=== PATIENT | male | born 1940 | race Caucasian/White ===

== ENCOUNTER 2017-01-08 15:30 | Inpatient (IN) | payer MEDICARE, BC ==
[2017-01-09] MEDS ORDERED: Protamine Sulfate 50 MG/5 ML VIAL ONE (12:14)
[2017-01-09] MEDS ORDERED: Heparin 5,000 UNITS/ML VIAL ONE (12:14)
[2017-01-09] MEDS ORDERED: Fentanyl 100 MCG/2 ML VIAL ONE (12:32)
[2017-01-09] MEDS ORDERED: Glycopyrrolate 0.2 MG/ML 5 ML SYRINGE ONE ×2 (13:04)
[2017-01-09] MEDS ORDERED: Lidocaine 2% PF 10 ML AMP (For Epidural Use) ONE (13:04)
[2017-01-09] MEDS ORDERED: Propofol 200 MG/20 ML VIAL ONE (13:04)
[2017-01-09] MEDS ORDERED: Dexamethasone 20 MG/5 ML VIAL ONE (13:04)
[2017-01-09] MEDS ORDERED: Ondansetron HCl/PF 4 MG/2 ML Vial ONE (13:04)
[2017-01-09] MEDS ORDERED: ePHEDrine/0.9% NaCl/PF SYRINGE 50 mg/10 ml ONE ×2 (13:04→14:39)
[2017-01-09] MEDS ORDERED: PHENYLEPHRINE-NS 100 MCG/ML 10 ML SYRINGE ONE (13:04)
[2017-01-09] MEDS ORDERED: Ondansetron HCl/PF 4 MG/2 ML Vial IVP PRN ×2 (14:54→15:11)
[2017-01-09] MEDS ORDERED: Promethazine HCl 25 MG/ML VIAL SLOW IVP PRN (14:54)
[2017-01-09] MEDS ORDERED: Promethazine HCl 25 MG/ML VIAL IM PRN (14:54)
[2017-01-09] MEDS ORDERED: HYDROcodone/Acetaminophen 5/325 mg Tablet PO PRN ×2 (15:11)
[2017-01-09] MEDS ORDERED: Nitroglycerin 50 MG/250 ML BOT 250 ML IVPB PRN (15:11)
[2017-01-09] MEDS ORDERED: Acetaminophen 325 MG TAB PO PRN (15:11)
[2017-01-09] MEDS ORDERED: Fentanyl 100 MCG/2 ML VIAL SLOW IVP PRN ×2 (15:11)
[2017-01-09] MEDS ORDERED: Dextrose 5% in Water 1,000 ML IV PRN (15:11)
[2017-01-09] MEDS ORDERED: Dextrose 50% Abboject 50 ML SYRINGE SLOW IVP PRN (15:11)
[2017-01-09] MEDS ORDERED: Phenylephrine 10 MG/NS 250 ML 250 ML IVPB PRN (15:11)
[2017-01-09 16:39] VITALS: BMI 26.4
[2017-01-09] MEDS: Sodium Chloride 0.9% 1,000 ML IV SCH (16:49)
[2017-01-09] MEDS: HumaLOG 300 UNITS/3 ML VIAL SC PRN ×2 (17:42→21:41)
--- NOTE | 2017-01-09 20:19 | OP ---
DATE OF PROCEDURE: 01/09/2017 PREOPERATIVE DIAGNOSIS: Asymptomatic left carotid stenosis. POSTOPERATIVE DIAGNOSIS: Asymptomatic left carotid stenosis. PROCEDURE: Left carotid endarterectomy. SURGEON: Gerry Zhang M.D. ANESTHESIA: General endotracheal. ESTIMATED BLOOD LOSS: Less than 100. PROCEDURE IN DETAIL: After consent was obtained, the patient was brought to the operating room and placed in the supine position on the operating room table. Appropriate anesthetic monitor was place d and general endotracheal anesthesia induced. Head was rotated to the right. Left neck was preppe d and draped in usual sterile fashion. Skin incision was made along the anterior border of sternocl eidomastoid. Platysma was incised with electrocautery. Common internal and external carotid arteri es were carefully exposed. Facial vein was divided between clips and ties. The vagus nerve and hyp oglossal nerves were noted and protected throughout the procedure. The patient was given 7500 units of heparin. After 3 minutes, the internal common and external carotid arteries were serially clamp ed. Incision was made on the common carotid artery extended through the bulb distal to the plaque. A 10-Danish [place] shunt was placed and antegrade flow reestablished. There was a cicatrix of athe rosclerotic plaque at the origin of the internal carotid artery. The remainder of the carotid was f ree from any atherosclerotic disease. Endarterectomy was performed with hemostats through med ial layer. Eversion endarterectomy was performed in the external carotid artery. Good tapered dist al endpoint was obtained. Due to the size of the carotid, I elected to primarily close the carotid. This was closed with a running 6-0 Prolene suture. Prior to completion of the suture line, the sh unt was clamped and removed. Arteries were backbled and flushed with heparinized saline. Suture li ne was completed. Three separate stitches were placed for hemostasis. 50 mg of protamine was admin istered. Hemostasis was ensured. Wounds were copiously irrigated, closed in layers and Dermabond a pplied to the skin. The patient was awakened, extubated, and neurologically intact in the operating room, patient was transferred to recovery room in ICU after this, will be sent home tomorrow.
[2017-01-10] MEDS: Sodium Chloride 0.9% 1,000 ML IV SCH (02:12)
[2017-01-10] MEDS: HumaLOG 300 UNITS/3 ML VIAL SC PRN (06:12)
--- NOTE | 2017-01-10 06:27 | DIS ---
DIAGNOSES: Asymptomatic left carotid stenosis. PROCEDURES: Left carotid endarterectomy. DESCRIPTION OF HOSPITAL STAY: Mr. Coronado was admitted for elective carotid endarterectomy. He has done well. He is neurologically intact postoperatively, being discharged to home today in good cond ition. He will follow up with me in 2 weeks.
[2017-01-10 07:34] VITALS: TEMP 97.6
[2017-01-10] MEDS ORDERED: Aspirin 325 mg Enteric Coated Tablet PO SCH (09:00)
--- NOTE | 2017-01-26 22:53 | ADD-OP ---
ADDENDUM: During the initial dissection, a left internal jugular lymph node was taken and sent for routine pat hologic examination.
== END 2017-01-10 09:02 | disposition home or self-care (01) | DRG 39 ==
LOC: SURG A 01-09 08:55 → CCU 01-09 15:23
PROVIDERS: ADMIT Thoracic Surgery (Cardiothoracic Vascular Surgery); ATTEND Thoracic Surgery (Cardiothoracic Vascular Surgery)
PROC: 03CJ0ZZ Extirpation of Matter from Left Common Carotid Artery, Open Approach (ICD-10-PCS; principal; 2017-01-09)
PROC: 07B20ZX Excision of Left Neck Lymphatic, Open Approach, Diagnostic (ICD-10-PCS; 2017-01-09)
DX: I65.22 Occlusion and stenosis of left carotid artery (principal); E11.9 Type 2 diabetes mellitus without complications; I10 Essential (primary) hypertension; Z79.82 Long term (current) use of aspirin; Z95.810 Presence of automatic (implantable) cardiac defibrillator; Z89.422 Acquired absence of other left toe(s); Z87.891 Personal history of nicotine dependence; Z82.49 Family history of ischemic heart disease and other diseases of the circulatory system; Z80.7 Family history of other malignant neoplasms of lymphoid, hematopoietic and related tissues
CPT/HCPCS: 36416; 80048; 85027; 88184; 88305; 88341; 88342; 93005; 93010; 94640; J1100; J1642; J1644; J2001; J2405; J2704; J2720; J3010; J7620

== ENCOUNTER 2017-01-08 16:27 | Outpatient (CLI) | payer MEDICARE, BC ==
[2017-01-08 20:08] LABS: Anion Gap 17 mmol/L (10-20); BUN (Urea Nitrogen) 21 mg/dL (8.4-25.7); Calc. Creatinine Clearance 0 mL/min (70-130); Calcium 9.8 mg/dL (7.8-10.44); Carbon Dioxide 24 mmol/L (23-31); Chloride 105 mmol/L (98-107); Estimated GFR-MDRD 61
[2017-01-08 20:12] LABS: Hematocrit 39.5 % (42.0-52.0); Mean Platelet Volume 6.9 fL (7.4-10.4); Red Blood Cell (RBC) Count 4.26 mill/uL (4.70-6.10); White Blood Cell (WBC) Count 12.2 thou/uL (4.8-10.8)
--- NOTE | 2017-01-09 10:01 | EKG ---
Test Reason : PREOP Blood Pressure : / mmHG Vent. Rate : 059 BPM Atrial Rate : 058 BPM P-R Int : 000 ms QRS Dur : 150 ms QT Int : 428 ms P-R-T Axes : 000 107 -51 degrees QTc Int : 423 ms Demand pacemaker; interpretation is based on intrinsic rhythm Undetermined rhythm Right bundle branch block T wave abnormality, consider inferolateral ischemia Abnormal ECG When compared with ECG of 13-AUG-2015 15:51, Current undetermined rhythm precludes rhythm comparison, needs review Right bundle branch block is now Present Confirmed by NEIL CARL ([id number]) on 01/09/2017 10:01:17 AM Referred By: SAMANTHA Confirmed By:NEIL CARL
== END 2017-01-08 16:28 | disposition home or self-care (01) ==
LOC: LABBT 16:27
PROVIDERS: ATTEND Thoracic Surgery (Cardiothoracic Vascular Surgery)
DX: Z01.818 Encounter for other preprocedural examination (principal)
CPT/HCPCS: 80048; 85027; 93005; 93010

== ENCOUNTER 2017-06-08 13:22 | Inpatient (IN) | payer MEDICARE, BC ==
[2017-06-08] MEDS ORDERED: Clindamycin/D5W 600 mg/50 ml Premix Bag ONE (13:54)
[2017-06-08 14:08] LABS: #Eosinphils 0.2 thou/uL (0.0-0.7); #Monocytes 0.8 thou/uL (0.11-0.59); #Neutrophils 8.3 thou/uL (1.40-6.50); %Basophils 0.3 % (0.0-1.0); %Eosinophils 1.7 % (0.0-10.0); %Lymphocytes 17.9 % (21.0-51.0); %Monocytes 7.2 % (0.0-10.0); %Neutrophils 72.9 % (42.0-75.0); Hemoglobin 13.5 g/dL (14.0-18.0); Mean Corpuscular HGB CONC 32.9 g/dL (32.0-36.0); Mean Corpuscular Hemoglobin 29.5 pg (27.0-31.0); Mean Corpuscular Volume 89.6 fl (80.0-94.0); Mean Platelet Volume 5.9 fL (7.4-10.4); Platelet Count 462 thou/uL (130-400); RBC Distribution Width 12.5 % (11.5-14.5); Red Blood Cell (RBC) Count 4.57 mill/uL (4.70-6.10); White Blood Cell (WBC) Count 11.3 thou/uL (4.8-10.8)
[2017-06-08 14:36] LABS: ALT (SGPT) 17 U/L (8-55); AST (SGOT) 13 U/L (5-34); Albumin 3.3 g/dL (3.4-4.8); Alkaline Phosphatase 131 U/L (40-150); Anion Gap 14 mmol/L (10-20); BUN (Urea Nitrogen) 16 mg/dL (8.4-25.7); Bilirubin, Total 0.5 mg/dL (0.2-1.2); Calc. Creatinine Clearance 0 mL/min (70-130); Calcium 9.7 mg/dL (7.8-10.44); Carbon Dioxide 27 mmol/L (23-31); Chloride 97 mmol/L (98-107); Estimated GFR-MDRD 56; Globulin 4.3 g/dL (2.4-3.5); Potassium 4.6 mmol/L (3.5-5.1); Protein, Total 7.6 g/dL (5.8-8.1); Sodium 133 mmol/L (136-145)
[2017-06-08 14:42] LABS: Glucose 570 mg/dL (83-110)
[2017-06-08] MEDS ORDERED: Insulin Regular 300 UNITS/3 ML VIAL ONE (14:45)
--- NOTE | 2017-06-08 15:17 | ULT ---
BILATERAL TESTICULAR ULTRASOUND WITH DOPPLER: (Krishna scale, color flow, and Spectral Doppler) Date: 06/08/17 HISTORY: Left testicular pain. FINDINGS: The right testis measures 2.4 x 3.2 x 1.9 cm, without focal mass or microlithiasis. A right-sided hyd rocele is present. Flow is demonstrated to the right testis. The right epididymis also has a normal a ppearance with normal flow. The left testis or epididymis are not seen. There is a complex mass in the left scrotal sac measuring 4.5 x 4.3 x 4.3 cm. Peripheral blood flow is seen. IMPRESSION: Complex left-sided scrotal mass, which may either be due to abscess or malignancy. Urologic consultat ion is recommended. POS: NIVIA
[2017-06-08 16:37] LABS: Bilirubin Moderate (Negative); Blood, Urine Negative (Negative); Clarity CLEAR (Clear); Glucose, Urine (Dipstick) >=1000 mg/dL (Negative); Leukocyte Negative (Negative); Nitrite Negative (Negative); Protein, Urine (Dipstick) Negative (Neg-Trace); Specific Gravity, Urine 1.036 (1.002-1.036); Urobilinogen 0.2 mg/dL (0.2-1.0); pH, Urine 6.5 (5.0-9.0)
[2017-06-08] MEDS ORDERED: cefTRIAXone\\ROCEPHIN 2 GM in Sodium Chloride 0.9% 100 ML IVPB SCH (16:45)
[2017-06-08] MEDS ORDERED: Ondansetron HCl/PF 4 MG/2 ML Vial IVP PRN (17:03)
[2017-06-08] MEDS ORDERED: Acetaminophen 325 MG TAB PO PRN (17:03)
[2017-06-08] MEDS ORDERED: Senokot 8.6 MG TAB PO PRN (17:03)
[2017-06-08] MEDS ORDERED: Bisacodyl 5 MG TAB PO PRN (17:03)
[2017-06-08] MEDS ORDERED: HYDROcodone/Acetaminophen 5/325 mg Tablet PO PRN (17:03)
[2017-06-08] MEDS ORDERED: traMADol HCl 50 MG TAB PO PRN (17:09)
[2017-06-08] MEDS ORDERED: HYDROcodone/Acetaminophen 10/325 mg Tablet PO PRN (17:11)
[2017-06-08] MEDS ORDERED: Dextrose 50% Abboject 50 ML SYRINGE SLOW IVP PRN (17:11)
[2017-06-08] MEDS ORDERED: Dextrose 5% in Water 1,000 ML IV PRN (17:11)
[2017-06-08] MEDS ORDERED: VANCOMYCIN IVPB PRN (17:27)
[2017-06-08 17:53] LABS: Lactic Acid 2.5 mmol/L (0.5-2.2)
[2017-06-08 18:10] VITALS: BMI 25.7
[2017-06-08] MEDS: Sodium Chloride 0.9% 1,000 ML IV SCH (18:26)
--- NOTE | 2017-06-08 19:25 | HP ---
CHIEF COMPLAINT: Pain and swelling of the left testicle. HISTORY OF PRESENT ILLNESS: This is a 76-year-old gentleman with a past medical history significant for diabetes as well as hypertension, who presents to the hospital due to swelling and redness of the left testicle that started this morning. The was at bedside was able to give a full history as well as who states that the patient initially had these symptoms approximately about a week ago when he went to the hospital and was given doxycycline as well as pain medications. states that the patient had taken a full complete course of antibiotics, which had helped his symptoms significantly . They states that his symptoms had resolved. The swelling as well as redness that also resolved, b ut over one night, today his symptoms are suddenly became worse when he woke up this morning and noti jed that it was very red, swollen, and tender, so they decided to come to the hospital for further ev aluation and management. The patient denies any dysuria, colors, changes in urine, fevers, chills, o r night sweats. PAST MEDICAL HISTORY: See HPI. PAST SURGICAL HISTORY: Includes skin graft on the right hand. FAMILY HISTORY: Significant for cardiovascular disease as well as lymphoma. HOME MEDICATIONS: Still trying to be retrieved at this time. SOCIAL HISTORY: The patient denies any tobacco or recreational drug use or alcohol use. ALLERGIES: No known drug allergies. PHYSICAL EXAMINATION: VITAL SIGNS: Blood pressure is 156/62, pulse 78, respiratory rate was 18, temperature was 99.0. Pat ient was saturating 99% oxygen on room air. GENERAL: Patient was in no apparent distress, was resting comfortably in the bed, alert, awake, orie nted x3. HEENT: Normocephalic, atraumatic. Eyes: Pupils are round and reactive to light. Extraocular muscl es were intact. Conjunctivae was pink. Sclerae was nonicteric. Mouth: Oral mucosa pink and moist. No icterus was noted. NECK: Soft, supple. No JVD, carotid bruits, or lymphadenopathy. CARDIOVASCULAR: Regular rate and rhythm. S1, S2 sounds are heard. No S3, no S4, or murmurs. RESPIRATORY: Clear to auscultation bilaterally. No added sounds. ABDOMEN: Bowel sounds, soft, nontender, nondistended. EXTREMITIES: Pulses were 2+ both dorsalis and radial pulse. No pitting edema could be appreciated. GENITOURINARY: Patient's testicle was significantly enlarged, reddened, erythema, swollen, tender to touch. Very indurated. Could not appreciate much fluctuance of the left testicle. Right testicle was normal. No drainage or pus could be appreciated from the orifice of the penis. LABORATORY AND DIAGNOSTIC DATA: White blood cell count 11.3, hemoglobin was 13.5, platelet count was 462. Sodium was 133, potassium was 4.6, chloride was 97, bicarbonate was 21, BUN was 16, creatinine was 1.26, glucose 570 before improvement, 294 after insulin was given as well as fluids as well as l actic acid being 3.3. Urinalysis did show significant amount of glucose, otherwise was negative. Te sticular ultrasound showed complex left side has scrotal mass which may represent abscess or malignan cy. ASSESSMENT AND PLAN: 1. Large left testicle, testicular mass, possibly secondary to abscess. Malignancy is unlikely at t his time due to how rapid the swelling had pursued from yesterday to today. 2. Sepsis secondary to testicular cellulitis with probable abscess. 3. Diabetes, uncontrolled, possibly secondary to sepsis, significantly improved after fluids and ins ulin has been given in the ER. 4. Hypertension. PLAN: We will place the patient on IV antibiotics with vancomycin as well as Zosyn. We will get [facility] help to renally dosed his vancomycin. Urology has already been consulted, so we will foll ow up recommendations accordingly. We will draw another lactic acid as patient's initially lactic ac id was 3.3, but I do anticipated some improving with fluid boluses that he has received in the ER neeta may with the maintenance fluids he will be getting. We will resume home medication at the medicine re conciliation. If the patient is on metformin, we will hold off on it for now. Continue to cover him with sliding scale as well as rest of his diabetic medications. We will also resume any other medic ations that he may have after we can reconsolidate his medicine completely. We will place the patien t on ADA diet. Monitor labs in a.m. Pain management control as needed.
[2017-06-08] MEDS ORDERED: Vancomycin HCl 1.25 GM in Sodium Chloride 0.9% 250 ML 250 ML IVPB SCH (20:00)
--- NOTE | 2017-06-08 20:04 | CON ---
DATE OF CONSULTATION: 06/08/2017 HISTORY OF PRESENT ILLNESS: This is a 76-year-old white male who I was asked to see by the emergency room physician and then by the Hospitalist Service after he was admitted. He has a swollen left dain ticle. His and he have given me most of the history. This started a week and a day ago. He duvall d discomfort and swelling otherwise has in both sides of the scrotum and that was red. He went to a small hospital in [place] as they live closer to [place] and he had an ultrasound done there. Beba adam does not know what the ultrasound showed. He had no blood work and no urinalysis done. She s aid that they told them that they were not sure what he had. They could not find anything wrong. Beba childs thought maybe it was an infection and sent him home on doxycycline and some pain medication. He a ctually did improve and he finished the antibiotic yesterday and then today he had a return of pain j ust on the left side and swelling on the left side. examined and found the left testicle is charan y hard and tender and she brought him to [place]. Here at [place], he had a testicular ultraso und done, which I have looked at and the right testicle looks normal. The left testicle is swollen. He cannot really make out the normal architecture of the left testicle. There is no blood in the ce ntral part of what is probably the testicle. There was some blood flow seen in the periphery of it. This was red as either an abscess or malignancy. The does not recall being told anything like this being found on his ultrasound 8 days ago. His white count is slightly elevated at 11.3, his hem oglobin 13.5, his platelet count is normal. His glucose was found to be 570, he is a diabetic, but i t is quite high for him. They were concerned about how high it was, it has not been running this hig h. His liver function tests are normal. Creatinine is 1.27. His urinalysis showed sugar and some b ilirubin, but no red cells or white cells in the urine. His vital signs here, afebrile, vital signs stable, good O2 sat and a normal blood pressure. PAST MEDICAL HISTORY: He has diabetes. He has high blood pressure. MEDICATIONS: He takes metformin and valsartan/hydrochlorothiazide. SOCIAL HISTORY: He drinks socially. He does not smoke. PAST SURGICAL HISTORY: He has had toe amputations done because of peripheral vascular disease. He h as had some orthopedic surgery and some skin grafting. GENITOURINARY HISTORY: He gets up once at night to urinate. No history of infections in the urine, blood in the urine, burning when he urinates. No history of urinary tract stone disease. No history of prostate cancer or prostate surgery. He has some urgency to urinate, occasional urge incontinenc e. PHYSICAL EXAMINATION: PELVIC: He has no flank tenderness. ABDOMEN: Soft, nontender. Bladder is not appeared to be distended. GENITOURINARY: He is uncircumcised and there is phimosis. I cannot retract the skin. I would not r ecommend trying to because this is probably related to his diabetes. The right is in normal position and nontender and soft. There is no significant evidence of scrotal cellulitis. There is some thic kening of the scrotal skin. There is a firm and swollen mass in the left testicle, which I am assumi ng is probably his testicle inside after the tunica vaginalis. It is tender and very indurated. He has no inguinal lymph nodes. IMPRESSION AND PLAN: Abnormal left testicle. I think this probably is at this point a vascular prob philippe possibly related to his diabetes now, but may have started with an infection. He does not have a ny history of trauma to suggest this started from trauma. He seems to be a bit old that this would b e a torsion. We do not have any knowledge of what his ultrasound looked like a week ago. I am going to try to get that information sent from [place]. I will see also if they happened to do any bloo d or urine studies on him there. His says they did, but perhaps they did not, she missed that. He is currently on antibiotics and certainly not septic looking currently. I think he may ultimatel y need to have his testicle removed. We talked but even doing that tomorrow. We will make him n.p.o . after midnight from the outside chance that we do need to do that. I think if possibly he starts t o show some improvement on the antibiotic that he is on, which is piperacillin and tazobactam, then eran martinez we will watch him for another day or so and see if this perhaps does start to respond. I have a sked his nurse to get him to sign a release of records from the [facility] to fax that over a nd hopefully get that information by the morning and make him n.p.o. after midnight. We will hold hi s Lovenox in case he does go to the OR tomorrow.
[2017-06-08] MEDS: Piperacillin/Tazobactam 3.375 GM in Sodium Chloride 0.9% 100 ML IVPB SCH (20:05)
[2017-06-09] MEDS: Piperacillin/Tazobactam 3.375 GM in Sodium Chloride 0.9% 100 ML IVPB SCH ×4 (00:35→17:13)
[2017-06-09] MEDS: Sodium Chloride 0.9% 1,000 ML IV SCH ×3 (05:32→20:30)
[2017-06-09 06:04] LABS: #Eosinphils 0.2 thou/uL (0.0-0.7); #Lymphocytes 2.4 thou/uL (1.20-3.40); #Monocytes 0.9 thou/uL (0.11-0.59); #Neutrophils 8.3 thou/uL (1.40-6.50); %Basophils 0.3 % (0.0-1.0); %Lymphocytes 20.5 % (21.0-51.0); %Monocytes 7.4 % (0.0-10.0); %Neutrophils 69.7 % (42.0-75.0); Hemoglobin 11.9 g/dL (14.0-18.0); Mean Corpuscular HGB CONC 31.4 g/dL (32.0-36.0); Mean Corpuscular Hemoglobin 27.8 pg (27.0-31.0); Mean Corpuscular Volume 88.6 fl (80.0-94.0); Mean Platelet Volume 5.7 fL (7.4-10.4); Platelet Count 440 thou/uL (130-400); RBC Distribution Width 12.4 % (11.5-14.5); Red Blood Cell (RBC) Count 4.27 mill/uL (4.70-6.10); White Blood Cell (WBC) Count 11.8 thou/uL (4.8-10.8)
[2017-06-09 06:14] LABS: Anion Gap 10 mmol/L (10-20); BUN (Urea Nitrogen) 13 mg/dL (8.4-25.7); Calc. Creatinine Clearance 90 mL/min (70-130); Calcium 8.5 mg/dL (7.8-10.44); Carbon Dioxide 26 mmol/L (23-31); Chloride 105 mmol/L (98-107); Estimated GFR-MDRD Greater than 90; Glucose 138 mg/dL (83-110); Potassium 4.2 mmol/L (3.5-5.1); Sodium 137 mmol/L (136-145)
[2017-06-09] MEDS ORDERED: Enoxaparin Sodium 40 MG/0.4 ML SYRINGE SC SCH (09:00)
[2017-06-09] MEDS ORDERED: FLU VACC TS2017-18 (>65YR) 0.5 ML SYRINGE IM ONE (09:00)
[2017-06-09] MEDS ORDERED: Prevnar 13-Val Conj/PF 0.5 ML SYRINGE IM ONE (09:00)
[2017-06-09] MEDS ORDERED: Ondansetron HCl/PF 4 MG/2 ML Vial IVP PRN (10:27)
--- NOTE | 2017-06-09 10:29 | PDOC.PN ---
- Subjective Encounter Start Date: 06/09/17 Encounter Start Time: 09:30 states he is doing well minimal pain of the testicle when lying completely still at bedside - Objective Resuscitation Status: Resuscitation Status FULL:Full Resuscitation Vital Signs & Weight: Vital Signs (12 hours) Temp Pulse Resp BP Pulse Ox 06/09/17 08:00 98.5 F 76 16 96 06/09/17 07:12 98.5 F 76 16 141/63 H 96 06/09/17 04:00 97.7 F 69 20 138/70 97 06/09/17 00:00 97.5 F L 69 18 159/81 H 97 I&O: 06/08/17 06/09/17 06/10/17 06:59 06:59 06:59 Intake Total 1700 Balance 1700 Result Diagrams: 06/09/17 05:20 06/09/17 05:20 Additional Labs: Accuchecks 06/09/17 06/08/17 06/08/17 05:23 20:22 16:34 POC Glucose 201 H 303 H 294 H Phys Exam - Physical Examination Constitutional: NAD HEENT: PERRLA, moist MMs, sclera anicteric Neck: no nodes, no JVD, supple Respiratory: no wheezing, no rales, clear to auscultation bilateral Cardiovascular: RRR, no significant murmur, no rub Gastrointestinal: soft, non-tender, no distention Musculoskeletal: no edema, pulses present Neurological: non-focal, normal sensation Psychiatric: normal affect, A&O x 3 -: right testicle swollen, red and very tender to light touch Dx/Plan (1) Mass of left testicle Code(s): N50.9 - DISORDER OF MALE GENITAL ORGANS, UNSPECIFIED Status: Acute (2) Sepsis affecting skin Code(s): A41.9 - SEPSIS, UNSPECIFIED ORGANISM Status: Acute Comment: due to left testicle (3) DM (diabetes mellitus) type II controlled peripheral vascular disorder Code(s): E11.51 - TYPE 2 DIABETES W DIABETIC PERIPHERAL ANGIOPATH W/O GANGRENE Status: Acute - Plan cont current plan of care, plan discussed w/ family, continue antibiotics * . to undergo orchiectomy today continue IV abx pain mgmt control follow recs from urology post surgery
[2017-06-09] MEDS ORDERED: Fentanyl 100 MCG/2 ML VIAL ONE (10:39)
[2017-06-09] MEDS ORDERED: Bupivacaine 0.5% 10 ML VIAL ONE ×2 (11:04→11:56)
--- NOTE | 2017-06-09 12:19 | OP ---
DATE OF PROCEDURE: 06/09/2017 PREOPERATIVE DIAGNOSIS: Left scrotal mass. POSTOPERATIVE DIAGNOSES: Left scrotal mass plus left testicular epididymal abscess. PROCEDURE PERFORMED: Scrotal exploration, left orchiectomy. SURGEON: Dr. Gerry Kamara. ANESTHESIA: General with local. ESTIMATED BLOOD LOSS: Less than 50 ml. DRAINS PLACED: A 1 inch [place] drain passed into his testicle, epididymis, and cord structures. CULTURES SENT: Pus for aerobic, anaerobic, and Gram stain. OPERATIVE TECHNIQUE: After obtaining written and verbal consent from the patient, he was taken to [facility] operating suite. He was given a general anesthetic, oral obturator intubation. He had PlexiPulses placed on his lower extremities. His scrotum was shaved. He sterilely prepped and draped. An inci tram was made along the median raphe and dependent portion of the scrotum and taken into the left hem iscrotum. There was a lot of edema to the scrotal wall into the testicular tunica. We entered the t unica vaginalis, and under a fair amount of pressure, probably 50-60 mL of pus were released. We cul tured this. We then opened up the incision inside of the tunica vaginalis and testicle and probably the epididymis is what had abscess and then we were able to dissect the cords to get this free up hig h into the scrotum and placed a straight hemostat, divided into 2, and then placed Kellys across it x 2 before removing the specimen and using 0 chromic ties to secure the cord structures x2 on both side s. We then removed the tunica vaginalis, which was adherent to the inside of the testicle. We then irrigated this area out copiously with sterile saline, obtained hemostasis with electrocautery unit, and placed a Jacki drain high up in the inguinal region and brought down through the scrotum exitin g the wound at most inferior aspect. We then closed dartos layer with 3 single 3-0 chromic stitches and the skin with 2 single chromic stitches that was quite loose. We then placed 4 x 4s and web pant ies. The patient was then awakened and extubated and taken by stretcher to the recovery room.
[2017-06-09] MEDS ORDERED: traMADol HCl 50 MG TAB PO PRN (12:31)
[2017-06-09] MEDS ORDERED: PROPOFOL 200 MG/20 ML VIAL ONE (15:45)
[2017-06-09] MEDS ORDERED: Lidocaine 1% PF 5 ML VIAL ONE (15:45)
[2017-06-09] MEDS ORDERED: Ondansetron HCl/PF 4 MG/2 ML Vial ONE (15:45)
[2017-06-09] MEDS ORDERED: Dexamethasone 20 MG/5 ML VIAL ONE (15:45)
[2017-06-09] MEDS: HumaLOG 300 UNITS/3 ML VIAL SC PRN ×2 (17:10→20:43)
[2017-06-09] MEDS ORDERED: Vancomycin HCl 1.25 GM in Sodium Chloride 0.9% 250 ML 250 ML IVPB SCH (18:00)
[2017-06-09] MEDS: Vancomycin HCl 1.25 GM in Sodium Chloride 0.9% 250 ML 250 ML IVPB SCH (18:34)
[2017-06-10] MEDS: Piperacillin/Tazobactam 3.375 GM in Sodium Chloride 0.9% 100 ML IVPB SCH ×4 (00:46→17:22)
[2017-06-10 05:19] LABS: #Lymphocytes 1.4 thou/uL (1.20-3.40); #Monocytes 0.7 thou/uL (0.11-0.59); #Neutrophils 11.7 thou/uL (1.40-6.50); %Basophils 0.1 % (0.0-1.0); %Eosinophils 0.2 % (0.0-10.0); %Lymphocytes 10.4 % (21.0-51.0); %Monocytes 4.9 % (0.0-10.0); %Neutrophils 84.4 % (42.0-75.0); Hemoglobin 11.7 g/dL (14.0-18.0); Mean Corpuscular HGB CONC 32.9 g/dL (32.0-36.0); Mean Corpuscular Hemoglobin 29.3 pg (27.0-31.0); Mean Platelet Volume 5.9 fL (7.4-10.4); Platelet Count 445 thou/uL (130-400); RBC Distribution Width 12.4 % (11.5-14.5); White Blood Cell (WBC) Count 13.9 thou/uL (4.8-10.8)
[2017-06-10 05:29] LABS: Anion Gap 10 mmol/L (10-20); BUN (Urea Nitrogen) 13 mg/dL (8.4-25.7); Calc. Creatinine Clearance 75 mL/min (70-130); Calcium 8.5 mg/dL (7.8-10.44); Carbon Dioxide 26 mmol/L (23-31); Chloride 105 mmol/L (98-107); Estimated GFR-MDRD 77; Glucose 253 mg/dL (83-110); Potassium 4.5 mmol/L (3.5-5.1); Sodium 136 mmol/L (136-145)
[2017-06-10] MEDS: HumaLOG 300 UNITS/3 ML VIAL SC PRN ×4 (06:33→21:11)
[2017-06-10] MEDS: Sodium Chloride 0.9% 1,000 ML IV SCH (07:15)
--- NOTE | 2017-06-10 11:51 | PDOC.PN ---
- Subjective Encounter Start Date: 06/10/17 Encounter Start Time: 09:35 Subjective: pain is better, is amb in room -: eating better - Objective Resuscitation Status: Resuscitation Status FULL:Full Resuscitation MAR Reviewed: Yes Vital Signs & Weight: Vital Signs (12 hours) Temp Pulse Resp BP Pulse Ox 06/10/17 08:00 97.6 F 82 16 98 06/10/17 07:59 97.6 F 82 16 144/81 H 98 06/10/17 04:59 97.4 F L 73 12 116/67 99 06/10/17 00:00 98.2 F 78 12 125/71 98 I&O: 06/09/17 06/10/17 06/11/17 06:59 06:59 06:59 Intake Total 1700 480 Balance 1700 480 Result Diagrams: 06/10/17 04:28 06/10/17 04:28 Additional Labs: Accuchecks 06/10/17 06/09/17 06/09/17 05:52 20:32 16:21 POC Glucose 268 H 412 H 369 H 06/09/17 12:22 POC Glucose 159 H Phys Exam - Physical Examination HEENT: PERRLA, moist MMs Neck: no JVD, supple Respiratory: no wheezing, no rales Cardiovascular: RRR, no significant murmur Gastrointestinal: soft, non-tender, positive bowel sounds Musculoskeletal: no edema, pulses present Neurological: non-focal, moves all 4 limbs Psychiatric: A&O x 3 Dx/Plan (1) Mass of left testicle Code(s): N50.9 - DISORDER OF MALE GENITAL ORGANS, UNSPECIFIED Status: Acute Comment: s/p left orchiectomy for mass, epididymal abscess (2) DM type 2 (diabetes mellitus, type 2) Status: Chronic Qualifiers: Diabetes mellitus complication status: with unspecified complications 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 insulin use: with intermediate use Qualified Code(s) : E11.8 - Type 2 diabetes mellitus with unspecified complications; Z79.4 - exterminator helper (current) use of insulin; Z79.4 - exterminator helper (current) use of insulin; Z79.4 - senior care (current) use of insulin; Z79.4 - exterminator helper (current) use of insulin (3) HTN (hypertension) Code(s): I10 - ESSENTIAL (PRIMARY) HYPERTENSION Status: Chronic Qualifiers: Hypertension type: essential hypertension Qualified Code(s): I10 - Essential (primary) hypertension (4) Dyslipidemia Code(s): E78.5 - HYPERLIPIDEMIA, UNSPECIFIED Status: Chronic - Plan is on vanc and zosyn -: iv hydration per urology advice -: await cultures -: dc plan per urology advice -: add home meds leevemir and metformin for dm * . Review of Systems - Medications/Allergies Allergies/Adverse Reactions: Allergies Allergy/AdvReac Type Severity Reaction Status Date / Time No Known Drug Allergies Allergy Verified 06/08/17 19:00 Medications: Current Medications Acetaminophen (Tylenol) 650 mg PO Q6H PRN PRN Reason: Headache/Fever or Pain Hydrocodone Bitart/Acetaminophen ([place] 5/325) 1 tab PO Q4H PRN PRN Reason: Moderate Pain (4-6) Hydrocodone Bitart/Acetaminophen ([place] 10/325) 1 tab PO Q4H PRN PRN Reason: Severe Pain (7-10) Atorvastatin Calcium (Lipitor) 20 mg PO HS ATUL Bisacodyl (Dulcolax) 10 mg PO DAILYPRN PRN PRN Reason: Constipation Cyanocobalamin (Vitamin B-12) 1,000 mcg PO DAILY [facility] Dextrose/Water (Dextrose 50%) 25 gm SLOW IVP PRN PRN PRN Reason: Hypoglycemia Glucagon (Glucagon) 1 mg IM PRN PRN PRN Reason: Hypoglycemia Sodium Chloride (Normal Saline 0.9%) 1,000 mls @ 100 mls/hr IV .Q10H [facility] Last Admin: 06/10/17 07:15 Dose: Not Given Piperacillin Sod/Tazobactam (Sod 3.375 gm/ Sodium Chloride) 100 mls @ 200 mls/ hr IVPB Q6HR [facility] Last Admin: 06/10/17 05:28 Dose: 100 mls Dextrose/Water (D5w) 1,000 mls @ 0 mls/hr IV .Q0M PRN; As Directed PRN Reason: Hypoglycemia Vancomycin HCl 1.25 gm/ Sodium (Chloride) 250 mls @ 166.667 mls/hr IVPB 1800 [facility] Last Admin: 06/09/17 18:34 Dose: 250 mls Insulin Detemir 35 units/ (Miscellaneous Medication) 0.35 mls @ 0 mls/hr SC QAM [facility] Insulin Human Lispro (Humalog) 0 units SC .MODERATE SLIDING SC PRN PRN Reason: Moderate Correctional Scale Last Admin: 06/10/17 06:33 Dose: 6 unit Memantine (Namenda) 10 mg PO BID [facility] Metformin HCl (Glucophage) 1,000 mg PO BID-[facility] Metoprolol Tartrate (Lopressor) 75 mg PO BID [facility] Miscellaneous Medication (Pharmacy To Dose) 1 each IVPB PRN PRN PRN Reason: Pharmacy to dose Ondansetron HCl (Zofran) 4 mg IVP Q6H PRN PRN Reason: Nausea/Vomiting Senna (Senokot) 2 tab PO HSPRN PRN PRN Reason: Constipation Sodium Chloride (Flush - Normal Saline) 10 ml IVF Q12HR [facility] Last Admin: 06/10/17 07:15 Dose: Not Given Sodium Chloride (Flush - Normal Saline) 10 ml IVF PRN PRN PRN Reason: Saline Flush Spironolactone (Aldactone) 12.5 mg PO QAM-[facility] Tramadol HCl (Ultram) 50 mg PO Q6H PRN PRN Reason: Mild Pain (1-3)
[2017-06-10] MEDS: metFORMIN 500 MG TAB PO SCH (17:22)
[2017-06-10 17:34] LABS: Vancomycin, Trough 6.7 ug/mL
[2017-06-10] MEDS: Vancomycin HCl 1.25 GM in Sodium Chloride 0.9% 250 ML 250 ML IVPB SCH ×2 (18:23→18:24)
[2017-06-10] MEDS ORDERED: Atorvastatin Calcium 20 MG TAB PO SCH (21:00)
[2017-06-10] MEDS: Metoprolol Tartrate 50 MG TAB PO SCH (21:09)
[2017-06-11] MEDS: Piperacillin/Tazobactam 3.375 GM in Sodium Chloride 0.9% 100 ML IVPB SCH ×3 (00:01→13:13)
[2017-06-11] MEDS: Sodium Chloride 0.9% 1,000 ML IV SCH (00:02)
[2017-06-11] MEDS ORDERED: Spironolactone 25 MG TAB PO SCH (08:00)
[2017-06-11] MEDS: Vancomycin HCl 1.25 GM in Sodium Chloride 0.9% 250 ML 250 ML IVPB SCH (08:14)
[2017-06-11] MEDS: metFORMIN 500 MG TAB PO SCH ×2 (08:15→17:28)
[2017-06-11] MEDS: Metoprolol Tartrate 50 MG TAB PO SCH (08:15)
[2017-06-11 08:39] VITALS: TEMP 98
[2017-06-11 08:50] LABS: Anion Gap 10 mmol/L (10-20); BUN (Urea Nitrogen) 13 mg/dL (8.4-25.7); Calc. Creatinine Clearance 79 mL/min (70-130); Calcium 8.1 mg/dL (7.8-10.44); Carbon Dioxide 25 mmol/L (23-31); Chloride 108 mmol/L (98-107); Estimated GFR-MDRD 82; Glucose 134 mg/dL (83-110); Potassium 3.7 mmol/L (3.5-5.1); Sodium 139 mmol/L (136-145)
[2017-06-11 08:55] LABS: #Basophils 0.1 thou/uL (0.0-0.2); #Eosinphils 0.2 thou/uL (0.0-0.7); #Lymphocytes 3.3 thou/uL (1.20-3.40); #Monocytes 0.5 thou/uL (0.11-0.59); #Neutrophils 6.2 thou/uL (1.40-6.50); %Basophils 0.6 % (0.0-1.0); %Eosinophils 2.3 % (0.0-10.0); %Lymphocytes 31.6 % (21.0-51.0); %Monocytes 5.1 % (0.0-10.0); %Neutrophils 60.4 % (42.0-75.0); Hemoglobin 11.2 g/dL (14.0-18.0); Mean Corpuscular HGB CONC 32.1 g/dL (32.0-36.0); Mean Corpuscular Hemoglobin 29.2 pg (27.0-31.0); Mean Corpuscular Volume 90.8 fl (80.0-94.0); Mean Platelet Volume 5.9 fL (7.4-10.4); Platelet Count 423 thou/uL (130-400); RBC Distribution Width 12.5 % (11.5-14.5); Red Blood Cell (RBC) Count 3.83 mill/uL (4.70-6.10); White Blood Cell (WBC) Count 10.3 thou/uL (4.8-10.8)
[2017-06-11] MEDS ORDERED: Cyanocobalamin (Vitamin B-12) 1,000 MCG TAB PO SCH (09:00)
[2017-06-11] MEDS ORDERED: Non-Formulary Item 1 EACH (Levemir Flexpen [Levemir Flexpen] 35 UNITS) SC SCH (09:00)
[2017-06-11] MEDS ORDERED: Insulin Detemir 100 UNITS/ML 35 UNITS in Pre-Filled Syringe 1 EACH SC SCH (09:00)
--- NOTE | 2017-06-11 12:16 | PDOC.PN ---
- Subjective Encounter Start Date: 06/11/17 Encounter Start Time: 08:00 Subjective: awake, responds to verbal questions -: is amb to restroom and back -: pain is better - Objective Resuscitation Status: Resuscitation Status FULL:Full Resuscitation MAR Reviewed: Yes Vital Signs & Weight: Vital Signs (12 hours) Temp Pulse Resp BP Pulse Ox 06/11/17 08:38 98.0 F 71 14 148/70 H 97 06/11/17 08:00 98.0 F 71 14 97 I&O: 06/10/17 06/11/17 06/12/17 06:59 06:59 06:59 Intake Total 480 180 Balance 480 180 Result Diagrams: 06/11/17 08:20 06/11/17 08:20 Additional Labs: Accuchecks 06/11/17 06/11/17 06/10/17 11:23 06:02 19:57 POC Glucose 186 H 156 H 308 H 06/10/17 06/10/17 16:41 11:28 POC Glucose 339 H 246 H Phys Exam - Physical Examination HEENT: PERRLA, moist MMs Neck: no JVD, supple Respiratory: no wheezing, no rales Cardiovascular: RRR, no significant murmur Gastrointestinal: soft, non-tender, positive bowel sounds Musculoskeletal: no edema, pulses present Neurological: non-focal, moves all 4 limbs Psychiatric: A&O x 3 Dx/Plan (1) Mass of left testicle Code(s): N50.9 - DISORDER OF MALE GENITAL ORGANS, UNSPECIFIED Status: Acute Comment: s/p left orchiectomy for mass, epididymal abscess (2) DM type 2 (diabetes mellitus, type 2) Status: Chronic Qualifiers: Diabetes mellitus complication status: with unspecified complications Diabetes mellitus chcf insulin use: with wire inserter use Qualified Code(s) : E11.8 - Type 2 diabetes mellitus with unspecified complications; Z79.4 - long-term (current) use of insulin; Z79.4 - 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 Review of Systems - Medications/Allergies Allergies/Adverse Reactions: Allergies Allergy/AdvReac Type Severity Reaction Status Date / Time No Known Drug Allergies Allergy Verified 06/08/17 19:00 Medications: Current Medications Acetaminophen (Tylenol) 650 mg PO Q6H PRN PRN Reason: Headache/Fever or Pain Hydrocodone Bitart/Acetaminophen (Jordan 5/325) 1 tab PO Q4H PRN PRN Reason: Moderate Pain (4-6) Hydrocodone Bitart/Acetaminophen (Jordan 10/325) 1 tab PO Q4H PRN PRN Reason: Severe Pain (7-10) Atorvastatin Calcium (Lipitor) 20 mg PO HS [facility] Last Admin: 06/10/17 21:09 Dose: 20 mg Bisacodyl (Dulcolax) 10 mg PO DAILYPRN PRN PRN Reason: Constipation Cyanocobalamin (Vitamin B-12) 1,000 mcg PO DAILY [facility] Last Admin: 06/11/17 08:20 Dose: 1,000 mcg Dextrose/Water (Dextrose 50%) 25 gm SLOW IVP PRN PRN PRN Reason: Hypoglycemia Glucagon (Glucagon) 1 mg IM PRN PRN PRN Reason: Hypoglycemia Piperacillin Sod/Tazobactam (Sod 3.375 gm/ Sodium Chloride) 100 mls @ 200 mls/ hr IVPB Q6HR [facility] Last Admin: 06/11/17 06:02 Dose: 100 mls Dextrose/Water (D5w) 1,000 mls @ 0 mls/hr IV .Q0M PRN; As Directed PRN Reason: Hypoglycemia Insulin Detemir 35 units/ (Miscellaneous Medication) 0.35 mls @ 0 mls/hr SC QAM [facility] Last Admin: 06/11/17 09:29 Dose: 0.35 mls Vancomycin HCl 1.25 gm/ Sodium (Chloride) 250 mls @ 166.667 mls/hr IVPB 0600, 1800 [facility] Last Admin: 06/11/17 08:14 Dose: 250 mls Insulin Human Lispro (Humalog) 0 units SC .MODERATE SLIDING SC PRN PRN Reason: Moderate Correctional Scale Last Admin: 06/10/17 21:11 Dose: 8 unit Memantine (Namenda) 10 mg PO BID [facility] Last Admin: 06/11/17 08:20 Dose: 10 mg [facility] Last Admin: 06/11/17 08:15 Dose: 1,000 mg Metoprolol Tartrate (Lopressor) 75 mg PO BID [facility] Last Admin: 06/11/17 08:15 Dose: 75 mg Miscellaneous Medication (Pharmacy To Dose) 1 each IVPB PRN PRN PRN Reason: Pharmacy to dose Ondansetron HCl (Zofran) 4 mg IVP Q6H PRN PRN Reason: Nausea/Vomiting Senna (Senokot) 2 tab PO HSPRN PRN PRN Reason: Constipation Sodium Chloride (Flush - Normal Saline) 10 ml IVF Q12HR [facility] Last Admin: 06/11/17 08:22 Dose: Not Given Sodium Chloride (Flush - Normal Saline) 10 ml IVF PRN PRN PRN Reason: Saline Flush Spironolactone (Aldactone) 12.5 mg PO QAM[facility] Last Admin: 06/11/17 08:19 Dose: 12.5 mg Tramadol HCl (Ultram) 50 mg PO Q6H PRN PRN Reason: Mild Pain (1-3)
[2017-06-11] MEDS: HumaLOG 300 UNITS/3 ML VIAL SC PRN ×2 (13:19→17:30)
--- NOTE | 2017-06-11 15:29 | PQF ---
DATE: 06-11-17 ATTN: DR. MARIOLA MANRIQUEZ Please exercise your independent, professional judgment in responding to the clarification form. Clinical indicators are provided on the bottom of this form for your review Please check appropriate box(s) to clarify if the following diagnosis has been ruled in our ruled out: SEPSIS (CDI/Coding list diagnosis here) [ ] Ruled in diagnosis [ ] Continue to treat [ ] Resolved [ x ] Ruled out diagnosis [ ] Other diagnosis [ ] Unable to determine In addition, please specify: Present on Admission (POA): [ ] Yes [ ] No [ ] Unable to determine For continuity of documentation, please document condition throughout progress notes and discharge summary. Thank You. CLINICAL INDICATORS - SIGNS / SYMPTOMS / LABS H&P: SEPSIS SECONDARY TO TESTICULAR CELLULITIS WITH PROBABLE ABSCESS. PN DR. VERDIN 06-09-17: ACUTE SEPSIS DUE TO L TESTICLE PN DR. MANRIQUEZ 06-11-17: ACUTE MASS OF LEFT TESTICLE WBC: 06-08-17: 11.3 06-09-17: 11.8 06-10-17: 13.9 LACTIC ACID: 06-08-17: 3.3 06-08-17: 2.5 06-08-17: 3.0 RISK FACTORS: H&P: HX OF HTN, DIABETES UNCONTROLLED, HX OF PVD WITH TOE AMPUTATIONS TREATMENTS: (MAR) KEFLEX, VANCOMYCIN, ZOSYN, IVF (This form is maintained as a part of the permanent medical record) 2014 [employer] All Rights Reserved APRIL [email or web address] Office: [phone] [facility]
[2017-06-11] MEDS ORDERED: Cephalexin 250 MG CAP PO SCH (17:00)
[2017-06-11 17:57] VITALS: BP 157/67
--- NOTE | 2017-06-12 01:46 | DIS ---
DATE OF ADMISSION: 06/08/2017 DATE OF DISCHARGE: 06/11/2017 DISCHARGE DISPOSITION: To home. PRIMARY DISCHARGE DIAGNOSES: Status post left orchiectomy for mass/epididymal abscess. SECONDARY DISCHARGE DIAGNOSES: Diabetes mellitus type 2, hypertension, dyslipidemia. PROCEDURES DONE DURING HOSPITALIZATION: The patient has had testicular ultrasound done on the day of admission which showed complex left-sided scrotal mass, which may either be due to abscess or malign maribel. He has had scrotal exploration with left orchiectomy done by Dr. Kamara on 06/09/2017. Discha rge H and H 11 and 34, platelet count 423. Discharge BUN and creatinine is 13 and 0.9. Blood cultur es x2, no growth. Scrotal abscess culture grew Strep agalactiae group B. INPATIENT CONSULTS: Dr. Kamara for Urology. DISCHARGE PLAN: Patient to follow up with Dr. Kamara as advised and primary care physician in 1 week . BRIEF COURSE DURING HOSPITALIZATION: Patient initially came to ER with complaints of pain and swelli ng in his left scrotal area. He had ultrasound done, which was suspicious for a mass versus abscess in the scrotum on the left side. He has had consultation with Dr. Kamara for Urology. He has subseq uently had left orchiectomy with scrotal exploration done. He has had a left epididymal abscess, whi ch was drained as well. Histopathology is pending at present. His cultures grew Strep agalactiae fr om the scrotum. He has been placed on Keflex for another 5 days per urology advice. He needs to fol low up with Dr. Kamara as advised. Patient has indwelling drain in the scrotal area, which will be p ulled out in the followup appointment in the next [address] Kamara's office. He needs to follow up with his primary care physician in 1 week. Please see a [id number] documentation on [employer] fo r the day of discharge.
[2017-06-12] MEDS ORDERED: Saccharomyces boulardii 250 MG CAP PO SCH (09:00)
== END 2017-06-11 19:11 | disposition home or self-care (01) | DRG 712 ==
LOC: ERS 13:22 → T4-A 16:20
PROVIDERS: ADMIT Internal Medicine; ATTEND Internal Medicine
PROC: 0VTB0ZZ Resection of Left Testis, Open Approach (ICD-10-PCS; principal; 2017-06-09)
PROC: 0V9 Male Reproductive System, Drainage (ICD-10-PCS; 2017-06-09)
DX: N45.4 Abscess of epididymis or testis (principal); E11.51 Type 2 diabetes mellitus with diabetic peripheral angiopathy without gangrene; E11.65 Type 2 diabetes mellitus with hyperglycemia; N50.9 Disorder of male genital organs, unspecified; Z79.4 Long term (current) use of insulin; I10 Essential (primary) hypertension; E78.5 Hyperlipidemia, unspecified; Z89.422 Acquired absence of other left toe(s); Z95.810 Presence of automatic (implantable) cardiac defibrillator
CPT/HCPCS: 36415; 36416; 76870; 80048; 80053; 80202; 81003; 83605; 85025; 87040; 87070; 87077; 87205; 88305; 90471; 90682; 93976; 96361; 96365; 96375; A4216; G0008; J0696; J1100; J1815; J2001; J2405; J2543; J2704; J3010; J3370; J3490; J7050; Q2036

== ENCOUNTER 2017-10-27 17:31 | Inpatient (IN) | payer MEDICARE, BC ==
[~2017-10-27 17:31] MED LIST: Dexamethasone 20 MG/5 ML VIAL ONE; Lidocaine 1% PF 5 ML VIAL ONE; Ondansetron HCl/PF 4 MG/2 ML Vial ONE; PHENYLEPHRINE-NS 100 MCG/ML 10 ML SYRINGE ONE; PROPOFOL 200 MG/20 ML VIAL ONE
[2017-10-27] MEDS ORDERED: Fentanyl 100 MCG/2 ML VIAL ONE (20:20)
[2017-10-27] MEDS ORDERED: HYDROmorphone 0.5 MG/0.5 ML SYRINGE ONE (20:20)
[2017-10-27] MEDS ORDERED: Bupivacaine HCl 0.25%/Epi 0.0005/PF 10 ML VIAL FS ONE (20:30)
[2017-10-27] MEDS ORDERED: Piperacillin/Tazobactam 3.375 GM VIAL ONE (21:10)
[2017-10-27] MEDS ORDERED: Ondansetron HCl/PF 4 MG/2 ML Vial IVP PRN ×2 (21:23→21:28)
[2017-10-27] MEDS ORDERED: HYDROmorphone 2 MG/ML VIAL SLOW IVP PRN (21:23)
[2017-10-27] MEDS ORDERED: Promethazine HCl 25 MG/ML VIAL IM PRN ×2 (21:23→21:28)
[2017-10-27] MEDS ORDERED: Promethazine HCl 25 MG/ML VIAL SLOW IVP PRN (21:23)
[2017-10-27] MEDS ORDERED: Morphine Sulfate 2 MG/ML SYRINGE SLOW IVP PRN (21:23)
[2017-10-27] MEDS ORDERED: Dextrose 5% in Water 1,000 ML IV PRN (21:28)
[2017-10-27] MEDS ORDERED: hydrALAZINE 20 MG/ML VIAL SLOW IVP PRN (21:28)
[2017-10-27] MEDS ORDERED: Dextrose 50% Abboject 50 ML SYRINGE SLOW IVP PRN (21:28)
[2017-10-27] MEDS ORDERED: Insulin Regular 300 UNITS/3 ML VIAL SC PRN (21:28)
[2017-10-27] MEDS ORDERED: HYDROcodone/Acetaminophen 10/325 mg Tablet PO PRN ×2 (21:28)
[2017-10-27] MEDS ORDERED: SUGAMMADEX SODIUM 500 MG/5 ML VIAL ONE (21:28)
[2017-10-27] MEDS: Sodium Chloride 0.9% 1,000 ML IV SCH (23:33)
[2017-10-27 23:53] VITALS: BMI 26.6
[2017-10-28] MEDS: Piperacillin/Tazobactam 3.375 GM in Sodium Chloride 0.9% 100 ML IVPB SCH ×2 (02:51→09:14)
[2017-10-28 05:22] LABS: #Lymphocytes 0.6 thou/uL (1.20-3.40); #Monocytes 0.7 thou/uL (0.11-0.59); %Eosinophils 0.3 % (0.0-10.0); %Lymphocytes 4.1 % (21.0-51.0); %Neutrophils 90.6 % (42.0-75.0); Hemoglobin 12.2 g/dL (14.0-18.0); Mean Corpuscular HGB CONC 33.2 g/dL (32.0-36.0); Mean Corpuscular Hemoglobin 29.1 pg (27.0-31.0); Mean Corpuscular Volume 87.7 fL (78.0-98.0); Mean Platelet Volume 6.4 fL (7.4-10.4); Platelet Count 295 thou/uL (130-400); RBC Distribution Width 12.7 % (11.5-14.5); Red Blood Cell (RBC) Count 4.19 mill/uL (4.70-6.10); White Blood Cell (WBC) Count 14.3 thou/uL (4.8-10.8)
[2017-10-28 05:32] LABS: Anion Gap 14 mmol/L (10-20); BUN (Urea Nitrogen) 21 mg/dL (8.4-25.7); Calc. Creatinine Clearance 83 mL/min (70-130); Calcium 8.9 mg/dL (7.8-10.44); Carbon Dioxide 22 mmol/L (23-31); Chloride 103 mmol/L (98-107); Estimated GFR-MDRD 85; Glucose 201 mg/dL (83-110); Potassium 4.5 mmol/L (3.5-5.1); Sodium 134 mmol/L (136-145)
[2017-10-28] MEDS ORDERED: Sacubitril 24.5 MG/Valsartan 25.5 MG TABLET PO SCH (09:00)
[2017-10-28] MEDS ORDERED: Prevnar 13-Val Conj/PF 0.5 ML SYRINGE IM ONE (09:00)
[2017-10-28] MEDS ORDERED: Finasteride 5 MG TAB PO SCH (09:00)
[2017-10-28] MEDS ORDERED: Tamsulosin HCl 0.4 MG CAP PO SCH (09:00)
[2017-10-28] MEDS ORDERED: Famotidine 20 MG TAB PO SCH (09:00)
[2017-10-28] MEDS ORDERED: Enoxaparin Sodium 40 MG/0.4 ML SYRINGE SC SCH (09:00)
[2017-10-28] MEDS ORDERED: Famotidine/PF 20 mg/2ml Vial SLOW IVP SCH (09:00)
--- NOTE | 2017-10-28 09:02 | OP ---
PREOPERATIVE DIAGNOSIS: Left inguinal abscess. SURGEON: Zhen Reyes MD PROCEDURE PERFORMED: Incision and drainage of abscess. INDICATIONS: A 77-year-old male who had a recent orchiectomy a few months ago on the left side for n ecrosis, developed painful swelling in the left groin, had a CT scan suggestive of an inflammatory ma ss with fluid. Ultrasound confirmed about a 3.5-cm abscess in the inguinal canal. FINDINGS: A 4-cm abscess containing creamy white pus in the inguinal canal. PROCEDURE IN DETAIL: After informed consent was obtained, the patient was taken to the operating gracie m and given general endotracheal anesthesia, placed in supine position. His left groin was prepped a nd draped in usual fashion. Local anesthesia infiltrated subcutaneously and deep. An elliptical inc ision was performed. Subcu divided sharply. The abscess with subfascial in the inguinal canal. It was opened up, it is containing creamy white purulent fluid, it was cultured x2. This purulent fluid was removed. The wound was thoroughly irrigated with saline, packed open with Betadine gauze. Ster ile bandage applied. The patient tolerated the procedure well and was transferred to recovery in goo d condition. Sponge and needle count verified correct x2.
--- NOTE | 2017-10-28 09:02 | HP ---
CHIEF COMPLAINT: Painful left groin mass. HISTORY OF PRESENT ILLNESS: The patient is a 77-year-old male with a 3-day history of left groin bereket n became much worse yesterday went to the hospital at [facility], where he was admitted . First of all, a CT scan was performed that showed an inflammatory mass in his left groin. There w as not a hernia there. They did an ultrasound confirmed, it was a 3.5 cm abscess. He was having fev ers of 101.5. No drainage just pain and erythema and swelling. He is a diabetic on insulin. He say s no change in his bowel habits. He recently had a left orchiectomy in May for necrosis. PAST MEDICAL HISTORY: Significant for diabetes mellitus. He has a prostate. He has benign prostati c hypertrophy. He has pacemaker defibrillator. He has peripheral vascular disease as well as caroti d artery disease. PAST SURGICAL HISTORY: He has had 2 toes amputated on the left. He has had his left testicle amputa shaye. He has had a left carotid endarterectomy as well as the pacemaker defibrillator. MEDICATIONS: Include metformin, aspirin, Aldactone, metoprolol, , memantine, tamsulosin, finast eride, Levemir. ALLERGIES: No known drug allergies. SOCIAL HISTORY: He is , retired. No tobacco or alcohol. He has no known drug allergies. FAMILY HISTORY: Noncontributory. PHYSICAL EXAMINATION: VITAL SIGNS: Temperature is 99, pulse 84, blood pressure 134/90. GENERAL: He is a well-developed, well-nourished male in no apparent distress. HEENT: Unremarkable. LUNGS: Clear. HEART: Regular rate and rhythm. ABDOMEN: Soft. He has a tender red bulge in the left groin that would normally feel like an inguina l hernia that is incarcerated. He has had toe amputations. He had ultrasounds showing 3.3 cm absces s as well as CT scan. LABORATORY AND X-RAY FINDINGS: His white count 14.8, H&H 12 and 37, platelet count 292. Electrolyte s show an elevated glucose of 191. His creatinine is 0.9. ASSESSMENT: Left inguinal abscess. PLAN: Incision and drainage in the OR. CONSENT: I have discussed the planned procedure as well as risk of bleeding, infection. He and understand, given informed consent.
[2017-10-28] MEDS: Sodium Chloride 0.9% 1,000 ML IV SCH (09:12)
[2017-10-28 12:05] VITALS: BP 133/68; TEMP 97.8
--- NOTE | 2017-10-28 15:48 | DIS ---
DISCHARGE DIAGNOSIS: Left inguinal abscess. PROCEDURES DURING ADMISSION: Incision and drainage. HOSPITAL COURSE: The patient was admitted, taken to the operating room where he underwent incision a nd drainage and debridement of this abscess. It was a creamy purulence consistent with Staph aureus. He feels great now. Pain is minimal. He is afebrile. Vital signs are fine. 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 So, the plan is to teach her dressing, wound care, at least daily damp to dry. Follow up with me in 1-2 weeks. He will be discharged on hydroco done and doxycycline.
[2017-10-28] MEDS ORDERED: Atorvastatin Calcium 10 MG TAB PO SCH (21:00)
== END 2017-10-28 12:15 | disposition home or self-care (01) | DRG 581 ==
LOC: ERHOLD 17:31 → SURG A 19:44
PROVIDERS: ADMIT Surgery; ATTEND Surgery
PROC: 0J9C0ZZ Drainage of Pelvic Region Subcutaneous Tissue and Fascia, Open Approach (ICD-10-PCS; principal; 2017-10-27)
DX: L02.214 Cutaneous abscess of groin (principal); Z79.4 Long term (current) use of insulin; N40.0 Benign prostatic hyperplasia without lower urinary tract symptoms; Z95.810 Presence of automatic (implantable) cardiac defibrillator; E11.51 Type 2 diabetes mellitus with diabetic peripheral angiopathy without gangrene; Z89.422 Acquired absence of other left toe(s); Z90.79 Acquired absence of other genital organ(s)
CPT/HCPCS: 36415; 80048; 85025; 87070; 87076; 87077; 87205; J1100; J1170; J1650; J2001; J2405; J2543; J2704; J3010; J7050

== ENCOUNTER 2018-01-04 20:41 | Inpatient (IN) | payer MEDICARE, BC ==
[2018-01-04 21:15] LABS: #Lymphocytes 0.6 thou/uL (1.20-3.40); #Monocytes 0.8 thou/uL (0.11-0.59); #Neutrophils 7.2 thou/uL (1.40-6.50); %Basophils 0.2 % (0.0-1.0); %Eosinophils 0.1 % (0.0-10.0); %Lymphocytes 7.1 % (21.0-51.0); %Monocytes 9.4 % (0.0-10.0); %Neutrophils 83.3 % (42.0-75.0); Hemoglobin 12.8 g/dL (14.0-18.0); Mean Corpuscular HGB CONC 32.4 g/dL (32.0-36.0); Mean Corpuscular Hemoglobin 28.4 pg (27.0-31.0); Mean Corpuscular Volume 87.8 fL (78.0-98.0); Mean Platelet Volume 6.8 fL (7.4-10.4); Platelet Count 374 thou/uL (130-400); RBC Distribution Width 13.8 % (11.5-14.5); White Blood Cell (WBC) Count 8.7 thou/uL (4.8-10.8)
--- NOTE | 2018-01-04 21:41 | RAD ---
CHEST ONE VIEW: 01/04/18 HISTORY: Fever. Groin abscess. Vomiting. Worsening infection. COMPARISON: 04/20/15 FINDINGS: Portable upright chest demonstrates a single lead left sided defibrillator with lead position over th e right ventricle. Normal cardiac silhouette. The lungs and pleural spaces are clear. No pneumothorax or osseous abnormalities. IMPRESSION: No acute cardiopulmonary process. POS: PPP
[2018-01-04 21:51] LABS: Albumin 3.5 g/dL (3.4-4.8)
[2018-01-04 21:52] LABS: Chloride 106 mmol/L (98-107); Sodium 136 mmol/L (136-145)
[2018-01-04 21:53] LABS: Globulin 4.2 g/dL (2.4-3.5); Glucose 133 mg/dL (83-110); Protein, Total 7.7 g/dL (5.8-8.1)
[2018-01-04 21:54] LABS: Anion Gap 18 mmol/L (10-20); Carbon Dioxide 18 mmol/L (23-31)
[2018-01-04 21:55] LABS: Bilirubin, Total 0.9 mg/dL (0.2-1.2)
[2018-01-04 21:56] LABS: Alkaline Phosphatase 83 U/L (40-150)
[2018-01-04 21:57] LABS: BUN (Urea Nitrogen) 30 mg/dL (8.4-25.7); Calc. Creatinine Clearance 0 mL/min (70-130); Estimated GFR-MDRD 50
[2018-01-04 21:58] LABS: AST (SGOT) 29 U/L (5-34)
[2018-01-04 21:59] LABS: ALT (SGPT) 11 U/L (8-55); Lipase 36 U/L (8-78)
[2018-01-04 22:30] LABS: Bilirubin Negative (Negative); Blood, Urine Small (Negative); Clarity CLOUDY (Clear); Glucose, Urine (Dipstick) 250 mg/dL (Negative); Leukocyte Large (Negative); Nitrite Negative (Negative); Protein, Urine (Dipstick) 30 mg/dL (Neg-Trace); Specific Gravity, Urine 1.018 (1.002-1.036); Urobilinogen 0.2 mg/dL (0.2-1.0)
[2018-01-04 22:31] LABS: Bacteria/HPF None Seen HPF (None Seen); Hyaline Casts/LPF 0-3 HYALINE CAST LPF (0-3 Hyaline); Squamous Epithelial None Seen HPF (0-3)
[2018-01-04 22:32] LABS: Yeast-AUWi Flag 174.7 (0-25.0)
[2018-01-04 22:40] LABS: Yeast-All Forms 2+ HPF (None Seen)
[2018-01-04] MEDS ORDERED: Sodium Chloride 0.9% 100 ML ONE (23:14)
[2018-01-04] MEDS ORDERED: cefTRIAXone\\ROCEPHIN 2 GM VIAL ONE (23:14)
[2018-01-04 23:38] LABS: Anion Gap 16 mmol/L (10-20); BUN (Urea Nitrogen) 27 mg/dL (8.4-25.7); Calc. Creatinine Clearance 0 mL/min (70-130); Calcium 8.8 mg/dL (7.8-10.44); Carbon Dioxide 18 mmol/L (23-31); Chloride 109 mmol/L (98-107); Estimated GFR-MDRD 62; Glucose 112 mg/dL (83-110); Potassium 4.5 mmol/L (3.5-5.1); Sodium 138 mmol/L (136-145)
[2018-01-05 00:53] VITALS: BMI 25.7
[2018-01-05 01:13] LABS: Lactic Acid 1.2 mmol/L (0.5-2.2)
[2018-01-05] MEDS ORDERED: Sodium Chloride 0.9% 1,000 ML IV SCH (03:30)
[2018-01-05] MEDS ORDERED: Acetaminophen 325 MG TAB PO PRN (04:38)
[2018-01-05] MEDS ORDERED: Ondansetron HCl/PF 4 MG/2 ML Vial IVP PRN (04:38)
[2018-01-05] MEDS ORDERED: Dextrose 5% in Water 1,000 ML IV PRN (04:40)
[2018-01-05] MEDS ORDERED: Dextrose 50% Abboject 50 ML SYRINGE SLOW IVP PRN (04:40)
[2018-01-05] MEDS ORDERED: HumaLOG 300 UNITS/3 ML VIAL SC PRN ×3 (04:40→08:53)
[2018-01-05] MEDS ORDERED: Spironolactone 25 MG TAB PO SCH (08:00)
[2018-01-05] MEDS: Metoprolol Tartrate 50 MG TAB PO SCH ×2 (08:35→20:28)
[2018-01-05] MEDS: Sacubitril 24.5 MG/Valsartan 25.5 MG TABLET PO SCH ×2 (08:35→20:28)
[2018-01-05] MEDS: Finasteride 5 MG TAB PO SCH (08:36)
[2018-01-05] MEDS: Aspirin 325 MG TAB PO SCH (08:36)
[2018-01-05] MEDS: Tamsulosin HCl 0.4 MG CAP PO SCH (08:36)
[2018-01-05] MEDS: Atorvastatin Calcium 20 MG TAB PO SCH (08:36)
[2018-01-05] MEDS ORDERED: Chloraseptic Spray 180 ml Bottle PO PRN (08:53)
[2018-01-05] MEDS ORDERED: Diabetic Tussin 200 MG/10 ML UDCUP PO PRN (08:53)
[2018-01-05] MEDS ORDERED: Milk Of Magnesia 30 ML UDCUP PO PRN (08:53)
[2018-01-05] MEDS ORDERED: Loratadine 10 MG TAB PO PRN (08:53)
[2018-01-05] MEDS ORDERED: HYDROcodone/Acetaminophen 5/325 mg Tablet PO PRN (08:53)
[2018-01-05] MEDS ORDERED: Sodium Chloride 0.65% Nasal 44 ML BOT EA NARE PRN (08:53)
[2018-01-05] MEDS ORDERED: Senokot 8.6 MG TAB PO PRN (08:53)
[2018-01-05] MEDS ORDERED: Mag-Al 1200 mg/1200 mg/30 ML UDCUP PO PRN (08:53)
[2018-01-05] MEDS ORDERED: Loperamide HCl 2 MG CAP PO PRN (08:53)
[2018-01-05] MEDS ORDERED: hydrALAZINE 20 MG/ML VIAL SLOW IVP PRN (08:53)
[2018-01-05] MEDS ORDERED: Artificial Tears 18 DROP/0.9 ML EA EYE PRN (08:53)
[2018-01-05] MEDS ORDERED: Ondansetron ODT 4 MG TAB PO PRN (08:53)
[2018-01-05] MEDS ORDERED: Eucerin (Mineral Oil/Petrolatum,White) 30 gm Jar TOP PRN (08:53)
[2018-01-05] MEDS ORDERED: Temazepam 15 MG CAP PO PRN (08:53)
[2018-01-05] MEDS ORDERED: Insulin Glargine 45 UNITS in Pre-Filled Syringe 1 EACH SC SCH (09:00)
[2018-01-05] MEDS ORDERED: LEVEMIR SC SCH (09:00)
[2018-01-05] MEDS ORDERED: VANCOMYCIN IVPB PRN (09:41)
--- NOTE | 2018-01-05 10:08 | HP ---
PRIMARY CARE PHYSICIAN: Unknown. REASON FOR ADMISSION: Acute kidney failure, hyperkalemia, sepsis, urinary tract infection. HISTORY OF PRESENT ILLNESS: A 77-year-old male who has underlying history of coronary artery disease , chronic systolic and diastolic heart failure as well as history of hypertension and diabetes, who w as brought to emergency room last night with a complaint of generalized weakness. He was having feve r and chills. He was having difficulty controlling urination. He was having increased frequency of urination. He was feeling weak and wobbly and that is why he was brought to the emergency room for e valuation. The patient is not able to provide more history, because of his underlying dementia. In the emergency room, this patient was found with urinary tract infection. His routine blood test a lso showed hyperkalemia, acute kidney failure, and lactic acidosis. He was admitted to telemetry reba or. In the emergency room, the patient was given vancomycin and Rocephin as well as IV fluid. REVIEW OF SYSTEMS: The following complete review of systems was negative, unless otherwise mentioned in the HPI or below: Constitutional: Weight loss or gain, ability to conduct usual activities. Skin: Rash, itching. Eyes: Double vision, pain. ENT/Mouth: Nose bleeding, neck stiffness, pain, tenderness. Cardiovascular: Palpitations, dyspnea on exertion, orthopnea. Respiratory: Shortness of breath, wheezing, cough, hemoptysis, fever or night sweats. Gastrointestinal: Poor appetite, abdominal pain, heartburn, nausea, vomiting, constipation, or diarr hea. Genitourinary: Urgency, frequency, dysuria, nocturia. Musculoskeletal: Pain, swelling. Neurologic/Psychiatric: Anxiety, depression. Allergy/Immunologic: Skin rash, bleeding tendency. All other review of system reviewed and negative except as mentioned in the HPI. Above-mentioned review of systems is also not reliable, because of patient's cognitive status. PAST MEDICAL HISTORY: Severe 2-vessel coronary artery disease, history of chronic systolic and diast olic heart failure with AICD/pacemaker, history of NH, benign enlargement of prostate, hypertension, dyslipidemia, senile/Alzheimer's dementia, diabetes type 2, peripheral vascular disease. PAST SURGICAL HISTORY: Left orchiectomy and scrotal exploration by Dr. Kamara, amputation of left fi rst and second toe of the foot, left carotid endarterectomy by Dr. Gerry Zhang, incision and draina ge for left inguinal abscess, skin grafting in the right hand. PAST PSYCHIATRIC HISTORY: Reviewed and negative. SOCIAL HISTORY: Patient is , lives with his . No history of tobacco, alcohol or illicit drug abuse. FAMILY HISTORY: Father had heart attack and lymphoma to his mother. ALLERGIES: No known drug allergy. CURRENT HOME MEDICATIONS: Aspirin 325 mg p.o. daily, Lipitor 20 mg p.o. daily, finasteride 5 mg p.o. daily, Levemir 45 units subcu in the morning, Namenda 10 mg p.o. b.i.d., metformin 1000 mg p.o. b.i. d., metoprolol 75 mg p.o. b.i.d., mirabegron 25 mg p.o. daily, Entresto one tablet p.o. b.i.d., Aldac tone 12.5 mg daily, Flomax 0.4 mg p.o. daily. EMERGENCY ROOM COURSE: Patient is given Rocephin and IV fluid. PHYSICAL EXAMINATION: VITAL SIGNS: On arrival to the emergency room, temperature 98.8, pulse 178, respiratory rate 22, sat uration 99% on room air, blood pressure 150/60. Weight 79.8 kilograms. GENERAL: The patient is currently confused, awake, arousable, follows simple command, mildly disorie nted. HEENT: Head: Normocephalic, atraumatic. Eyes: Pupils round, reactive to light. Extraocular muscl e intact. ENT: Oropharynx within normal limits. Dry mucous membrane, no oral lesion, no pharyngeal erythema, no exudate. NECK: Supple, no JVD, no thyromegaly, no carotid bruit. LUNGS: Clear to auscultation without any rhonchi or rales. CARDIAC: S1, S2 appears regular. Systolic murmur noted at left parasternal, as well as aortic area. No gallop, no rub. ABDOMEN: Soft, bowel sounds present, nontender, nondistended. No organomegaly, no mass. GENITOURINARY: Left testicle is removed. Left groin has a 2 mm wound. BACK: Unremarkable, no CVA tenderness. EXTREMITIES: Upper extremity, passive movement of all joints are normal. Lower extremity, no edema. Good distal pulsation. SKIN: No skin rash. HEMATOLOGICAL: No lymphadenopathy. PSYCHIATRIC: Normal affect. IMAGING: EKG showing fusion complex, normal sinus rhythm. Chest x-ray based on my review, no acute cardiopulmonary process. SIGNIFICANT LABORATORY DATA: WBC 8.7, hemoglobin 12.8, platelets 374. BMP: Sodium 136, potassium 6 .0, chloride 106, carbon dioxide 18, BUN 30, creatinine 1.38, glucose 133, calcium 9.0. LFT: AST 29 , ALT 11, alkaline phosphatase 83, albumin 3.5, lipase 36. Lactic acid 2.5. Urinalysis suggestive o f UTI. Influenza screen negative. Blood culture is negative so far. ASSESSMENT AND PLAN: 1. Acute on chronic encephalopathy. The patient is more altered from his baseline status without an y neurological deficit, most likely related with underlying urinary tract infection and sepsis. 2. Sepsis with acute organ dysfunction with patient has acute kidney failure, encephalopathy with th e source of urinary tract infection and possibility of soft tissue infection in the groin. 3. Acute kidney failure. Patient's renal function improved with IV fluid. Given patient has cardio myopathy, we will stop IV fluid today. 4. Lactic acidosis, likely due to sepsis. Repeat lactic acid level is normal after IV fluid. 5. Hyperkalemia, likely related with renal failure, metabolic acidosis as well as Aldactone therapy. Aldactone therapy is holded at this point and potassium is already improved. 6. Urinary tract infection. The patient was given Rocephin, vancomycin in the emergency room. We w ill continue with Rocephin 1 gram q.24 hours. 7. Groin abscess. Patient recently required drainage, but at this point, Wound care team will be co nsulted and we will continue with vancomycin for Staph coverage. 8. Alzheimer/senile dementia. We will continue Namenda 10 mg twice daily. 9. Dyslipidemia. Continue Lipitor 20 mg p.o. daily. 10. Benign enlargement of prostate. Continue Proscar 5 mg p.o. daily and Flomax 0.4 mg p.o. daily. 11. Chronic systolic and diastolic heart failure, currently euvolemic. Continue Entresto 1 tablet p .o. b.i.d. We are holding Aldactone, because of hyperkalemia. 12. Diabetes type 2. We will continue insulin as per sliding scale protocol and depending upon bloo d sugar, we will restart Levemir insulin. 13. Deep venous thrombosis prophylaxis. Lovenox 40 mg subcu daily. 14. Gastrointestinal prophylaxis. Pepcid 20 mg p.o. daily. CODE STATUS: The patient is FULL CODE. The patient's is surrogate decision maker. Disposition plan based on clinical course. We are expecting patient's stay in hospital more than 2 m idnights. Plan of care discussed with the patient in detail.
[2018-01-05] MEDS ORDERED: Vancomycin HCl 1 GM in Premix Bag 1 BAG IVPB SCH (11:00)
[2018-01-05] MEDS: Vancomycin HCl 1 GM in Premix Bag 1 BAG IVPB SCH ×2 (11:28→23:38)
[2018-01-05] MEDS: Famotidine 20 MG TAB PO SCH (11:28)
[2018-01-05] MEDS: Sodium Chloride 0.9% 1,000 ML IV SCH (15:34)
[2018-01-05] MEDS: cefTRIAXone\\ROCEPHIN 1 GM in Sodium Chloride 0.9% 100 ML IVPB SCH (22:02)
[2018-01-06] MEDS: Sodium Chloride 0.9% 1,000 ML IV SCH (03:36)
[2018-01-06 06:04] LABS: Anion Gap 12 mmol/L (10-20); BUN (Urea Nitrogen) 21 mg/dL (8.4-25.7); Calc. Creatinine Clearance 62 mL/min (70-130); Calcium 8.3 mg/dL (7.8-10.44); Carbon Dioxide 19 mmol/L (23-31); Chloride 107 mmol/L (98-107); Estimated GFR-MDRD 63; Glucose 232 mg/dL (83-110); Potassium 3.7 mmol/L (3.5-5.1); Sodium 134 mmol/L (136-145)
[2018-01-06 06:10] LABS: #Eosinphils 0.1 thou/uL (0.0-0.7); #Lymphocytes 1.3 thou/uL (1.20-3.40); #Monocytes 1.2 thou/uL (0.11-0.59); %Basophils 0.4 % (0.0-1.0); %Eosinophils 1.1 % (0.0-10.0); %Lymphocytes 13.4 % (21.0-51.0); %Monocytes 12.2 % (0.0-10.0); %Neutrophils 72.9 % (42.0-75.0); Hemoglobin 11.3 g/dL (14.0-18.0); Mean Corpuscular HGB CONC 32.2 g/dL (32.0-36.0); Mean Corpuscular Hemoglobin 28.3 pg (27.0-31.0); Mean Corpuscular Volume 87.8 fL (78.0-98.0); Mean Platelet Volume 6.9 fL (7.4-10.4); Platelet Count 279 thou/uL (130-400); RBC Distribution Width 13.5 % (11.5-14.5); Red Blood Cell (RBC) Count 3.99 mill/uL (4.70-6.10); White Blood Cell (WBC) Count 9.6 thou/uL (4.8-10.8)
[2018-01-06] MEDS ORDERED: Prevnar 13-Val Conj/PF 0.5 ML SYRINGE IM ONE (09:00)
[2018-01-06] MEDS: Famotidine 20 MG TAB PO SCH (09:05)
[2018-01-06] MEDS: Sacubitril 24.5 MG/Valsartan 25.5 MG TABLET PO SCH ×2 (09:06→21:29)
[2018-01-06] MEDS: Aspirin 325 MG TAB PO SCH (09:08)
[2018-01-06] MEDS: Tamsulosin HCl 0.4 MG CAP PO SCH (09:09)
[2018-01-06] MEDS: Metoprolol Tartrate 50 MG TAB PO SCH ×2 (09:09→21:29)
[2018-01-06] MEDS: Atorvastatin Calcium 20 MG TAB PO SCH (09:14)
[2018-01-06] MEDS: Finasteride 5 MG TAB PO SCH (09:14)
[2018-01-06] MEDS: Enoxaparin Sodium 40 MG/0.4 ML SYRINGE SC SCH (09:15)
[2018-01-06] MEDS ORDERED: metFORMIN 500 MG TAB PO SCH (10:45)
--- NOTE | 2018-01-06 11:02 | PDOC.PN ---
- Subjective Encounter Start Date: 01/06/18 Encounter Start Time: 08:00 Patient seen and examined. No new complaints. No overnight events - Objective Resuscitation Status: Resuscitation Status FULL:Full Resuscitation MAR Reviewed: Yes Vital Signs & Weight: Vital Signs (12 hours) Temp Pulse Resp BP Pulse Ox 01/06/18 07:54 98.5 F 80 17 112/61 96 01/06/18 03:41 99.2 F 80 17 109/58 L 98 01/05/18 23:57 99.4 F 78 16 123/57 L 99 Weight Admit Weight 174 lb 4.8 oz Weight 174 lb I&O: 01/05/18 01/06/18 01/07/18 06:59 06:59 06:59 Intake Total 210 3574 Output Total 400 1122 Balance -190 2452 Result Diagrams: 01/06/18 05:01 01/06/18 05:01 Additional Labs: Accuchecks 01/06/18 01/05/18 01/05/18 05:37 20:41 17:13 POC Glucose 225 H 214 H 237 H 01/05/18 10:59 POC Glucose 104 EKG Reviewed by me: Yes (nsr) Phys Exam - Physical Examination Constitutional: NAD HEENT: PERRLA, moist MMs, sclera anicteric, TM's clear Neck: no JVD, supple Respiratory: no wheezing, no rales, no rhonchi Cardiovascular: RRR, no significant murmur, no rub Gastrointestinal: soft, non-tender, no distention, positive bowel sounds Musculoskeletal: no edema, pulses present Neurological: non-focal, normal sensation, moves all 4 limbs Lymphatic: no nodes Psychiatric: normal affect, A&O x 3 Skin: no rash, normal turgor Dx/Plan (1) UTI (urinary tract infection) Status: Acute (2) Acute kidney failure Status: Resolved (3) Encephalopathy acute Code(s): G93.40 - ENCEPHALOPATHY, UNSPECIFIED Status: Resolved (4) Hyperkalemia Code(s): E87.5 - HYPERKALEMIA Status: Resolved (5) Lactic acidosis Code(s): E87.2 - ACIDOSIS Status: Resolved (6) Sepsis with acute organ dysfunction Code(s): A41.9 - SEPSIS, UNSPECIFIED ORGANISM; R65.20 - SEVERE SEPSIS WITHOUT SEPTIC SHOCK Status: Acute (7) Chronic combined systolic and diastolic congestive heart failure Code(s): I50.42 - CHRONIC COMBINED SYSTOLIC AND DIASTOLIC HRT FAIL Status: Chronic (8) DM type 2 (diabetes mellitus, type 2) Status: Chronic Qualifiers: (9) Dementia Code(s): F03.90 - UNSPECIFIED DEMENTIA WITHOUT BEHAVIORAL DISTURBANCE Status: Chronic (10) Dyslipidemia Code(s): E78.5 - HYPERLIPIDEMIA, UNSPECIFIED Status: Chronic (11) HTN (hypertension) Code(s): I10 - ESSENTIAL (PRIMARY) HYPERTENSION Status: Chronic Qualifiers: - Plan cont current plan of care, continue antibiotics, PT/OT * will get echo * continue PT * continue rocephin * DC IVF * repeat labs tomorrow * follow culture * medication reviewed as below * symptomatic treatment. * dc vancomycin * add diflucan for yeast in urine Review of Systems - Review of Systems ENT: negative: Ear Pain, Ear Discharge, Nose Pain, Nose Discharge, Nose Congestion, Mouth Pain, Mouth Swelling, Throat Pain, Throat Swelling, Other Respiratory: negative: Cough, Dry, Shortness of Breath, Hemoptysis, SOB with Excertion, Pleuritic Pain, Sputum, Wheezing Cardiovascular: negative: chest pain, palpitations, orthopnea, paroxysmal nocturnal dyspnea, edema, light headedness, other Gastrointestinal: negative: Nausea, Vomiting, Abdominal Pain, Diarrhea, Constipation, Melena, Hematochezia, Other Genitourinary: negative: Dysuria, Frequency, Incontinence, Hematuria, Retention , Other Musculoskeletal: negative: Neck Pain, Shoulder Pain, Arm Pain, Back Pain, Hand Pain, Leg Pain, Foot Pain, Other Skin: negative: Rash, Lesions, Chad, Bruising, Other - Medications/Allergies Allergies/Adverse Reactions: Allergies Allergy/AdvReac Type Severity Reaction Status Date / Time No Known Drug Allergies Allergy Verified 06/08/17 19:00 Medications: Current Medications Acetaminophen (Tylenol) 650 mg PO Q4H PRN PRN Reason: Headache/Fever or Pain Hydrocodone Bitart/Acetaminophen ([place] 5/325) 1 tab PO Q4H PRN PRN Reason: Moderate Pain (4-6) Al Hydroxide/Mg Hydroxide (Maalox) 15 ml PO Q4H PRN PRN Reason: Heartburn or Indigestion Artificial Tears (Tears Naturale) 0 drop EA EYE PRN PRN PRN Reason: Dry Eyes Aspirin (Aspirin) 325 mg PO DAILY [facility] Last Admin: 01/06/18 09:08 Dose: 325 mg Atorvastatin Calcium (Lipitor) 20 mg PO DAILY [facility] Last Admin: 01/06/18 09:14 Dose: 20 mg Dextrose/Water (Dextrose 50%) 25 gm SLOW IVP PRN PRN PRN Reason: Hypoglycemia Enoxaparin Sodium (Lovenox) 40 mg SC 0900 [facility] Last Admin: 01/06/18 09:15 Dose: 40 mg Famotidine (Pepcid) 20 mg PO DAILY [facility] Last Admin: 01/06/18 09:05 Dose: 20 mg Finasteride (Proscar) 5 mg PO DAILY [facility] Last Admin: 01/06/18 09:14 Dose: 5 mg Glucagon (Glucagon) 1 mg IM PRN PRN PRN Reason: Hypoglycemia Guaifenesin (Robitussin Sf) 200 mg PO Q4H PRN PRN Reason: Cough Hydralazine HCl (Apresoline) 10 mg SLOW IVP Q4H PRN PRN Reason: Systolic BP > 180 Dextrose/Water (D5w) 1,000 mls @ 0 mls/hr IV .Q0M PRN PRN Reason: Hypoglycemia Ceftriaxone Sodium 1 gm/ (Sodium Chloride) 100 mls @ 200 mls/hr IVPB 2300 [facility] Last Admin: 01/05/18 22:02 Dose: 100 mls Vancomycin HCl 1 gm/ Device 200 mls @ 200 mls/hr IVPB 1100,2300 [facility] Last Admin: 01/05/18 23:38 Dose: 200 mls Sodium Chloride (Normal Saline 0.9%) 1,000 mls @ 100 mls/hr IV .Q10H [facility] Last Admin: 01/06/18 03:36 Dose: 1,000 mls Insulin Human Lispro (Humalog) 0 units SC .MODERATE SLIDING SC PRN PRN Reason: Moderate Correctional Scale Insulin Human Lispro (Humalog) 0 units SC .BEDTIME SLIDING SC PRN PRN Reason: Bedtime Correctional Scale Loperamide HCl (Imodium) 2 mg PO PRN PRN PRN Reason: Diarrhea/Loose Stools Loratadine (Claritin) 10 mg PO DAILYPRN PRN PRN Reason: Sinus Symptoms Magnesium Hydroxide (Milk Of Magnesium) 30 ml PO DAILYPRN PRN PRN Reason: Constipation Memantine (Namenda) 10 mg PO BID [facility] Last Admin: 01/06/18 09:08 Dose: 10 mg Metformin HCl (Glucophage) 1,000 mg PO BID-[facility] Metformin HCl (Glucophage) 1,000 mg PO 1045 [facility] Stop: 01/06/18 12:45 Metoprolol Tartrate (Lopressor) 75 mg PO BID [facility] Last Admin: 01/06/18 09:09 Dose: 75 mg Mineral Oil/White Petrolatum (Eucerin Cream) 0 gm TOP BIDPRN PRN PRN Reason: Dry Skin Mirabegron (Myrbetriq Er) 25 mg PO DAILY [facility] Last Admin: 01/06/18 09:07 Dose: 25 mg Miscellaneous Medication (Pharmacy To Dose) 1 each IVPB PRN PRN PRN Reason: Pharmacy to dose Ondansetron HCl (Zofran) 4 mg IVP Q6H PRN PRN Reason: Nausea/Vomiting Ondansetron HCl (Zofran Odt) 4 mg PO Q6H PRN PRN Reason: Nausea/Vomiting Last Admin: 01/05/18 11:28 Dose: 4 mg Phenol (Chloraseptic [place] 180 Ml Bot) 0 ml PO PRN PRN PRN Reason: Sore Throat Sacubitril/Valsartan (Entresto 24.5 Mg-25.5 Mg Tablet) 1 tab PO BID [facility] Last Admin: 01/06/18 09:06 Dose: 1 tab Senna (Senokot) 2 tab PO HSPRN PRN PRN Reason: Constipation Sodium Chloride (Flush - Normal Saline) 10 ml IVF Q12HR [facility] Last Admin: 01/06/18 09:17 Dose: Not Given Sodium Chloride (Flush - Normal Saline) 10 ml IVF PRN PRN PRN Reason: Saline Flush Sodium Chloride ([place] Nasal [place] 0.65%) 0 ml EA NARE QIDPRN PRN PRN Reason: Nasal Congestion Tamsulosin HCl (Flomax) 0.4 mg PO DAILY [facility] Last Admin: 01/06/18 09:09 Dose: 0.4 mg Temazepam (Restoril) 15 mg PO HSPRN PRN PRN Reason: Insomnia
[2018-01-06] MEDS ORDERED: Fluconazole 100 MG TAB PO SCH (11:15)
[2018-01-06] MEDS: Vancomycin HCl 1 GM in Premix Bag 1 BAG IVPB SCH (12:45)
[2018-01-06] MEDS: metFORMIN 500 MG TAB PO SCH (17:33)
[2018-01-06] MEDS: cefTRIAXone\\ROCEPHIN 1 GM in Sodium Chloride 0.9% 100 ML IVPB SCH (22:22)
[2018-01-07 05:13] LABS: #Basophils 0.1 thou/uL (0.0-0.2); #Eosinphils 0.4 thou/uL (0.0-0.7); #Lymphocytes 1.8 thou/uL (1.20-3.40); #Monocytes 1.2 thou/uL (0.11-0.59); #Neutrophils 6.2 thou/uL (1.40-6.50); %Basophils 0.7 % (0.0-1.0); %Eosinophils 3.9 % (0.0-10.0); %Lymphocytes 18.4 % (21.0-51.0); %Monocytes 12.8 % (0.0-10.0); %Neutrophils 64.1 % (42.0-75.0); Hemoglobin 10.9 g/dL (14.0-18.0); Mean Corpuscular HGB CONC 32.4 g/dL (32.0-36.0); Mean Corpuscular Hemoglobin 29.2 pg (27.0-31.0); Mean Platelet Volume 6.7 fL (7.4-10.4); Platelet Count 279 thou/uL (130-400); RBC Distribution Width 13.4 % (11.5-14.5); Red Blood Cell (RBC) Count 3.73 mill/uL (4.70-6.10); White Blood Cell (WBC) Count 9.6 thou/uL (4.8-10.8)
[2018-01-07 05:31] LABS: Anion Gap 12 mmol/L (10-20); BUN (Urea Nitrogen) 22 mg/dL (8.4-25.7); Calc. Creatinine Clearance 63 mL/min (70-130); Calcium 8.1 mg/dL (7.8-10.44); Carbon Dioxide 18 mmol/L (23-31); Chloride 109 mmol/L (98-107); Estimated GFR-MDRD 64; Glucose 154 mg/dL (83-110); Potassium 3.7 mmol/L (3.5-5.1); Sodium 135 mmol/L (136-145)
[2018-01-07] MEDS: Finasteride 5 MG TAB PO SCH (08:35)
[2018-01-07] MEDS: Fluconazole 100 MG TAB PO SCH (08:35)
[2018-01-07] MEDS: Enoxaparin Sodium 40 MG/0.4 ML SYRINGE SC SCH (08:35)
[2018-01-07] MEDS: Aspirin 325 MG TAB PO SCH (08:35)
[2018-01-07] MEDS: Metoprolol Tartrate 50 MG TAB PO SCH ×2 (08:35→20:32)
[2018-01-07] MEDS: Atorvastatin Calcium 20 MG TAB PO SCH (08:35)
[2018-01-07] MEDS: Tamsulosin HCl 0.4 MG CAP PO SCH (08:35)
[2018-01-07] MEDS: Famotidine 20 MG TAB PO SCH (08:36)
[2018-01-07] MEDS: metFORMIN 500 MG TAB PO SCH ×2 (08:36→16:12)
[2018-01-07] MEDS: Sacubitril 24.5 MG/Valsartan 25.5 MG TABLET PO SCH ×2 (09:11→21:13)
--- NOTE | 2018-01-07 10:49 | PDOC.PN ---
- Subjective Encounter Start Date: 01/07/18 Encounter Start Time: 09:00 Patient seen and examined. No new complaints. No overnight events - Objective Resuscitation Status: Resuscitation Status FULL:Full Resuscitation MAR Reviewed: Yes Vital Signs & Weight: Vital Signs (12 hours) Temp Pulse Resp BP BP Pulse Ox 01/07/18 07:41 98.2 F 92 18 113/57 L 97 01/07/18 03:51 98.9 F 71 16 113/56 L 98 01/06/18 23:56 98.5 F 86 15 97/56 L 97 Weight Admit Weight 174 lb 4.8 oz Weight 174 lb I&O: 01/06/18 01/07/18 01/08/18 06:59 06:59 06:59 Intake Total 3574 Output Total 1122 Balance 2452 Result Diagrams: 01/07/18 04:58 01/07/18 04:58 Additional Labs: Accuchecks 01/07/18 01/06/18 01/06/18 05:48 20:38 16:52 POC Glucose 140 H 182 H 181 H 01/06/18 11:00 POC Glucose 213 H EKG Reviewed by me: Yes (nsr) Phys Exam - Physical Examination Constitutional: NAD HEENT: PERRLA, moist MMs, sclera anicteric Neck: no JVD, supple Respiratory: no wheezing, no rales, no rhonchi Cardiovascular: RRR, no significant murmur, no rub Gastrointestinal: soft, non-tender, no distention, positive bowel sounds Musculoskeletal: no edema, pulses present groin wound is looked today Neurological: non-focal, normal sensation Psychiatric: normal affect, A&O x 3 Skin: no rash, normal turgor Dx/Plan (1) UTI (urinary tract infection) Status: Acute (2) Acute kidney failure Status: Resolved (3) Encephalopathy acute Code(s): G93.40 - ENCEPHALOPATHY, UNSPECIFIED Status: Resolved (4) Hyperkalemia Code(s): E87.5 - HYPERKALEMIA Status: Resolved (5) Lactic acidosis Code(s): E87.2 - ACIDOSIS Status: Resolved (6) Sepsis with acute organ dysfunction Code(s): A41.9 - SEPSIS, UNSPECIFIED ORGANISM; R65.20 - SEVERE SEPSIS WITHOUT SEPTIC SHOCK Status: Acute (7) Chronic combined systolic and diastolic congestive heart failure Code(s): I50.42 - CHRONIC COMBINED SYSTOLIC AND DIASTOLIC HRT FAIL Status: Chronic (8) DM type 2 (diabetes mellitus, type 2) Status: Chronic Qualifiers: (9) Dementia Code(s): F03.90 - UNSPECIFIED DEMENTIA WITHOUT BEHAVIORAL DISTURBANCE Status: Chronic (10) Dyslipidemia Code(s): E78.5 - HYPERLIPIDEMIA, UNSPECIFIED Status: Chronic (11) HTN (hypertension) Code(s): I10 - ESSENTIAL (PRIMARY) HYPERTENSION Status: Chronic Qualifiers: - Plan cont current plan of care, plan discussed w/ family, continue antibiotics * medication reviewed as below * symptomatic treatment * will need placement * continue current iv antibiotics for UTI, will add diflucan. Review of Systems - Review of Systems Constitutional: weakness. negative: fever, chills, sweats, malaise, other ENT: negative: Ear Pain, Ear Discharge, Nose Pain, Nose Discharge, Nose Congestion, Mouth Pain, Mouth Swelling, Throat Pain, Throat Swelling, Other Respiratory: negative: Cough, Dry, Shortness of Breath, Hemoptysis, SOB with Excertion, Pleuritic Pain, Sputum, Wheezing Cardiovascular: negative: chest pain, palpitations, orthopnea, paroxysmal nocturnal dyspnea, edema, light headedness, other Gastrointestinal: negative: Nausea, Vomiting, Abdominal Pain, Diarrhea, Constipation, Melena, Hematochezia, Other Genitourinary: negative: Dysuria, Frequency, Incontinence, Hematuria, Retention , Other Musculoskeletal: negative: Neck Pain, Shoulder Pain, Arm Pain, Back Pain, Hand Pain, Leg Pain, Foot Pain, Other Skin: negative: Rash, Lesions, Chad, Bruising, Other - Medications/Allergies Allergies/Adverse Reactions: Allergies Allergy/AdvReac Type Severity Reaction Status Date / Time No Known Drug Allergies Allergy Verified 06/08/17 19:00 Medications: Current Medications Acetaminophen (Tylenol) 650 mg PO Q4H PRN PRN Reason: Headache/Fever or Pain Hydrocodone Bitart/Acetaminophen ([place] 5/325) 1 tab PO Q4H PRN PRN Reason: Moderate Pain (4-6) Al Hydroxide/Mg Hydroxide (Maalox) 15 ml PO Q4H PRN PRN Reason: Heartburn or Indigestion Artificial Tears (Tears Naturale) 0 drop EA EYE PRN PRN PRN Reason: Dry Eyes Aspirin (Aspirin) 325 mg PO DAILY [facility] Last Admin: 01/07/18 08:35 Dose: 325 mg Atorvastatin Calcium (Lipitor) 20 mg PO DAILY [facility]S [facility] Last Admin: 01/07/18 08:35 Dose: 20 mg Dextrose/Water (Dextrose 50%) 25 gm SLOW IVP PRN PRN PRN Reason: Hypoglycemia Enoxaparin Sodium (Lovenox) 40 mg SC 0900 [facility] 234 [facility]S [facility] Last Admin: 01/07/18 08:35 Dose: 40 mg Famotidine (Pepcid) 20 mg PO DAILY [facility] 234 B[facility]S [facility] Last Admin: 01/07/18 08:36 Dose: 20 mg Finasteride (Proscar) 5 mg PO DAILY [facility] 234 B[facility]S [facility] Last Admin: 01/07/18 08:35 Dose: 5 mg Fluconazole (Diflucan) 100 mg PO DAILY [facility] 234 B[facility]S [facility] Last Admin: 01/07/18 08:35 Dose: 100 mg Glucagon (Glucagon) 1 mg IM PRN PRN PRN Reason: Hypoglycemia Guaifenesin (Robitussin Sf) 200 mg PO Q4H PRN PRN Reason: Cough Hydralazine HCl (Apresoline) 10 mg SLOW IVP Q4H PRN PRN Reason: Systolic BP > 180 Dextrose/Water (D5w) 1,000 mls @ 0 mls/hr IV .Q0M PRN PRN Reason: Hypoglycemia Ceftriaxone Sodium 1 gm/ (Sodium Chloride) 100 mls @ 200 mls/hr IVPB 2300 [facility] 234 B[facility]S [facility] Last Admin: 01/06/18 22:22 Dose: 100 mls Insulin Human Lispro (Humalog) 0 units SC .MODERATE SLIDING SC PRN PRN Reason: Moderate Correctional Scale Insulin Human Lispro (Humalog) 0 units SC .BEDTIME SLIDING SC PRN PRN Reason: Bedtime Correctional Scale Loperamide HCl (Imodium) 2 mg PO PRN PRN PRN Reason: Diarrhea/Loose Stools Loratadine (Claritin) 10 mg PO DAILYPRN PRN PRN Reason: Sinus Symptoms Magnesium Hydroxide (Milk Of Magnesium) 30 ml PO DAILYPRN PRN PRN Reason: Constipation Memantine (Namenda) 10 mg PO BID [facility] 234 B[facility]S [facility] Last Admin: 01/07/18 08:36 Dose: 10 mg Metformin HCl (Glucophage) 1,000 mg PO BID-[facility] Last Admin: 01/07/18 08:36 Dose: 1,000 mg Metoprolol Tartrate (Lopressor) 75 mg PO BID [facility] 234 B[facility]S [facility] Last Admin: 01/07/18 08:35 Dose: 75 mg Mineral Oil/White Petrolatum (Eucerin Cream) 0 gm TOP BIDPRN PRN PRN Reason: Dry Skin Mirabegron (Myrbetriq Er) 25 mg PO DAILY [facility] 234 [facility]S [facility] Last Admin: 01/07/18 08:35 Dose: 25 mg Ondansetron HCl (Zofran) 4 mg IVP Q6H PRN PRN Reason: Nausea/Vomiting Ondansetron HCl (Zofran Odt) 4 mg PO Q6H PRN PRN Reason: Nausea/Vomiting Last Admin: 01/05/18 11:28 Dose: 4 mg Phenol (Chloraseptic [place] 180 Ml Bot) 0 ml PO PRN PRN PRN Reason: Sore Throat Sacubitril/Valsartan (Entresto 24.5 Mg-25.5 Mg Tablet) 1 tab PO BID [facility] 234 B[facility]S [facility] Last Admin: 01/07/18 09:11 Dose: 1 tab Senna (Senokot) 2 tab PO HSPRN PRN PRN Reason: Constipation Sodium Chloride (Flush - Normal Saline) 10 ml IVF Q12HR [facility] 234 BEDS [facility] Last Admin: 01/07/18 08:37 Dose: 10 ml Sodium Chloride (Flush - Normal Saline) 10 ml IVF PRN PRN PRN Reason: Saline Flush Sodium Chloride ([place] Nasal [place] 0.65%) 0 ml EA NARE QIDPRN PRN PRN Reason: Nasal Congestion Tamsulosin HCl (Flomax) 0.4 mg PO DAILY [facility] 234 [facility]S [facility] Last Admin: 01/07/18 08:35 Dose: 0.4 mg Temazepam (Restoril) 15 mg PO HSPRN PRN PRN Reason: Insomnia
[2018-01-07] MEDS: cefTRIAXone\\ROCEPHIN 1 GM in Sodium Chloride 0.9% 100 ML IVPB SCH (23:22)
[2018-01-08] MEDS: Enoxaparin Sodium 40 MG/0.4 ML SYRINGE SC SCH (09:31)
[2018-01-08] MEDS: Finasteride 5 MG TAB PO SCH (09:31)
[2018-01-08] MEDS: Aspirin 325 MG TAB PO SCH (09:31)
[2018-01-08] MEDS: Fluconazole 100 MG TAB PO SCH (09:31)
--- NOTE | 2018-01-08 09:31 | PDOC.PN ---
- Subjective Encounter Start Date: 01/08/18 Encounter Start Time: 08:20 Patient seen and examined. No new complaints. No overnight events - Objective Resuscitation Status: Resuscitation Status FULL:Full Resuscitation MAR Reviewed: Yes Vital Signs & Weight: Vital Signs (12 hours) Temp Pulse Resp BP Pulse Ox 01/08/18 08:00 97 01/08/18 07:58 97.3 F L 80 16 109/59 L 97 01/08/18 04:00 97.7 F 74 14 119/57 L 99 Weight Admit Weight 174 lb 4.8 oz Weight 175 lb 8 oz I&O: 01/07/18 01/08/18 01/09/18 06:59 06:59 06:59 Intake Total 1420 Output Total 700 Balance 720 Result Diagrams: 01/07/18 04:58 01/07/18 04:58 Additional Labs: Accuchecks 01/08/18 01/07/18 01/07/18 05:31 21:04 16:47 POC Glucose 222 H 238 H 174 H 01/07/18 11:10 POC Glucose 137 H EKG Reviewed by me: Yes (nsr) Phys Exam - Physical Examination Constitutional: NAD HEENT: PERRLA, moist MMs, sclera anicteric Neck: no JVD, supple Respiratory: no wheezing, no rales, no rhonchi Cardiovascular: RRR, no significant murmur, no rub Gastrointestinal: soft, non-tender, no distention, positive bowel sounds Musculoskeletal: no edema, pulses present Neurological: non-focal, normal sensation, moves all 4 limbs Psychiatric: normal affect, A&O x 3 Skin: no rash, normal turgor Dx/Plan (1) UTI (urinary tract infection) Status: Acute (2) Acute kidney failure Status: Resolved (3) Encephalopathy acute Code(s): G93.40 - ENCEPHALOPATHY, UNSPECIFIED Status: Resolved (4) Hyperkalemia Code(s): E87.5 - HYPERKALEMIA Status: Resolved (5) Lactic acidosis Code(s): E87.2 - ACIDOSIS Status: Resolved (6) Sepsis with acute organ dysfunction Code(s): A41.9 - SEPSIS, UNSPECIFIED ORGANISM; R65.20 - SEVERE SEPSIS WITHOUT SEPTIC SHOCK Status: Acute (7) Chronic combined systolic and diastolic congestive heart failure Code(s): I50.42 - CHRONIC COMBINED SYSTOLIC AND DIASTOLIC HRT FAIL Status: Chronic (8) DM type 2 (diabetes mellitus, type 2) Status: Chronic Qualifiers: (9) Dementia Code(s): F03.90 - UNSPECIFIED DEMENTIA WITHOUT BEHAVIORAL DISTURBANCE Status: Chronic (10) Dyslipidemia Code(s): E78.5 - HYPERLIPIDEMIA, UNSPECIFIED Status: Chronic (11) HTN (hypertension) Code(s): I10 - ESSENTIAL (PRIMARY) HYPERTENSION Status: Chronic Qualifiers: - Plan cont current plan of care, continue antibiotics, PT/OT, aids social worker * medication reviewed as below * symptomatic treatment * await snu placement * stable otherwise. Review of Systems - Review of Systems ENT: negative: Ear Pain, Ear Discharge, Nose Pain, Nose Discharge, Nose Congestion, Mouth Pain, Mouth Swelling, Throat Pain, Throat Swelling, Other Respiratory: negative: Cough, Dry, Shortness of Breath, Hemoptysis, SOB with Excertion, Pleuritic Pain, Sputum, Wheezing Cardiovascular: negative: chest pain, palpitations, orthopnea, paroxysmal nocturnal dyspnea, edema, light headedness, other Gastrointestinal: negative: Nausea, Vomiting, Abdominal Pain, Diarrhea, Constipation, Melena, Hematochezia, Other Genitourinary: negative: Dysuria, Frequency, Incontinence, Hematuria, Retention , Other Musculoskeletal: negative: Neck Pain, Shoulder Pain, Arm Pain, Back Pain, Hand Pain, Leg Pain, Foot Pain, Other Skin: negative: Rash, Lesions, Chad, Bruising, Other - Medications/Allergies Allergies/Adverse Reactions: Allergies Allergy/AdvReac Type Severity Reaction Status Date / Time No Known Drug Allergies Allergy Verified 06/08/17 19:00 Medications: Current Medications Acetaminophen (Tylenol) 650 mg PO Q4H PRN PRN Reason: Headache/Fever or Pain Hydrocodone Bitart/Acetaminophen ([place] 5/325) 1 tab PO Q4H PRN PRN Reason: Moderate Pain (4-6) Al Hydroxide/Mg Hydroxide (Maalox) 15 ml PO Q4H PRN PRN Reason: Heartburn or Indigestion Artificial Tears (Tears Naturale) 0 drop EA EYE PRN PRN PRN Reason: Dry Eyes Aspirin (Aspirin) 325 mg PO DAILY [facility] Last Admin: 01/07/18 08:35 Dose: 325 mg Atorvastatin Calcium (Lipitor) 20 mg PO DAILY [facility] Last Admin: 09/24/18 08:35 Dose: 20 mg Dextrose/Water (Dextrose 50%) 25 gm SLOW IVP PRN PRN PRN Reason: Hypoglycemia Enoxaparin Sodium (Lovenox) 40 mg SC 0900 [facility] Last Admin: 01/07/18 08:35 Dose: 40 mg Famotidine (Pepcid) 20 mg PO DAILY [facility] Last Admin: 01/07/18 08:36 Dose: 20 mg Finasteride (Proscar) 5 mg PO DAILY [facility] Last Admin: 01/07/18 08:35 Dose: 5 mg Fluconazole (Diflucan) 100 mg PO DAILY [facility] Last Admin: 01/07/18 08:35 Dose: 100 mg Glucagon (Glucagon) 1 mg IM PRN PRN PRN Reason: Hypoglycemia Guaifenesin (Robitussin Sf) 200 mg PO Q4H PRN PRN Reason: Cough Hydralazine HCl (Apresoline) 10 mg SLOW IVP Q4H PRN PRN Reason: Systolic BP > 180 Dextrose/Water (D5w) 1,000 mls @ 0 mls/hr IV .Q0M PRN PRN Reason: Hypoglycemia Ceftriaxone Sodium 1 gm/ (Sodium Chloride) 100 mls @ 200 mls/hr IVPB 2300 [facility] Last Admin: 01/07/18 23:22 Dose: 100 mls Insulin Human Lispro (Humalog) 0 units SC .MODERATE SLIDING SC PRN PRN Reason: Moderate Correctional Scale Insulin Human Lispro (Humalog) 0 units SC .BEDTIME SLIDING SC PRN PRN Reason: Bedtime Correctional Scale Loperamide HCl (Imodium) 2 mg PO PRN PRN PRN Reason: Diarrhea/Loose Stools Loratadine (Claritin) 10 mg PO DAILYPRN PRN PRN Reason: Sinus Symptoms Magnesium Hydroxide (Milk Of Magnesium) 30 ml PO DAILYPRN PRN PRN Reason: Constipation Memantine (Namenda) 10 mg PO BID [facility] Last Admin: 01/07/18 20:33 Dose: 10 mg Metformin HCl (Glucophage) 1,000 mg PO BID[facility] Last Admin: 01/07/18 16:12 Dose: 1,000 mg Metoprolol Tartrate (Lopressor) 75 mg PO BID [facility] Last Admin: 01/07/18 20:32 Dose: 75 mg Mineral Oil/White Petrolatum (Eucerin Cream) 0 gm TOP BIDPRN PRN PRN Reason: Dry Skin Mirabegron (Myrbetriq Er) 25 mg PO DAILY [facility] Last Admin: 01/07/18 08:35 Dose: 25 mg Ondansetron HCl (Zofran) 4 mg IVP Q6H PRN PRN Reason: Nausea/Vomiting Ondansetron HCl (Zofran Odt) 4 mg PO Q6H PRN PRN Reason: Nausea/Vomiting Last Admin: 01/05/18 11:28 Dose: 4 mg Phenol (Chloraseptic [place] 180 Ml Bot) 0 ml PO PRN PRN PRN Reason: Sore Throat Sacubitril/Valsartan (Entresto 24.5 Mg-25.5 Mg Tablet) 1 tab PO BID [facility] Last Admin: 01/07/18 21:13 Dose: 1 tab Senna (Senokot) 2 tab PO HSPRN PRN PRN Reason: Constipation Sodium Chloride (Flush - Normal Saline) 10 ml IVF Q12HR [facility] Last Admin: 01/07/18 20:34 Dose: 10 ml Sodium Chloride (Flush - Normal Saline) 10 ml IVF PRN PRN PRN Reason: Saline Flush Sodium Chloride ([place] Nasal [place] 0.65%) 0 ml EA NARE QIDPRN PRN PRN Reason: Nasal Congestion Tamsulosin HCl (Flomax) 0.4 mg PO DAILY [facility] Last Admin: 01/07/18 08:35 Dose: 0.4 mg Temazepam (Restoril) 15 mg PO HSPRN PRN PRN Reason: Insomnia
[2018-01-08] MEDS: Metoprolol Tartrate 50 MG TAB PO SCH (09:32)
[2018-01-08] MEDS: Famotidine 20 MG TAB PO SCH (09:32)
[2018-01-08] MEDS: Atorvastatin Calcium 20 MG TAB PO SCH (09:32)
[2018-01-08] MEDS: metFORMIN 500 MG TAB PO SCH (09:33)
[2018-01-08] MEDS: Tamsulosin HCl 0.4 MG CAP PO SCH (09:33)
[2018-01-08] MEDS: Sacubitril 24.5 MG/Valsartan 25.5 MG TABLET PO SCH (11:08)
[2018-01-08] MEDS ORDERED: Insulin Glargine 45 UNITS in Pre-Filled Syringe 1 EACH SC SCH (13:00)
--- NOTE | 2018-01-08 15:36 | DIS ---
PRIMARY CARE PHYSICIAN: [facility] [place] call admission. DATE OF ADMISSION: 01/04/2018 DATE OF DISCHARGE: 01/08/2018 DISCHARGE DISPOSITION: Swing bed. PRIMARY DISCHARGE DIAGNOSES: Urinary tract infection, sepsis with acute organ dysfunction, lactic ac idosis, acute kidney failure, acute encephalopathy, and hyperkalemia. SECONDARY DISCHARGE DIAGNOSES: Combined systolic and diastolic heart failure, dementia, diabetes typ e 2, dyslipidemia, hypertension, benign enlargement of prostate, chronic atrial flutter with a contro lled rate. PRIMARY PROCEDURE/OPERATION: None. RADIOLOGICAL INVESTIGATION: Chest x-ray showed no acute cardiopulmonary process. Echocardiography s howed EF 50% to 55%, moderate mitral regurgitation, moderate tricuspid regurgitation. SIGNIFICANT LABORATORY DATA: WBC 9.6, hemoglobin 10.9, platelet 279. Sodium 135, potassium 3.7, BUN 22, creatinine 1.11, calcium 8.1. Urinalysis suggestive of UTI. Urine culture grew yeast. Blood c ulture negative. Influenza negative. DISCHARGE MEDICATIONS: Aspirin 325 mg p.o. daily, Lipitor 20 mg p.o. daily, Proscar 5 mg p.o. daily, Levemir 45 units subcu daily, Namenda 10 mg p.o. b.i.d., metformin 1000 mg p.o. b.i.d., Lopressor 75 mg p.o. b.i.d., mirabegron 25 mg p.o. daily, Entresto one tablet p.o. b.i.d., Aldactone 12.5 mg p.o. daily, Flomax 0.4 mg p.o. daily, Diflucan 100 mg p.o. daily for 7 days, Florastor 250 mg p.o. daily for 7 days. CONTRAINDICATIONS: None. CODE STATUS: FULL CODE. INPATIENT CONSULTANTS: None. ALLERGIES: No known drug allergy. DISCHARGE PLAN: Post hospital, the patient is discharged to swing bed in [place]. Subsequently, russ mcdaniel will follow up with primary care physician. HOSPITAL COURSE: A 77-year-old male with above-mentioned medical problem, who was admitted by me on 01/05/2018. Please see my HPI for further details. The patient was admitted for altered mental stat us. He was found with acute kidney failure. He had hyperkalemia and he had urinary tract infection. He was having sepsis with acute organ dysfunction. He was admitted to telemetry floor. He was divya ated with IV fluid. With IV fluid, his renal function improved. His hyperkalemia improved. His lac tic acidosis resolved. He was treated with Rocephin. He was initially treated with Rocephin and van comycin, but subsequently, culture grew yeast. At that point, we added Diflucan therapy. Patient wa s given 5 days course of therapy with Rocephin while in hospital, but only on discharge Diflucan was prescribed based on culture result. This patient had physical deconditioning and that is why we did a PT, OT while in hospital and they r ecommended placement. The patient and family member also agreed to go to swing bed. With help of ca se real estate leasing manager, we arranged swing bed at [place]. At this point, with the patient is medically stable. During this admission, we did echocardiography, which showed improvement in EF, but it did show atrial flutter and moderate mitral and tricuspid reg urgitation. This patient is currently euvolemic. While in hospital, we continued all his home medic ation as well as upon discharge. The patient is seen and examined at bedside today. Please see my progress note from today for furthe r details. Paper work for discharge done. Discharge medication reconciliation done. Total time spent on discharge day 32 minutes.
[2018-01-08 17:04] VITALS: BP 122/56; TEMP 97.6
[2018-01-09] MEDS ORDERED: Insulin Glargine 45 UNITS in Pre-Filled Syringe 1 EACH SC SCH (09:00)
== END 2018-01-08 16:50 | DRG 871 ==
LOC: ERS 20:41 → 2NO 23:33
PROVIDERS: ADMIT Internal Medicine; ATTEND Internal Medicine
DX: A41.9 Sepsis, unspecified organism (principal); G93.41 Metabolic encephalopathy; N39.0 Urinary tract infection, site not specified; N17.9 Acute kidney failure, unspecified; E87.2 Acidosis; I50.42 Chronic combined systolic (congestive) and diastolic (congestive) heart failure; L02.214 Cutaneous abscess of groin; I48.92 Unspecified atrial flutter; R65.20 Severe sepsis without septic shock; E87.5 Hyperkalemia; I11.0 Hypertensive heart disease with heart failure; E78.5 Hyperlipidemia, unspecified; Z91.81 History of falling; I25.2 Old myocardial infarction; Z95.810 Presence of automatic (implantable) cardiac defibrillator; N40.0 Benign prostatic hyperplasia without lower urinary tract symptoms; E86.0 Dehydration; I25.10 Atherosclerotic heart disease of native coronary artery without angina pectoris; G30.1 Alzheimer's disease with late onset; F02.80 Dementia in other diseases classified elsewhere, unspecified severity, without behavioral disturbance, psychotic disturbance, mood disturbance, and anxiety; E11.51 Type 2 diabetes mellitus with diabetic peripheral angiopathy without gangrene; Z89.422 Acquired absence of other left toe(s)
CPT/HCPCS: 36415; 36416; 71045; 80048; 80053; 81003; 81015; 83605; 83690; 85025; 87040; 87086; 87804; 93005; 93306; A4216; G8978-GP-CK; G8979-GP-CI; G8987-GO-CI; G8988-GO-CI; G8989-GO-CI; J0696; J1650; J3370; J7050; Q0162

== ENCOUNTER 2018-03-04 12:45 | Outpatient (CLI) | payer MEDICARE, BC ==
[2018-03-04 14:20] LABS: Hemoglobin 12.9 g/dL (14.0-18.0); Mean Corpuscular HGB CONC 32.7 g/dL (32.0-36.0); Mean Corpuscular Hemoglobin 29.1 pg (27.0-31.0); Mean Corpuscular Volume 88.8 fL (78.0-98.0); Platelet Count 323 thou/uL (130-400); RBC Distribution Width 13.5 % (11.5-14.5); Red Blood Cell (RBC) Count 4.42 mill/uL (4.70-6.10); White Blood Cell (WBC) Count 8.8 thou/uL (4.8-10.8)
[2018-03-04 14:44] LABS: Anion Gap 15 mmol/L (10-20); BUN (Urea Nitrogen) 22 mg/dL (8.4-25.7); Calc. Creatinine Clearance 0 mL/min (70-130); Calcium 9.6 mg/dL (7.8-10.44); Carbon Dioxide 22 mmol/L (23-31); Chloride 103 mmol/L (98-107); Estimated GFR-MDRD 57; Glucose 307 mg/dL (83-110); Potassium 4.4 mmol/L (3.5-5.1); Sodium 136 mmol/L (136-145)
== END 2018-03-04 12:46 | disposition home or self-care (01) ==
LOC: LABBT 12:45
PROVIDERS: ATTEND Urology
DX: Z01.818 Encounter for other preprocedural examination (principal); N30.20 Other chronic cystitis without hematuria; N32.0 Bladder-neck obstruction
CPT/HCPCS: 80048; 85027; 93005; 93010

== ENCOUNTER 2018-03-11 07:10 | Observation (INO) | payer MEDICARE, BC ==
[2018-03-04 13:11] VITALS: BMI 25.8
[2018-03-11 08:19] LABS: PTT 23.4 SEC (22.9-36.1); Prothrombin Time 12.9 SEC (12.0-14.7)
[2018-03-11] MEDS ORDERED: Levofloxacin 500 mg/D5W 100 ml Premix Bag ONE (08:22)
[2018-03-11] MEDS ORDERED: Fentanyl 100 MCG/2 ML VIAL ONE ×2 (09:09→11:37)
[2018-03-11] MEDS ORDERED: B & O ONE (10:36)
[2018-03-11] MEDS ORDERED: Bacitracin Zinc Ointment 30 gm TUBE ONE (10:43)
--- NOTE | 2018-03-11 12:18 | OP ---
DATE OF PROCEDURE: 03/11/2018 PREOPERATIVE DIAGNOSES: Recurrent urinary tract infections, bladder outlet obstruction and phimosis. POSTOPERATIVE DIAGNOSES: Recurrent infections, bladder outlet obstruction and phimosis. PROCEDURE: Cystoscopy, TURP. We also did a dorsal slit because of the severe phimosis. SPECIMEN REMOVED: Prostatic chips and numerous prostatic calculi. ESTIMATED BLOOD LOSS: 100 mL. DRAINS PLACED: A 22-[place] Tong 3-way with 60 mL in the balloon. FINDINGS: He had extremely tight phimosis. We were unable to pull his foreskin back to prep underne ath it. He had no evidence of stricture disease, large trilobar BPH, 1+ trabeculation, 2 ureteral or ifices in normal position. No bladder stones, numerous dilated cystic prostatic ducts full of multi ple stones. OPERATIVE TECHNIQUE: After obtaining written and verbal consent from the patient after receiving IV antibiotics, he was taken the operating suite. He was placed in the supine position on the treatment table. PlexiPulses were placed on his lower extremities and turned on. He was given a general anes thetic and oral obturator intubation. He was placed in the dorsal lithotomy position, sterilely prep ped and draped for the above procedures. Cystoscopy was performed with a 22 Guine[place] sheath. This was passed under direct vision with the aid of a 30-degree lens and video camera and monitor into the adder. The bladder was filled and emptied a number of times and examined with both a 30 and 70 degre e lens. Next, we brought in a 24-[place]inean resectoscope sheath with the visual obturator and used a 30 degree lens and a video camera to pass this through the male urethra into the bladder. Alba rese ctoscope with a gyrus prostate loop, a gyrus generator and 30 degree lens video camera monitor were u sed. Our landmarks including the bladder neck, verumontanum, and ureteral orifices were identified a nd the median lobe and the floor was resected from 5-7 o'clock back to capsular fibers, the left lobe from 1-5 and the right lobe from 11 to 7, back to capsular fibers. Numerous prostatic calculi were encountered and flushed out. Hemostasis was obtained with electrocautery unit. A repeat cystoscopy showed no evidence of any injury to the ureteral orifices or trigone, had just some tiny little prost atic stones that entered the bladder, nothing of any size. All chips were out. A Tong catheter was placed with the aid of a catheter guide. 60 mL placed in balloon. It was brought down on gentle tr action, hand irrigated, it was clear. This was kept on mild traction and we went ahead and placed a straight hemostat across the dorsum of the foreskin crushing it and then cutting between it securing the edges with curved hemostats x3. We then reprepped the entire inner foreskin and incision line wi th Betadine. We then went ahead and controlled hemostasis with electrocautery unit and then secured the edges of the foreskin to each other to keep them with 3-0 chromic U stitches. Triple a ntibiotic ointment was placed. A penile block of 2% Xylocaine was placed. The catheter was reirriga shaye, remained clear. It was placed on gentle traction to his right thigh after he was taken out of t he dorsal lithotomy position. Triple antibiotic ointment was placed on a dorsal slit site and some d ry 4 x 4s. He was awakened, extubated, and taken by stretcher to the recovery room.
[2018-03-11] MEDS ORDERED: PROPOFOL 200 MG/20 ML VIAL ONE (13:41)
[2018-03-11] MEDS ORDERED: Lidocaine 1% PF 5 ML VIAL ONE (13:41)
[2018-03-11] MEDS ORDERED: Glycopyrrolate 0.2 MG/ML 5 ML SYRINGE ONE (13:41)
[2018-03-11] MEDS ORDERED: PHENYLEPHRINE-NS 100 MCG/ML 10 ML SYRINGE ONE (13:41)
[2018-03-11] MEDS ORDERED: Dexamethasone 20 MG/5 ML VIAL ONE (13:41)
[2018-03-11] MEDS ORDERED: Ondansetron PF 4 MG/2 ML Vial ONE (13:41)
[2018-03-11] MEDS ORDERED: Esmolol 100 MG/10 ML VIAL ONE (13:41)
[2018-03-11] MEDS ORDERED: Dextrose 50% Abboject 50 ML SYRINGE SLOW IVP PRN (14:22)
[2018-03-11] MEDS ORDERED: Benzonatate 100 MG CAP PO PRN (14:22)
[2018-03-11] MEDS ORDERED: Acetaminophen 500 MG TAB PO PRN ×2 (14:22)
[2018-03-11] MEDS ORDERED: HumaLOG 300 UNITS/3 ML VIAL SC PRN (14:22)
[2018-03-11] MEDS ORDERED: Bisacodyl 5 MG TAB PO PRN (14:22)
[2018-03-11] MEDS ORDERED: Diabetic Tussin 200 MG/10 ML UDCUP PO PRN (14:22)
[2018-03-11] MEDS ORDERED: Dextrose 5% in Water 1,000 ML IV PRN (14:22)
[2018-03-11] MEDS ORDERED: Sodium Chloride 0.65% Nasal 44 ML BOT EA NARE PRN (14:22)
[2018-03-11] MEDS ORDERED: Senokot S 8.6-50 MG TAB PO PRN (14:22)
[2018-03-11] MEDS ORDERED: hydrALAZINE 20 MG/ML VIAL SLOW IVP PRN (14:22)
[2018-03-11] MEDS ORDERED: cloNIDine 0.1 MG TAB PO PRN (14:22)
[2018-03-11] MEDS ORDERED: traMADol HCl 50 MG TAB PO PRN (14:42)
--- NOTE | 2018-03-11 14:48 | PDOC.PN ---
- Subjective Encounter Start Date: 03/11/18 Encounter Start Time: 14:46 Subjective: seen & examined at bedside.s/p cystoscopy & TURP & dorsal slit for phimosis -: IM team consulted for medical management -: Chart reviewed in detail, from last admission as well - Objective MAR Reviewed: Yes Vital Signs & Weight: Vital Signs (12 hours) Temp Pulse Resp BP Pulse Ox 03/11/18 13:35 97.5 F L 87 18 124/84 03/11/18 12:35 97.5 F L 65 18 120/78 100 Weight Weight 175 lb Additional Labs: Accuchecks 03/11/18 08:51 POC Glucose 296 H Phys Exam - Physical Examination Constitutional: NAD HEENT: PERRLA, moist MMs, sclera anicteric, oral pharynx no lesions Neck: no nodes, no JVD, supple, full ROM Respiratory: no wheezing, no rales, no rhonchi, clear to auscultation bilateral Cardiovascular: RRR, no significant murmur, no rub Gastrointestinal: soft, non-tender, no distention, positive bowel sounds CBI in place w blood tinged urine in bag Musculoskeletal: no edema, pulses present Neurological: non-focal, normal sensation, moves all 4 limbs Psychiatric: normal affect, A&O x 3 Skin: no rash Dx/Plan (1) Recurrent UTI (urinary tract infection) Code(s): N39.0 - URINARY TRACT INFECTION, SITE NOT SPECIFIED Status: Acute Comment: s/p TURP and cystoscopy 03/11/18 (2) S/P TURP Code(s): Z90.79 - ACQUIRED ABSENCE OF OTHER GENITAL ORGAN(S) Status: Acute (3) Chronic combined systolic and diastolic congestive heart failure Code(s): I50.42 - CHRONIC COMBINED SYSTOLIC AND DIASTOLIC HRT FAIL Status: Chronic (4) DM type 2 (diabetes mellitus, type 2) Status: Chronic Qualifiers: (5) Dementia Code(s): F03.90 - UNSPECIFIED DEMENTIA WITHOUT BEHAVIORAL DISTURBANCE Status: Chronic (6) Dyslipidemia Code(s): E78.5 - HYPERLIPIDEMIA, UNSPECIFIED Status: Chronic (7) HTN (hypertension) Code(s): I10 - ESSENTIAL (PRIMARY) HYPERTENSION Status: Chronic Qualifiers: - Plan out of bed/ambulate, DVT proph w/SCDs Clinically stable post procedure. monitor H/H.cont CBI -: Home meds restarted as below.Hold metformin. -: add ISS w frequent accuchecks. -: am labs -: IM team will follow. * .Code status discussed -Full code * Pt can not remember name for PCP. Review of Systems - Review of Systems Constitutional: negative: fever, chills, sweats, weakness, malaise, other ENT: negative: Ear Pain, Ear Discharge, Nose Pain, Nose Discharge, Nose Congestion, Mouth Pain, Mouth Swelling, Throat Pain, Throat Swelling, Other Respiratory: negative: Cough, Dry, Shortness of Breath, Hemoptysis, SOB with Excertion, Pleuritic Pain, Sputum, Wheezing Cardiovascular: negative: chest pain, palpitations, orthopnea, paroxysmal nocturnal dyspnea, edema, light headedness, other Gastrointestinal: negative: Nausea, Vomiting, Abdominal Pain, Diarrhea, Constipation, Melena, Hematochezia, Other Genitourinary: negative: Dysuria, Frequency, Incontinence, Hematuria, Retention , Other Musculoskeletal: negative: Neck Pain, Shoulder Pain, Arm Pain, Back Pain, Hand Pain, Leg Pain, Foot Pain, Other Skin: negative: Rash, Lesions, Chad, Bruising, Other Neurological: negative: Weakness, Numbness, Incoordination, Change in Speech, Confusion, Seizures, Other - Medications/Allergies Allergies/Adverse Reactions: Allergies Allergy/AdvReac Type Severity Reaction Status Date / Time No Known Drug Allergies Allergy Verified 03/04/18 13:11 Medications: Current Medications Acetaminophen (Tylenol) 1,000 mg PO Q6H PRN PRN Reason: Mild Pain (1-3) Acetaminophen (Tylenol) 1,000 mg PO Q4H PRN PRN Reason: Fever > 101 Atorvastatin Calcium (Lipitor) 20 mg PO HS TAUL Benzonatate (Tessalon) 100 mg PO Q6H PRN PRN Reason: Cough Bisacodyl (Dulcolax) 10 mg PO DAILYPRN PRN PRN Reason: Constipation Clonidine (Catapres) 0.1 mg PO Q4H PRN PRN Reason: SBP >160 ____ Dextrose/Water (Dextrose 50%) 25 gm SLOW IVP PRN PRN PRN Reason: Hypoglycemia Finasteride (Proscar) 5 mg PO HS ATUL Glucagon (Glucagon) 1 mg IM PRN PRN PRN Reason: Hypoglycemia Guaifenesin (Robitussin Sf) 200 mg PO Q4H PRN PRN Reason: Cough Hydralazine HCl (Apresoline) 10 mg SLOW IVP Q4H PRN PRN Reason: SBP > 180 and HR < 70 Insulin Glargine 35 units/ (Miscellaneous Medication) 0.35 mls @ 0 mls/hr SC QAM ATUL Dextrose/Water (D5w) 1,000 mls @ 0 mls/hr IV .Q0M PRN PRN Reason: Hypoglycemia Insulin Human Lispro (Humalog) 0 units SC .MODERATE SLIDING SC PRN PRN Reason: Moderate Correctional Scale Insulin Human Lispro (Humalog) 0 units SC .BEDTIME SLIDING SC PRN PRN Reason: Bedtime Correctional Scale Memantine (Namenda) 10 mg PO BID ATUL Metoprolol Succinate (Toprol Xl) 75 mg PO BID REPLACED BY [facility] Sacubitril/Valsartan (Entresto 24.5 Mg-25.5 Mg Tablet) 1 tab PO BID ATUL Senna/Docusate Sodium (Senokot S) 2 tab PO BID PRN PRN Reason: Constipation Sodium Chloride ([place] Nasal [place] 0.65%) 0 ml EA NARE QIDPRN PRN PRN Reason: Nasal Congestion Sodium Chloride (Flush - Normal Saline) 10 ml IVF Q12HR REPLACED BY [facility] Sodium Chloride (Flush - Normal Saline) 10 ml IVF PRN PRN PRN Reason: Saline Flush Spironolactone (Aldactone) 12.5 mg PO QAM-WM ATUL Tramadol HCl (Ultram) 50 mg PO Q6H PRN PRN Reason: Pain
[2018-03-11] MEDS: HumaLOG 300 UNITS/3 ML VIAL SC PRN (15:53)
[2018-03-11] MEDS ORDERED: metFORMIN 500 MG TAB PO SCH (17:00)
[2018-03-11] MEDS: B & O PR SCH (18:07)
[2018-03-11] MEDS: Atorvastatin Calcium 20 MG TAB PO SCH (20:26)
[2018-03-11] MEDS: Finasteride 5 MG TAB PO SCH (20:26)
[2018-03-11] MEDS: Sacubitril 24.5 MG/Valsartan 25.5 MG TABLET PO SCH (20:26)
[2018-03-12] MEDS: B & O PR SCH ×3 (02:56→18:11)
[2018-03-12] MEDS: HumaLOG 300 UNITS/3 ML VIAL SC PRN ×4 (06:31→21:25)
[2018-03-12 06:44] LABS: #Monocytes 0.6 thou/uL (0.11-0.59); #Neutrophils 10.9 thou/uL (1.40-6.50); %Basophils 0.1 % (0.0-1.0); %Eosinophils 0.2 % (0.0-10.0); %Lymphocytes 8.2 % (21.0-51.0); %Monocytes 4.7 % (0.0-10.0); %Neutrophils 86.9 % (42.0-75.0); Hemoglobin 11.3 g/dL (14.0-18.0); Mean Corpuscular HGB CONC 34.4 g/dL (32.0-36.0); Mean Corpuscular Hemoglobin 30.3 pg (27.0-31.0); Platelet Count 291 thou/uL (130-400); RBC Distribution Width 13.7 % (11.5-14.5); Red Blood Cell (RBC) Count 3.72 mill/uL (4.70-6.10); White Blood Cell (WBC) Count 12.5 thou/uL (4.8-10.8)
[2018-03-12 07:01] LABS: Anion Gap 14 mmol/L (10-20); BUN (Urea Nitrogen) 16 mg/dL (8.4-25.7); Calc. Creatinine Clearance 76 mL/min (70-130); Calcium 8.4 mg/dL (7.8-10.44); Carbon Dioxide 21 mmol/L (23-31); Chloride 104 mmol/L (98-107); Estimated GFR-MDRD 79; Glucose 276 mg/dL (83-110); Potassium 4.4 mmol/L (3.5-5.1); Sodium 135 mmol/L (136-145)
[2018-03-12] MEDS: Spironolactone 25 MG TAB PO SCH (08:00)
[2018-03-12] MEDS: Insulin Glargine 35 UNITS in Pre-Filled Syringe SC SCH (10:14)
[2018-03-12] MEDS: Sacubitril 24.5 MG/Valsartan 25.5 MG TABLET PO SCH ×2 (10:14→20:45)
[2018-03-12] MEDS: Bacitracin Zinc Ointment 30 gm TUBE TOP SCH ×2 (12:27→20:46)
--- NOTE | 2018-03-12 14:42 | PDOC.PN ---
- Subjective Encounter Start Date: 03/12/18 Encounter Start Time: 14:40 Subjective: feels well. no acute complaints - Objective Resuscitation Status: 03/12/18 12:30 Resuscitation Status Routine Resuscitation Status: FULL: Full Resuscitation Discussed with: Per Notes MAR Reviewed: Yes Vital Signs & Weight: Vital Signs (12 hours) Temp Pulse Resp BP Pulse Ox 03/12/18 07:25 97.5 F L 47 L 18 124/75 98 03/12/18 07:12 97.6 F 68 16 134/74 98 03/12/18 04:00 97.5 F L 62 19 118/75 98 Weight Weight 175 lb I&O: 03/11/18 03/12/18 03/13/18 06:59 06:59 06:59 Intake Total 1800 110 Output Total 1600 1100 Balance 200 -990 Result Diagrams: 03/12/18 04:49 03/12/18 04:49 Additional Labs: Accuchecks 03/12/18 03/12/18 03/11/18 11:40 06:12 20:37 POC Glucose 274 H 258 H 344 H 03/11/18 15:39 POC Glucose 340 H Phys Exam - Physical Examination Constitutional: NAD HEENT: PERRLA, moist MMs, sclera anicteric, oral pharynx no lesions Neck: no nodes, no JVD, supple, full ROM Respiratory: no wheezing, no rales, no rhonchi, clear to auscultation bilateral Cardiovascular: RRR, no significant murmur, no rub Gastrointestinal: soft, non-tender, no distention, positive bowel sounds Musculoskeletal: no edema, pulses present Neurological: non-focal, normal sensation, moves all 4 limbs Psychiatric: normal affect, A&O x 3 Dx/Plan (1) Recurrent UTI (urinary tract infection) Code(s): N39.0 - URINARY TRACT INFECTION, SITE NOT SPECIFIED Status: Acute Comment: s/p TURP and cystoscopy 03/11/18 (2) S/P TURP Code(s): Z90.79 - ACQUIRED ABSENCE OF OTHER GENITAL ORGAN(S) Status: Acute (3) Chronic combined systolic and diastolic congestive heart failure Code(s): I50.42 - CHRONIC COMBINED SYSTOLIC AND DIASTOLIC HRT FAIL Status: Chronic (4) DM type 2 (diabetes mellitus, type 2) Status: Chronic Qualifiers: (5) Dementia Code(s): F03.90 - UNSPECIFIED DEMENTIA WITHOUT BEHAVIORAL DISTURBANCE Status: Chronic (6) Dyslipidemia Code(s): E78.5 - HYPERLIPIDEMIA, UNSPECIFIED Status: Chronic (7) HTN (hypertension) Code(s): I10 - ESSENTIAL (PRIMARY) HYPERTENSION Status: Chronic Qualifiers: - Plan DVT proph w/SCDs add levemir as sugars high.metformin on hold -: levaquin per primary team -: Hd stable. cont home meds and supportive care -: IM team will follow * . Review of Systems - Review of Systems Constitutional: negative: fever, chills, sweats, weakness, malaise, other Respiratory: negative: Cough, Dry, Shortness of Breath, Hemoptysis, SOB with Excertion, Pleuritic Pain, Sputum, Wheezing Cardiovascular: negative: chest pain, palpitations, orthopnea, paroxysmal nocturnal dyspnea, edema, light headedness, other Gastrointestinal: negative: Nausea, Vomiting, Abdominal Pain, Diarrhea, Constipation, Melena, Hematochezia, Other Genitourinary: negative: Dysuria, Frequency, Incontinence, Hematuria, Retention , Other Musculoskeletal: negative: Neck Pain, Shoulder Pain, Arm Pain, Back Pain, Hand Pain, Leg Pain, Foot Pain, Other Skin: negative: Rash, Lesions, Chad, Bruising, Other Neurological: negative: Weakness, Numbness, Incoordination, Change in Speech, Confusion, Seizures, Other - Medications/Allergies Allergies/Adverse Reactions: Allergies Allergy/AdvReac Type Severity Reaction Status Date / Time No Known Drug Allergies Allergy Verified 03/04/18 13:11 Medications: Current Medications Acetaminophen (Tylenol) 1,000 mg PO Q6H PRN PRN Reason: Mild Pain (1-3) Last Admin: 03/11/18 15:00 Dose: 1,000 mg Acetaminophen (Tylenol) 1,000 mg PO Q4H PRN PRN Reason: Fever > 101 Atorvastatin Calcium (Lipitor) 20 mg PO HS [facility] Last Admin: 03/11/18 20:26 Dose: 20 mg Bacitracin Zinc (Bacitracin Zinc Ointment 30 Gm Tube) 0 gm TOP BID [facility] Last Admin: 03/12/18 12:27 Dose: 1 applic Belladonna Alkaloids/Opium (B & O) 60 mg RI 0300,1100,1900 [facility] Last Admin: 03/12/18 12:25 Dose: 60 mg Benzonatate (Tessalon) 100 mg PO Q6H PRN PRN Reason: Cough Bisacodyl (Dulcolax) 10 mg PO DAILYPRN PRN PRN Reason: Constipation Clonidine (Catapres) 0.1 mg PO Q4H PRN PRN Reason: SBP >160 ____ Dextrose/Water (Dextrose 50%) 25 gm SLOW IVP PRN PRN PRN Reason: Hypoglycemia Finasteride (Proscar) 5 mg PO HS [facility] Last Admin: 03/11/18 20:26 Dose: 5 mg Glucagon (Glucagon) 1 mg IM PRN PRN PRN Reason: Hypoglycemia Guaifenesin (Robitussin Sf) 200 mg PO Q4H PRN PRN Reason: Cough Hydralazine HCl (Apresoline) 10 mg SLOW IVP Q4H PRN PRN Reason: SBP > 180 and HR < 70 Insulin Glargine 35 units/ (Miscellaneous Medication) 0.35 mls @ 0 mls/hr SC [facility] Last Admin: 03/12/18 10:14 Dose: 0.35 mls Dextrose/Water (D5w) 1,000 mls @ 0 mls/hr IV .Q0M PRN PRN Reason: Hypoglycemia Insulin Human Lispro (Humalog) 0 units SC .MODERATE SLIDING SC PRN PRN Reason: Moderate Correctional Scale Last Admin: 03/12/18 12:28 Dose: 6 unit Insulin Human Lispro (Humalog) 0 units SC .BEDTIME SLIDING SC PRN PRN Reason: Bedtime Correctional Scale Last Admin: 03/11/18 20:37 Dose: 4 unit Memantine (Namenda) 10 mg PO BID [facility] Last Admin: 03/12/18 08:01 Dose: 10 mg Metoprolol Succinate (Toprol Xl) 75 mg PO BID [facility] Last Admin: 03/12/18 08:01 Dose: 75 mg Sacubitril/Valsartan (Entresto 24.5 Mg-25.5 Mg Tablet) 1 tab PO BID [facility] Last Admin: 03/12/18 10:14 Dose: 1 tab Senna/Docusate Sodium (Senokot S) 2 tab PO BID PRN PRN Reason: Constipation Sodium Chloride ([place] Nasal [place] 0.65%) 0 ml EA NARE QIDPRN PRN PRN Reason: Nasal Congestion Sodium Chloride (Flush - Normal Saline) 10 ml IVF Q12HR ATUL Last Admin: 03/12/18 10:06 Dose: 10 ml Sodium Chloride (Flush - Normal Saline) 10 ml IVF PRN PRN PRN Reason: Saline Flush Spironolactone (Aldactone) 12.5 mg PO QAM-WM ATUL Last Admin: 03/12/18 08:00 Dose: 12.5 mg Tramadol HCl (Ultram) 50 mg PO Q6H PRN PRN Reason: Pain Last Admin: 03/11/18 15:00 Dose: 50 mg
[2018-03-12] MEDS: Finasteride 5 MG TAB PO SCH (20:45)
[2018-03-12] MEDS: Atorvastatin Calcium 20 MG TAB PO SCH (20:45)
[2018-03-13] MEDS: B & O PR SCH ×2 (02:42→13:24)
[2018-03-13] MEDS: HumaLOG 300 UNITS/3 ML VIAL SC PRN ×2 (05:29→11:29)
[2018-03-13] MEDS: Spironolactone 25 MG TAB PO SCH (08:15)
[2018-03-13] MEDS: Bacitracin Zinc Ointment 30 gm TUBE TOP SCH (08:16)
[2018-03-13] MEDS: Insulin Glargine 35 UNITS in Pre-Filled Syringe SC SCH (11:01)
[2018-03-13] MEDS: Sacubitril 24.5 MG/Valsartan 25.5 MG TABLET PO SCH (11:28)
[2018-03-13] MEDS ORDERED: Polyethylene Glycol 3350 17 GM Packet PO PRN (12:04)
[2018-03-13] MEDS ORDERED: Polyethylene Glycol 3350 17 GM Packet PO SCH (12:15)
--- NOTE | 2018-03-13 14:39 | PDOC.PN ---
- Subjective Encounter Start Date: 03/13/18 Encounter Start Time: 14:38 Subjective: feels much better.took a shower.no pain in abdomen.no blood in urine - Objective Resuscitation Status - Order Detail: 03/12/18 12:30 Resuscitation Status Routine Resuscitation Status: FULL: Full Resuscitation Discussed with: Per Notes MAR Reviewed: Yes Vital Signs & Weight: Vital Signs (12 hours) Temp Pulse Resp BP BP Pulse Ox 03/13/18 11:00 97.6 F 69 20 107/61 96 03/13/18 07:30 97.5 F L 67 22 H 111/67 97 03/13/18 04:00 97.7 F 59 L 16 106/49 L 96 Weight Weight 175 lb I&O: 03/12/18 03/13/18 03/14/18 06:59 06:59 06:59 Intake Total 1800 1510 Output Total 1600 2675 Balance 200 -1165 Result Diagrams: 03/12/18 04:49 03/12/18 04:49 Additional Labs: Accuchecks 03/13/18 03/13/18 03/12/18 10:54 05:15 21:17 POC Glucose 290 H 227 H 354 H 03/12/18 16:01 POC Glucose 270 H Phys Exam - Physical Examination Constitutional: NAD HEENT: PERRLA, moist MMs, sclera anicteric, oral pharynx no lesions Neck: no nodes, no JVD, supple, full ROM Respiratory: no wheezing, no rales, no rhonchi, clear to auscultation bilateral Cardiovascular: RRR, no significant murmur Gastrointestinal: soft, non-tender, no distention, positive bowel sounds Musculoskeletal: no edema, pulses present Neurological: non-focal, normal sensation, moves all 4 limbs Psychiatric: normal affect, A&O x 3 Skin: no rash Dx/Plan (1) Recurrent UTI (urinary tract infection) Code(s): N39.0 - URINARY TRACT INFECTION, SITE NOT SPECIFIED Status: Acute Comment: s/p TURP and cystoscopy 03/11/18 (2) S/P TURP Code(s): Z90.79 - ACQUIRED ABSENCE OF OTHER GENITAL ORGAN(S) Status: Acute (3) Chronic combined systolic and diastolic congestive heart failure Code(s): I50.42 - CHRONIC COMBINED SYSTOLIC AND DIASTOLIC HRT FAIL Status: Chronic (4) DM type 2 (diabetes mellitus, type 2) Status: Chronic Qualifiers: Comment: UNCONTROLLED (5) Dementia Code(s): F03.90 - UNSPECIFIED DEMENTIA WITHOUT BEHAVIORAL DISTURBANCE Status: Chronic (6) Dyslipidemia Code(s): E78.5 - HYPERLIPIDEMIA, UNSPECIFIED Status: Chronic (7) HTN (hypertension) Code(s): I10 - ESSENTIAL (PRIMARY) HYPERTENSION Status: Chronic Qualifiers: - Plan respiratory therapy, incentive spirometry, out of bed/ambulate, DVT proph w/SCDs Add night time coverage w lantus.blood sugar still very high.cont am lantus -: ISS w accuchecks. -: BP controlled. cont home meds -: HD stable. -: OK to DC from IM stand point.will follow if stays in house * . Review of Systems - Review of Systems Constitutional: negative: fever, chills, sweats, weakness, malaise, other ENT: negative: Ear Pain, Ear Discharge, Nose Pain, Nose Discharge, Nose Congestion, Mouth Pain, Mouth Swelling, Throat Pain, Throat Swelling, Other Respiratory: negative: Cough, Dry, Shortness of Breath, Hemoptysis, SOB with Excertion, Pleuritic Pain, Sputum, Wheezing Cardiovascular: negative: chest pain, palpitations, orthopnea, paroxysmal nocturnal dyspnea, edema, light headedness, other Gastrointestinal: negative: Nausea, Vomiting, Abdominal Pain, Diarrhea, Constipation, Melena, Hematochezia, Other Genitourinary: negative: Dysuria, Frequency, Incontinence, Hematuria, Retention , Other Musculoskeletal: negative: Neck Pain, Shoulder Pain, Arm Pain, Back Pain, Hand Pain, Leg Pain, Foot Pain, Other Neurological: negative: Weakness, Numbness, Incoordination, Change in Speech, Confusion, Seizures, Other - Medications/Allergies Allergies/Adverse Reactions: Allergies Allergy/AdvReac Type Severity Reaction Status Date / Time No Known Drug Allergies Allergy Verified 03/04/18 13:11 Medications: Current Medications Acetaminophen (Tylenol) 1,000 mg PO Q6H PRN PRN Reason: Mild Pain (1-3) Last Admin: 03/11/18 15:00 Dose: 1,000 mg Acetaminophen (Tylenol) 1,000 mg PO Q4H PRN PRN Reason: Fever > 101 Atorvastatin Calcium (Lipitor) 20 mg PO HS ATUL Last Admin: 03/12/18 20:45 Dose: 20 mg Bacitracin Zinc (Bacitracin Zinc Ointment 30 Gm Tube) 0 gm TOP BID [facility] Last Admin: 03/13/18 08:16 Dose: 1 applic Benzonatate (Tessalon) 100 mg PO Q6H PRN PRN Reason: Cough Bisacodyl (Dulcolax) 10 mg PO DAILYPRN PRN PRN Reason: Constipation Last Admin: 03/13/18 11:33 Dose: 10 mg Clonidine (Catapres) 0.1 mg PO Q4H PRN PRN Reason: SBP >160 ____ Dextrose/Water (Dextrose 50%) 25 gm SLOW IVP PRN PRN PRN Reason: Hypoglycemia Finasteride (Proscar) 5 mg PO [facility] Last Admin: 03/12/18 20:45 Dose: 5 mg Glucagon (Glucagon) 1 mg IM PRN PRN PRN Reason: Hypoglycemia Guaifenesin (Robitussin Sf) 200 mg PO Q4H PRN PRN Reason: Cough Hydralazine HCl (Apresoline) 10 mg SLOW IVP Q4H PRN PRN Reason: SBP > 180 and HR < 70 Insulin Glargine 35 units/ (Miscellaneous Medication) 0.35 mls @ 0 mls/hr [facility] Last Admin: 03/13/18 11:01 Dose: 0.35 mls Dextrose/Water (D5w) 1,000 mls @ 0 mls/hr IV .Q0M PRN PRN Reason: Hypoglycemia Insulin Glargine 10 units/ (Miscellaneous Medication) 0.1 mls @ 0 mls/hr SC [facility] Insulin Human Lispro (Humalog) 0 units SC .MODERATE SLIDING SC PRN PRN Reason: Moderate Correctional Scale Last Admin: 03/13/18 11:29 Dose: 6 unit Insulin Human Lispro (Humalog) 0 units SC .BEDTIME SLIDING SC PRN PRN Reason: Bedtime Correctional Scale Last Admin: 03/11/18 20:37 Dose: 4 unit Memantine (Namenda) 10 mg PO BID [facility] Last Admin: 03/13/18 08:15 Dose: 10 mg Metoprolol Succinate (Toprol Xl) 75 mg PO BID [facility] Last Admin: 03/13/18 08:15 Dose: 75 mg Polyethylene Glycol (Miralax) 17 gm PO DAILYPRN PRN PRN Reason: Constipation Polyethylene Glycol (Miralax) 17 gm PO 1215 [facility] Stop: 03/13/18 15:00 Last Admin: 03/13/18 13:24 Dose: Not Given Sacubitril/Valsartan (Entresto 24.5 Mg-25.5 Mg Tablet) 1 tab PO BID [facility] Last Admin: 03/13/18 11:28 Dose: 1 tab Senna/Docusate Sodium (Senokot S) 2 tab PO BID PRN PRN Reason: Constipation Sodium Chloride ([place] Nasal [place] 0.65%) 0 ml EA NARE QIDPRN PRN PRN Reason: Nasal Congestion Sodium Chloride (Flush - Normal Saline) 10 ml IVF Q12HR [facility] Last Admin: 03/13/18 08:16 Dose: 10 ml Sodium Chloride (Flush - Normal Saline) 10 ml IVF PRN PRN PRN Reason: Saline Flush Spironolactone (Aldactone) 12.5 mg PO QAM-WM [facility] Last Admin: 03/13/18 08:15 Dose: 12.5 mg Tramadol HCl (Ultram) 50 mg PO Q6H PRN PRN Reason: Pain Last Admin: 03/11/18 15:00 Dose: 50 mg
[2018-03-13 15:55] VITALS: BP 129/53; TEMP 97.2
[2018-03-13] MEDS ORDERED: Insulin Glargine 10 UNITS in Pre-Filled Syringe 1 EACH SC SCH (21:00)
== END 2018-03-13 16:29 | disposition home or self-care (01) ==
LOC: SDC 07:10 → SURG A 11:33
PROVIDERS: ADMIT Urology; ATTEND Urology
PROC: 0VT08ZZ Resection of Prostate, Via Natural or Artificial Opening Endoscopic (ICD-10-PCS; principal; 2018-03-11)
PROC: 0VNTXZZ Release Prepuce, External Approach (ICD-10-PCS; 2018-03-11)
DX: N41.0 Acute prostatitis (principal); N41.1 Chronic prostatitis; N40.0 Benign prostatic hyperplasia without lower urinary tract symptoms; N47.1 Phimosis; N32.0 Bladder-neck obstruction; N42.0 Calculus of prostate; N39.0 Urinary tract infection, site not specified; I11.0 Hypertensive heart disease with heart failure; I50.42 Chronic combined systolic (congestive) and diastolic (congestive) heart failure; E11.9 Type 2 diabetes mellitus without complications; F03.90 Unspecified dementia, unspecified severity, without behavioral disturbance, psychotic disturbance, mood disturbance, and anxiety; E78.5 Hyperlipidemia, unspecified; Z79.2 Long term (current) use of antibiotics; Z79.4 Long term (current) use of insulin; Z79.82 Long term (current) use of aspirin; Z79.899 Other long term (current) drug therapy
CPT/HCPCS: 51798; 52601; 54001; 80048; 82962 ×3; 85025; 85610; 85730; 88305; 96365; 96375; G0378 ×2; 36415; 36416; 96374; J1100; J1956; J2001; J2405; J2704; J3010

== ENCOUNTER 2018-03-18 19:49 | Inpatient (IN) | payer MEDICARE, BC ==
[~2018-03-18 19:49] MED LIST changes: -Dexamethasone 20 MG/5 ML VIAL ONE; +ISOVUE-370 76%-LOCM 1 ML ONE; -Lidocaine 1% PF 5 ML VIAL ONE; -Ondansetron HCl/PF 4 MG/2 ML Vial ONE; -PHENYLEPHRINE-NS 100 MCG/ML 10 ML SYRINGE ONE; -PROPOFOL 200 MG/20 ML VIAL ONE
[2018-03-18 20:42] LABS: #Eosinphils 0.2 thou/uL (0.0-0.7); #Lymphocytes 2.1 thou/uL (1.20-3.40); #Monocytes 1.4 thou/uL (0.11-0.59); %Basophils 0.4 % (0.0-1.0); %Eosinophils 1.4 % (0.0-10.0); %Lymphocytes 16.3 % (21.0-51.0); %Monocytes 11.2 % (0.0-10.0); %Neutrophils 70.7 % (42.0-75.0); Hemoglobin 12.2 g/dL (14.0-18.0); Mean Corpuscular HGB CONC 32.9 g/dL (32.0-36.0); Mean Corpuscular Hemoglobin 28.6 pg (27.0-31.0); Mean Corpuscular Volume 86.7 fL (78.0-98.0); Mean Platelet Volume 6.6 fL (7.4-10.4); Platelet Count 363 thou/uL (130-400); RBC Distribution Width 13.3 % (11.5-14.5); Red Blood Cell (RBC) Count 4.27 mill/uL (4.70-6.10); White Blood Cell (WBC) Count 12.7 thou/uL (4.8-10.8)
[2018-03-18 21:02] LABS: Bilirubin Negative (Negative); Blood, Urine Large (Negative); Clarity TURBID (Clear); Glucose, Urine (Dipstick) 100 mg/dL (Negative); Leukocyte Large (Negative); Nitrite Negative (Negative); Protein, Urine (Dipstick) 300 mg/dL (Neg-Trace); Specific Gravity, Urine 1.017 (1.002-1.036); Urobilinogen 0.2 mg/dL (0.2-1.0); pH, Urine 5.5 (5.0-9.0)
[2018-03-18 21:04] LABS: Squamous Epithelial 0-3 HPF (0-3)
[2018-03-18 21:05] LABS: ALT (SGPT) 7 U/L (8-55); AST (SGOT) 9 U/L (5-34); Albumin 3.2 g/dL (3.4-4.8); Alkaline Phosphatase 81 U/L (40-150); Anion Gap 17 mmol/L (10-20); BUN (Urea Nitrogen) 25 mg/dL (8.4-25.7); Bilirubin, Total 0.9 mg/dL (0.2-1.2); CK (CPK) 23 U/L (30-200); Calc. Creatinine Clearance 0 mL/min (70-130); Calcium 9.3 mg/dL (7.8-10.44); Carbon Dioxide 23 mmol/L (23-31); Chloride 97 mmol/L (98-107); Estimated GFR-MDRD 51; Globulin 3.7 g/dL (2.4-3.5); Glucose 215 mg/dL (83-110); Lipase 10 U/L (8-78); Potassium 3.6 mmol/L (3.5-5.1); Protein, Total 6.9 g/dL (5.8-8.1); Sodium 133 mmol/L (136-145)
[2018-03-18 21:05] LABS: Pathc Cast-AUWi Flag 726.76 (0-2.49); Yeast-AUWi Flag 613.2 (0-25.0)
[2018-03-18 21:06] LABS: CKMB 0.9 ng/mL (0-6.6); Troponin I Less than 0.010 ng/mL (< 0.028)
[2018-03-18 21:15] LABS: RBC/HPF GREATER THAN 50-TNTC HPF (0-3)
[2018-03-18 21:16] LABS: Bacteria/HPF 2+ HPF (None Seen)
[2018-03-18 21:17] LABS: Hyaline Casts/LPF NONE SEEN LPF (0-3 Hyaline); Yeast-All Forms 2+ HPF (None Seen)
--- NOTE | 2018-03-18 21:22 | RAD ---
PORTABLE CHEST: HISTORY: Fever. Chills. COMPARISON: 01/04/2018 FINDINGS: The heart size is within normal limits. An internal defibrillator device is present. The lungs are clear of infiltrates. There are no signs of failure. IMPRESSION: No active intrathoracic disease. POS: [facility]
--- NOTE | 2018-03-18 21:41 | CT ---
CT ANGIO CHEST PERFORMED WITH INTRAVENOUS CONTRAST ENHANCEMENT AND 3D RECONSTRUCTIONS: HISTORY: Elevated D-dimer. History of prostate surgery last week. FINDINGS: There are some pneumonitis type changes within the right upper lobe. The lungs are otherwise clear. There is minimal atelectasis in the lung bases. No pleural effusions. The thoracic aorta is normal in caliber. There is good pulmonary arterial opacification. There is no CT evidence for pulmonary embolus. The visualized liver parenchyma is unremarkable. A gallstones is noted. The right and left adrenal glands are unremarkable. IMPRESSION: 1. Some minimal pneumonitis change, suggesting some early infiltrate in the right upper lobe, possib ly an area of scar. 2. No CT evidence for pulmonary embolus. 3. Gallstone. POS: [facility]
[2018-03-18] MEDS ORDERED: Cefepime 2 GM VIAL ONE (21:52)
[2018-03-19 00:10] LABS: Troponin I Less than 0.010 ng/mL (< 0.028)
[2018-03-19 01:21] VITALS: BMI 25.7
[2018-03-19] MEDS ORDERED: Sodium Chloride 0.9% 1,000 ML IV SCH ×2 (01:21→04:15)
[2018-03-19] MEDS ORDERED: Ondansetron ODT 4 MG TAB SL PRN (01:21)
[2018-03-19] MEDS ORDERED: Ondansetron PF 4 MG/2 ML Vial IVP PRN (01:21)
[2018-03-19] MEDS ORDERED: Acetaminophen 325 MG TAB PO PRN (01:21)
[2018-03-19] MEDS ORDERED: HYDROcodone/Acetaminophen 5/325 mg Tablet PO PRN ×2 (01:21)
[2018-03-19 03:01] LABS: Lactic Acid 2.9 mmol/L (0.5-2.2)
[2018-03-19 03:09] LABS: Troponin I Less than 0.010 ng/mL (< 0.028)
[2018-03-19] MEDS ORDERED: Bisacodyl 5 MG TAB PO PRN (04:09)
[2018-03-19] MEDS ORDERED: Senokot S 8.6-50 MG TAB PO PRN (04:09)
[2018-03-19] MEDS ORDERED: traMADol HCl 50 MG TAB PO PRN (04:13)
[2018-03-19] MEDS ORDERED: HumaLOG 300 UNITS/3 ML VIAL SC PRN (04:15)
[2018-03-19] MEDS ORDERED: Dextrose 5% in Water 1,000 ML IV PRN ×2 (04:15→11:36)
[2018-03-19] MEDS ORDERED: Dextrose 50% Abboject 50 ML SYRINGE SLOW IVP PRN ×2 (04:15→11:36)
[2018-03-19] MEDS ORDERED: Piperacillin/Tazobactam 3.375 GM in Sodium Chloride 0.9% 100 ML IVPB SCH (06:00)
[2018-03-19 06:35] LABS: Anion Gap 13 mmol/L (10-20); BUN (Urea Nitrogen) 23 mg/dL (8.4-25.7); Calc. Creatinine Clearance 65 mL/min (70-130); Calcium 8.7 mg/dL (7.8-10.44); Carbon Dioxide 24 mmol/L (23-31); Chloride 103 mmol/L (98-107); Estimated GFR-MDRD 66; Glucose 76 mg/dL (83-110); Phosphorus 2.3 mg/dL (2.3-4.7); Sodium 137 mmol/L (136-145)
[2018-03-19 06:37] LABS: Potassium 2.9 mmol/L (3.5-5.1)
[2018-03-19] MEDS ORDERED: Famotidine 20 MG TAB PO SCH (09:00)
[2018-03-19] MEDS ORDERED: Prevnar 13-Val Conj/PF 0.5 ML SYRINGE IM ONE (09:00)
[2018-03-19] MEDS ORDERED: Non-Formulary Item 1 EACH (Levemir Flexpen [Levemir Flexpen] 35 UNITS) SC SCH (09:00)
[2018-03-19] MEDS ORDERED: Famotidine/PF 20 mg/2ml Vial SLOW IVP SCH (09:00)
[2018-03-19] MEDS ORDERED: Potassium Chloride 20 MEQ TAB PO SCH (11:15)
[2018-03-19] MEDS ORDERED: hydrALAZINE 20 MG/ML VIAL SLOW IVP PRN (11:36)
[2018-03-19] MEDS ORDERED: Acetaminophen 500 MG TAB PO PRN (11:36)
[2018-03-19] MEDS: Enoxaparin Sodium 30 MG/0.3 ML SYRINGE SC SCH (12:43)
[2018-03-19] MEDS: Aspirin 325 MG TAB PO SCH (12:43)
[2018-03-19] MEDS: Insulin Glargine 35 UNITS in Pre-Filled Syringe 1 EACH SC SCH (12:44)
[2018-03-19] MEDS: Sacubitril 24.5 MG/Valsartan 25.5 MG TABLET PO SCH ×2 (12:54→22:06)
[2018-03-19] MEDS ORDERED: Magnesium 2 GM/50 ML 2 GM in Premix Bag 1 BAG IVPB SCH (15:15)
[2018-03-19] MEDS: cefTRIAXone\\ROCEPHIN 2 GM in Sodium Chloride 0.9% 100 ML IVPB SCH (16:05)
[2018-03-19] MEDS: Sodium Chloride 0.9% 1,000 ML IV SCH (16:05)
[2018-03-19] MEDS: Vancomycin HCl 1.25 GM in Sodium Chloride 0.9% 250 ML 300 ML IVPB SCH (17:37)
--- NOTE | 2018-03-19 19:17 | HP ---
PRIMARY CARE PROVIDER: Dr. Jakub Varghese. PRIMARY ANNEALING OVEN OPERATOR: Dr. Briones. PRIMARY UROLOGIST: Dr. Gerry Kamara. CHIEF COMPLAINT: General weakness and chills. HISTORY OF PRESENT ILLNESS: This is a 77-year-old male, who presents to [facility] Emergency Department with 1- to 2-day history of increasing weakness and chills without documented fever. The patient is status post recent prostate reconstruction, apparently discharged home approximately 1 week prior to this evaluation. The patient was given ciprofloxacin, which he has been taking twice daily and had been doing well, ambulating, tolerating regular oral intake and voiding appropriately. The patient's family noted that the patient was not as energetic, appearing weak and complained of chills. No reported history of shortness of breath, chest pain, jaw discomfort, or unilateral weakness. No visual disturbance, recent fall or injury, and the patient states he had been ambulatory without the use of assistive device. In the emergency room, the patient underwent general evaluation with multiple criteria for sepsis noted. The patient's urine sample was suspicious for infection, at which point due to sepsis criteria, the patient was placed on broad-spectrum IV antibiotic therapy to include cefepime, Levaquin, and vancomycin in addition to fluid resuscitation with intravenous normal saline. The patient stabilized, however, was noted on telemetry monitoring with atrial flutter with variable AV block. The patient was transferred to the telemetry unit for further evaluation. PAST MEDICAL HISTORY: 1. Question of chronic atrial flutter with variable AV block. 2. Question of nonsustained ventricular tachycardia, status post pacemaker/defibrillator placement. 3. Recurrent urinary tract infections, necessitating prostate resection. 4. Diabetes mellitus, type 2, insulin requiring. 5. Benign prostatic hypertrophy, status post resection. 6. Hyperlipidemia. 7. Early dementia. PAST SURGICAL HISTORY: 1. Status post amputation of the left first and second toes. 2. Status post left orchiectomy. 3. Status post right hand skin graft. 4. Status post prostatectomy with dorsal slit on 03/11/2018. CURRENT MEDICATIONS: 1. Aspirin 325 mg p.o. daily. 2. Lipitor 20 mg p.o. at bedtime. 3. Finasteride 5 mg p.o. at bedtime. 4. Levemir 35 units subcutaneously q.a.m. 5. Namenda 10 mg p.o. b.i.d. 6. Metformin 1000 mg p.o. b.i.d. 7. Metoprolol succinate 50 mg [id number]-half tabs p.o. b.i.d. 8. Myrbetriq 25 mg p.o. q.a.m. 9. Entresto 24/26 mg one tab p.o. b.i.d. 10. Spironolactone 12.5 mg p.o. q.a.m. ALLERGIES: NO KNOWN DRUG ALLERGIES. FAMILY HISTORY: Father with myocardial infarction and lymphoma in his mother. SOCIAL HISTORY: The patient resides near [place], [place]. No current alcohol, tobacco, or illicit drug use. , accompanied by his family in the hospital. Ambulates without the use of assistive device. REVIEW OF SYSTEMS: CONSTITUTIONAL: Negative for weight loss or gain, ability to conduct usual activities. SKIN: Negative for rash, itching. EYES: Negative for double vision, pain. ENT/MOUTH: Negative for nose bleeding, neck stiffness, pain, tenderness. CARDIOVASCULAR: Negative for palpitations, dyspnea on exertion, orthopnea. RESPIRATORY: Negative for shortness of breath, wheezing, cough, hemoptysis, fever or night sweats. GASTROINTESTINAL: Negative for poor appetite, abdominal pain, heartburn, nausea, vomiting, constipation, or diarrhea. GENITOURINARY: Negative for urgency, frequency, dysuria, nocturia. MUSCULOSKELETAL: Negative for pain, swelling. NEUROLOGIC/PSYCHIATRIC: Negative for anxiety, depression. ALLERGY/IMMUNOLOGIC: Negative for skin rash, bleeding tendency. Otherwise negative except as stated per HPI. PHYSICAL EXAMINATION: VITAL SIGNS: Currently, blood pressure 106/55, pulse 96, respiratory rate 18, temperature 97.9 degrees Fahrenheit, and O2 saturation 99% on room air. GENERAL APPEARANCE: This is a 77-year-old male, alert and oriented x3, pleasant and responsive, in no acute distress. HEENT: Pupils are equal, round, reactive to light and accommodation. Extraocular muscles are intact. No scleral icterus. No conjunctival injection. Nares patent. OP is clear. Teeth in fair repair. NECK: Supple. No cervical adenopathy. No thyromegaly. No carotid bruits. No JVD appreciated. Cervical spine with full active and passive range of motion. No meningeal signs appreciated. CHEST: Lungs are clear to auscultation bilaterally. CARDIOVASCULAR: S1, S2 with tachycardia. Left upper chest wall with subcutaneus AICD device in place. ABDOMEN: Rounded, soft, nontender, nondistended. Bowel sounds are positive in all four quadrants. No hepatosplenomegaly. No abdominal bruits. No rebound or guarding appreciated. EXTREMITIES: Warm and dry with fair turgor. No clubbing, cyanosis, or asymmetric edema appreciated. Pulses are palpable distally at the dorsalis pedis, posterior tibial, and popliteal arteries bilaterally. Capillary refill is less than 2 seconds. Postsurgical changes noted on the left foot including amputation of the first and second toes. GENITOURINARY: Postsurgical changes noted at the dorsal aspect of the penis consistent with prior surgical intervention. Mild edema in the groin region noted. NEUROLOGIC: Cranial nerves 2 through 12 are grossly intact. No focal or lateralizing signs appreciated. PERTINENT LAB AND X-RAY FINDINGS: Sodium 137, potassium 2.9, chloride 103, CO2 of 24, BUN 23, creatinine 1.08, estimated GFR of 66, glucose 76, calcium 8.7. Lactic acid level ranged between 2.9 to 5.1, phosphorus 2.3, and magnesium level 1.2. Troponin I negative x3. BNP 254. CBC showed a white blood cell count of 12.7, hemoglobin 12, hematocrit 37, and platelet count 363 with 71% neutrophils. Urinalysis showed large blood, positive glucose and proteins with large leukocyte esterase with greater than 50 to [id number]-count rbc's and wbc's per high-power field. 2+ bacteria noted. Influenza A and B antigen dated 03/18/[address] angiogram of the chest dated 03/18/2018 showed minimal atelectasis in the right upper lobe, possibly scar. No evidence for pulmonary embolus. Portable chest x-ray dated 03/18/2018 showed no acute cardiopulmonary process. EKG dated 03/18/2018 by my interpretation shows atrial flutter with variable AV block with heart rates in the 80s. ASSESSMENT AND PLAN: 1. Sepsis. The patient will be admitted to the telemetry unit. Suspected urinary tract source given patient's recent surgical intervention and prostatectomy. Continue vancomycin 1.25 g IV q.12 hours with additional Rocephin 2 g IV q.24 hours. Blood and urine cultures pending. Continue intravenous normal saline at 75 mL/hr. 2. Urinary tract infection. Suspected given recent surgical intervention and transurethral resection of the prostate. See #1 above. Consult Urology Service for any further recommendations. 3. Atrial flutter. Variable AV block noted on EKG and telemetry monitoring. Appears chronic in nature. We will consult Cardiology and Electrophysiology Service for any further recommendations and intervention. Currently, rate controlled. Resume home regimen of metoprolol. 4. Acute kidney injury. Suspect secondary to the #1. We will avoid nephrotoxic agents and limit contrast exposure. Continue IV fluids as outlined previously. Repeat creatinine in the a.m. 5. Diabetes mellitus, type 2, insulin requiring. Continue insulin sliding scale for reflexive coverage. Resume long-acting Lantus. ADA diet. 6. Deconditioning. We will obtain PT evaluation for functional assessment. General fall risk precautions. 7. Prophylaxis. SCDs while in bed. Pepcid 20 mg p.o. b.i.d. 8. Code status, full. Surrogate medical decision maker is the patient's spouse. Job ID: [id number]
--- NOTE | 2018-03-19 19:47 | CON ---
DATE OF CONSULTATION: 03/19/2018 CARDIOLOGY CONSULTATION REASON FOR CONSULTATION: Atrial flutter. HISTORY OF PRESENT ILLNESS: Mr. Coronado is a pleasant 77-year-old black gentleman, who is well known to myself, who comes to the hospital for not feeling well, just feeling weak. He had surgery on his prostate recently, apparently some sort of reconstructive surgery of the prostate. Looking back at his records, Dr. Kamara on the February, just about the week ago, performed a cystoscopy and a transurethral resection of the prostate and the dorsal slit secondary to severe phimosis. He comes in with septic type symptoms. On EKG, he was found to be in an atrial flutter, so Cardiology is being consulted. He has never been in an atrial flutter. He does have a history of ischemic cardiomyopathy with nonrevascularizable coronary artery disease. His last evaluation of EF showed an EF of about 50% to 55%. He was in atrial flutter at that time with moderate MR. He has an AICD in place, single chamber, secondary to inducible VT with a moderately reduced EF. He was admitted and diagnosed with recurrent urinary tract infection. PAST MEDICAL HISTORY: 1. Severe diffuse coronary artery disease. 2. Chronic systolic heart failure. 3. AICD placement secondary to the inducible and sustained VT. 4. BPH. 5. Hypertension. 6. Hyperlipidemia. 7. Alzheimer's dementia. 8. Type 2 diabetes. 9. Peripheral vascular disease. PAST SURGICAL HISTORY: 1. Left orchiectomy. 2. TURP and repair of phimosis just a week ago. 3. Left carotid endarterectomy by Dr. Zhang. 4. Amputation of the first and second toe of the left foot. 5. Incision and drainage of left inguinal abscess. 6. Skin grafting of the right hand. SOCIAL HISTORY: No alcohol, tobacco, or drugs. FAMILY HISTORY: Father with an VA, otherwise unremarkable. OUTPATIENT MEDICATIONS: Include; 1. Aspirin 325 a day. 2. Lipitor. 3. Finasteride. 4. Levemir. 5. Namenda. 6. Metformin. 7. Metoprolol 75 mg b.i.d. 8. Mirabegron. 9. Entresto. 10. Aldactone 12.5 mg b.i.d. 11. Flomax 0.4 mg a day. ALLERGIES: NO KNOWN DRUG ALLERGIES. REVIEW OF SYSTEMS: A 12-point review of systems was done and it was negative other than those stated in the history of present illness. PHYSICAL EXAMINATION: VITAL SIGNS: Temperature 98.0, pulse 82, respiratory rate 18, saturating 97% on room air, and blood pressure 150/55. GENERAL: Awake, alert, and oriented x3, in no distress. HEENT: Normocephalic and atraumatic. NECK: Supple. LUNGS: Clear. CARDIOVASCULAR: S1 and S2. No S3 or S4. No murmurs. ABDOMEN: Soft. Positive bowel sounds. EXTREMITIES: No edema. SKIN: Warm and dry. LABORATORY DATA: Laboratory work shows a white count of 12, hemoglobin of 12, hematocrit of 37, platelet count of 363. Coags, D-dimer was a little bit high. Sodium 137, potassium was low at 2.9, normal BUN and creatinine, magnesium was 1.2, and albumin was 3.0. UA; 300 protein, 200 glucose, large blood, greater than 50 red cells, greater than 50 white cells, 2+ bacteria, and 2+ urine yeast. EKGs were reviewed. Telemetry was reviewed. ASSESSMENT AND PLAN: 1. Atrial flutter. I agree with EP evaluation, this is best treated with an ablation. We would wait 1 or 2 days until his infection is better controlled; if this is even an infection or just a consequence of the recent instrumentation of the urethra. 2. We would continue home medications for now. 3. Currently rate controlled. Thank you for letting me to participate in the care of your patient. We will follow. Job ID: [id number]
--- NOTE | 2018-03-19 21:47 | CON ---
DATE OF CONSULTATION: 03/19/2018 ELECTROPHYSIOLOGY CONSULTATION REASON FOR CONSULTATION: Atrial flutter. HISTORY OF PRESENT ILLNESS: Mr. Coronado is a patient known to our practice for history of cardiomyopathy and non-sustained ventricular tachycardia and inclusion of a single-chamber ICD that was placed in 2015 after being found inducible for ventricular tachycardia during EP study. He regularly follows with our clinic and has not had any additional arrhythmia issues other than extremely low burden non-sustained ventricular tachycardia, which he has been asymptomatic of. He was last seen in May at which time, he was in normal sinus rhythm and he had a normal functioning single chamber device. Currently, Mr. Coronado presents to the emergency room with his , who largely acts as his decision maker. He was having chills and weakness that began today. He denies any fevers. He had a prostate reconstruction on Sunday and went home on Sunday. A 12-lead EKG was done and he was found to be in atrial flutter, which by record review was diagnosed in December while he was hospitalized for urinary tract infection and sepsis. At that time, he was admitted in sinus rhythm, discharged in rate controlled atrial flutter, but was not on anticoagulation. He is currently not on anticoagulation. He is now admitted for further treatment regarding his atrial flutter, urinary tract infection with questionable sepsis, recent prostatectomy as well as possible right upper lobe pneumonitis. Mr. Coronado is currently resting in bed comfortably. His unfortunately was not present during the consultation. He currently does not have any cardiac concerns or complaints. He denies any pain. He is feeling quite comfortable at this time. He does not recall why he came to the hospital. He does have baseline dementia. He is pleasant and pleasantly disoriented. REVIEW OF SYSTEMS: A 12-point review of systems was conducted and is negative except that listed above in the HPI. He denies any heart racing, palpitation, chest pain, pressure, syncope, near syncope, stroke or stroke-like symptoms. PAST MEDICAL HISTORY: 1. Left ventricular ejection fraction is low at 30% to 35%, but most recently 50%. 2. Type 2 diabetes. 3. Hypertension. 4. Coronary artery disease. 5. Aortic valve calcification. 6. Dementia. 7. Carotid artery stenosis, status post carotid endarterectomy in 2017. 8. Single-chamber ICD implanted on 08/13/2015 following EP study, where he was inducible for ventricular tachycardia. 9. Prostate surgery, 03/11/2018. ALLERGIES: NO KNOWN DRUG ALLERGIES. HOME MEDICATIONS: 1. Levemir FlexPen 35 units subcu q.a.m. 2. Finasteride 5 mg p.o. at bedtime. 3. Lipitor 20 mg p.o. at bedtime. 4. Entresto 24/26 mg p.o. b.i.d. 5. Myrbetriq 25 mg p.o. q.a.m. 6. Metoprolol 75 mg p.o. b.i.d. 7. Namenda 10 mg p.o. b.i.d. 8. Metformin 1000 mg p.o. b.i.d. 9. Aldactone 12.5 mg daily. 10. Aspirin 325 mg daily. SOCIAL HISTORY: Underlying dementia. Lives with his . FAMILY HISTORY: Negative for sudden cardiac and negative for early onset coronary artery disease. PHYSICAL EXAMINATION: VITAL SIGNS: Temperature 97.8, pulse 95, respirations 18, oxygen 98% on room air, blood pressure 132/58. GENERAL: Mr. Coronado is a well-nourished, well-groomed, disoriented elderly gentleman, who is in no apparent distress. He is oriented to time, person, and understands that he is in a hospital. NECK: Supple without jugular venous distention. His thyroid is nonpalpable. CARDIAC: His heart rate is mostly regular with some occasional ectopy heard with a controlled ventricular rate. No obvious murmur, rub, or gallop is appreciated. His PMI is nondisplaced. LUNGS: Clear to auscultation bilaterally. Respirations are even and unlabored. ABDOMEN: Soft and nontender. EXTREMITIES: Warm and dry to touch without clubbing, cyanosis, or edema. NEUROLOGIC: Grossly intact and nonfocal underlying dementia, and gait was not assessed. DATABASE: WBC 12.7, hemoglobin 12.2, hematocrit 37, platelet count 363. Chemistry, potassium 2.9, creatinine 1.08, magnesium 1.2. Urinalysis positive for blood, protein, glucose, leukocytes, and currently pending for culture. Chest x-ray, no active intrathoracic disease. Internal defibrillator is seen. Chest/thorax CTA, minimal pneumonitis change suggesting some early infiltrate in the right upper lobe, possibly an area of scar, no pulmonary embolus. Positive for gallstone. Telemetry and EKG were personally reviewed and reflect likely typical atrial flutter with a controlled ventricular response and occasional variable AV conduction, but mostly 2:1. IMPRESSION: 1. Typical atrial flutter diagnosed in December 2017, likely ongoing since that time. 2. Chronic systolic congestive heart failure with a reduced LV ejection fraction previously at 30% to 35%, now 50%. 3. Urinary tract infection, culture pending, recurrent from December. 4. Hypokalemia, currently 2.9. 5. Hypomagnesemia, currently 1.2. 6. [employer]onic single-chamber ICD. 7. History of nonsustained ventricular tachycardia, inducible for ventricular tachycardia during EP study in 2015. PLAN AND RECOMMENDATIONS: 1. Begin anticoagulation with therapeutically dosed Lovenox. He will require oral anticoagulation later, but continue with higher dose Lovenox at this time. 2. Continue medical treatment and antibiotics for UTI. 3. Replace electrolyte imbalances for a goal potassium of 4 and magnesium of 2. 4. Plan for a ARMANDO and CTI ablation once medically stable, possibly afternoon. This was discussed with the patient and unfortunately, his was not present. We will come back later today and re-discuss this with her when she is available. We discussed various treatment options including medical management and ablation. We will reevaluate him tomorrow. Thank you for allowing us to participate in the care of this patient. Job ID: [id number]
[2018-03-19] MEDS: Famotidine 20 MG TAB PO SCH (22:06)
[2018-03-19] MEDS: Atorvastatin Calcium 20 MG TAB PO SCH (22:06)
[2018-03-19] MEDS: Finasteride 5 MG TAB PO SCH (22:06)
[2018-03-19] MEDS: Tamsulosin HCl 0.4 MG CAP PO SCH (22:06)
--- NOTE | 2018-03-19 23:07 | CON ---
DATE OF CONSULTATION: 03/19/2018 HISTORY OF PRESENT ILLNESS: This is a 77-year-old white male, who I saw today, the March. I saw him for febrile UTI. This patient has a somewhat complicated urologic history that started back when I initially saw him in May of 2017. At that point, he had a left epididymo-orchitis that actually required orchiectomy to be done. He had this done, it seemed to have healed up adequately, it was done on the 09 of June. His pathology from this grew out a group B strep. It seemed to heal up okay after this, but then he, I think developed a problem with the left groin abscess; I think it also required drainage, that was drained, and that was in October of 2017. It grew out Lactobacillus and a Mi species. He then developed in December of 2017 yeast in the urine and then he began developing urinary tract infections, the most recent one was pseudomonas. He had evaluation for these recurrent infections in October of this year. He had a CT scan with and without IV contrast and this was done at the [facility] and this showed no evidence of renal calculi or any sign of renal mass, or filling defect in the collecting system. He did have a gallstone. He had a cystoscopic exam done that showed no stricture disease, no abnormalities of the urinary bladder and a large lateral lobe hypertrophy. Because of his recurrent urinary tract and reproductive infections without an obvious or correctable source on his CAT scan such as a stone or diverticulum, we talked with him about considering a TURP for his prostate. Because he had had another febrile infection in December of this year, he elected to proceed with this in about a week ago , he had a cysto and a transurethral resection of the prostate. He had numerous prostatic stones that were also removed. At that point, he had had pseudomonas species growing in the urine and he has been treated with quinolone antibiotics, which covered and he went home on them. Currently, he is still on Cipro and when yesterday, he developed chills and feeling very poorly, he was brought back to the hospital here and admitted. His white count yesterday was 12.7, hemoglobin 12.2, his creatinine was 1.08, his potassium is low, his lactic acid was slightly elevated at 2.9. He had blood and urine cultures done and he was started on Rocephin. It looks like he also had received cefepime in the Emergency Center yesterday; and also piperacillin/tazobactam, I think he received that in the emergency room yesterday as well as vancomycin. Again, his microbiology from the time of his TURP showed pseudomonas that was actually intermediately sensitive to the cefepime and the ceftazidime and the piperacillin/tazobactam. It was sensitive to Cipro, which he was on and got sick on. Currently, his vital signs actually have been stable, he has not had a high fever. He does not have any chills since he started on the antibiotics. His O2 sats have been good and his blood pressure has not been low. PAST MEDICAL HISTORY: His other medical history is significant for diabetes, coronary artery disease, history of myocardial infarction, hypertension, hyperlipidemia, the beginning of Alzheimer's dementia, and peripheral vascular disease. PAST SURGICAL HISTORY: Includes the most recently TURP; also includes a left orchiectomy. He has had left carotid endarterectomy. He has had some amputations of his toes. He has had drainage of the left inguinal abscess. SOCIAL HISTORY: He does not smoke. He does not drink. ALLERGIES: HE HAS NO KNOWN DRUG ALLERGIES. MEDICATIONS: His routine medicines are well documented. PHYSICAL EXAMINATION: ABDOMEN: Currently soft and nontender. Tong catheter is not in place currently and he has been voiding okay. He does have some frequency and urgency, but no dysuria. He has had some blood off and on since his surgery, but that is expected in just a week out. GENITOURINARY: His penis is without lesion. He did have a dorsal slit done at the time of transurethral resection of the prostate because of very tight phimosis, and this appears to be healing well. There is no evidence of any cellulitis. The remaining testicle does not suggest epididymo-orchitis on his current exam. LABORATORY DATA: His urinalysis when he came in yesterday showed many red cells, many white cells, which would be completely expected from his recent TURP, but it also did show some bacteria and some yeast. Cultures as mentioned have been done. Currently, he is feeling a lot better after being admitted, he has had no chills today at all. IMPRESSION: History of recurrent urinary tract/reproductive infections in this 77-year-old diabetic male. No significant causes found for this except for the possibility of prostatitis. He did undergo a transurethral resection of the prostate a week ago under appropriate antibiotic coverage and now he has again gotten sick. Urinalysis suggest bacteria and possibly yeast as a cause. Cultures have been done. He is on antibiotics and currently he is improved. He is not in retention, so I do not think we need to put a catheter in. I would recommend we check and see his cultures as they return, keep him on the current antibiotics as long as he is doing okay with stable vital signs. I do think he should get an Infectious Disease consult to see if they have anything to add to why he continues to get these recurrent symptomatic infections, to be sure that we are dealing with a urinary tract source and he does not have some other occult source for his symptoms, particularly where these have come up, most recently on an appropriate antibiotic. We will follow along with you. Job ID: [id number]
[2018-03-20] MEDS: Vancomycin HCl 1.25 GM in Sodium Chloride 0.9% 250 ML 300 ML IVPB SCH ×2 (04:29→15:48)
[2018-03-20] MEDS: Sodium Chloride 0.9% 1,000 ML IV SCH ×3 (04:30→21:00)
[2018-03-20 05:33] LABS: #Basophils 0.1 thou/uL (0.0-0.2); #Eosinphils 0.2 thou/uL (0.0-0.7); #Lymphocytes 1.7 thou/uL (1.20-3.40); %Basophils 0.7 % (0.0-1.0); %Eosinophils 2.6 % (0.0-10.0); %Lymphocytes 18.9 % (21.0-51.0); %Monocytes 10.8 % (0.0-10.0); Hemoglobin 10.6 g/dL (14.0-18.0); Mean Corpuscular HGB CONC 32.9 g/dL (32.0-36.0); Mean Corpuscular Hemoglobin 28.9 pg (27.0-31.0); Mean Corpuscular Volume 87.8 fL (78.0-98.0); Platelet Count 288 thou/uL (130-400); RBC Distribution Width 13.4 % (11.5-14.5); Red Blood Cell (RBC) Count 3.66 mill/uL (4.70-6.10); White Blood Cell (WBC) Count 8.9 thou/uL (4.8-10.8)
[2018-03-20 05:49] LABS: Anion Gap 12 mmol/L (10-20); BUN (Urea Nitrogen) 16 mg/dL (8.4-25.7); Calc. Creatinine Clearance 72 mL/min (70-130); Calcium 7.9 mg/dL (7.8-10.44); Carbon Dioxide 21 mmol/L (23-31); Chloride 108 mmol/L (98-107); Estimated GFR-MDRD 75; Glucose 197 mg/dL (83-110); Magnesium 1.7 mg/dL (1.6-2.6); Potassium 3.7 mmol/L (3.5-5.1); Sodium 137 mmol/L (136-145)
[2018-03-20] MEDS: Enoxaparin Sodium 30 MG/0.3 ML SYRINGE SC SCH (09:22)
[2018-03-20] MEDS: Insulin Glargine 35 UNITS in Pre-Filled Syringe 1 EACH SC SCH (09:22)
[2018-03-20] MEDS: Spironolactone 25 MG TAB PO SCH (09:23)
[2018-03-20] MEDS: Famotidine 20 MG TAB PO SCH ×2 (09:23→20:52)
[2018-03-20] MEDS: Aspirin 325 MG TAB PO SCH (09:23)
[2018-03-20] MEDS: Sacubitril 24.5 MG/Valsartan 25.5 MG TABLET PO SCH ×2 (11:02→20:53)
[2018-03-20] MEDS: HumaLOG 300 UNITS/3 ML VIAL SC PRN ×2 (11:35→17:11)
[2018-03-20] MEDS: cefTRIAXone\\ROCEPHIN 2 GM in Sodium Chloride 0.9% 100 ML IVPB SCH (14:58)
--- NOTE | 2018-03-20 15:36 | PDOC.CTH ---
Cardiology Progress Note - Subjective EP PROGRESS NOTE: Patient seen and evaluated. No new cardiac concerns or complaints today. Denies heart racing, palpitations, chest pain/pressure, dizziness, or passing out. No stroke like symptoms. Spoke to over the phone today. Obtained consent for EP study with atrial flutter ablation tomorrow afternoon. - Objective Vital Signs Temp Pulse Resp BP Pulse Ox 03/20/18 11:05 97.9 F 91 17 104/54 L 98 03/20/18 07:30 98.5 F 86 15 112/51 L 97 03/20/18 04:00 98.9 F 55 L 18 110/51 L 98 Weight 174 lb 1.6 oz 03/19/18 03/20/18 03/21/18 06:59 06:59 06:59 Intake Total 517 2524 Output Total 525 850 Balance -8 1674 - Physical Examination General/Neuro: alert & oriented x3, NAD Neck: carotid US brisk, no JVD present Lungs: CTA, unlabored respirations Heart: PMI normal Abdomen: NT/ND, soft - Telemetry Telemetry Rhythm: atrial flutter - Labs Result Diagrams: 03/20/18 05:04 03/20/18 05:04 Troponin/CKMB CK-MB (CK-2) 0.9 ng/mL (0-6.6) 03/18/18 20:27 Troponin I Less than 0.010 ng/mL (< 0.028) 03/19/18 02:35 - Assessment/Plan 1.Atrial flutter, typical -dx december 2017 -rate controlled 2. CHADS2-VASC:5 -no anticoagulation currently due to recent TURP. Ideally 14 days before initiating OAC per Dr. Phillips. 3. Dementia 4. Recurrent infections -ID consult -UA C&S, no growth at 24 hrs -BC x 2 no growth today Plan for ARMANDO to evalauted for left atrial thrombus tomorrow at 2:30. If no clot present, proceed with EP study with CTI flutter ablation. Conferring with Dr. Phillips about anticoagulation need/risk follow TURP and potential ablation. At this point the plan restore sinus rhythm through CTI ablation tomorrow. If he is not able to take anticoagulation after right atrial flutter ablation this isn 't ideal but he will be a lower risk for stroke than if we leave him in flutter without anticoagulation.
--- NOTE | 2018-03-20 16:34 | PDOC.CTH ---
Cardiology Progress Note - Subjective No new issues. - Objective Vital Signs Temp Pulse Resp BP BP Pulse Ox 03/20/18 15:20 97.7 F 71 16 108/57 L 98 03/20/18 11:05 97.9 F 91 17 104/54 L 98 03/20/18 07:30 98.5 F 86 15 112/51 L 97 Admit Weight 174 lb 1.6 oz Weight 174 lb 1.6 oz 03/19/18 03/20/18 03/21/18 06:59 06:59 06:59 Intake Total 517 2524 Output Total 525 850 Balance -8 1674 - Physical Examination General/Neuro: NAD Neck: no JVD present Lungs: CTA, unlabored respirations Heart: RRR Abdomen: NT/ND Extremities: other: (no edema.) - Telemetry Telemetry Rhythm: A flutter , HR 80's. - Labs Result Diagrams: 03/20/18 05:04 03/20/18 05:04 Troponin/CKMB CK-MB (CK-2) 0.9 ng/mL (0-6.6) 03/18/18 20:27 Troponin I Less than 0.010 ng/mL (< 0.028) 03/19/18 02:35 - Assessment/Plan 1. Atrial flutter, typical 2. CAD 3. Ischemic CM 4. Hx of VT s/p AICD placement. 5. UTI, s/p TURP 6. Hypokalemia, hypomagnessemia. PLAN: - Full anticoagulation for aflutter. - Agree with Aflutter ablation tomorrow. Will need ARMANDO beforehand. - Replace e-lytes.
--- NOTE | 2018-03-20 17:35 | PDOC.PN ---
- Subjective Encounter Start Date: 03/20/18 Encounter Start Time: 17:25 Subjective: f/u for sepsis suspected from urine source with negative Ucx currently -: Feels ok overall today. - Objective Resuscitation Status - Order Detail: 03/19/18 04:09 Resuscitation Status Routine Resuscitation Status: FULL: Full Resuscitation MAR Reviewed: Yes Vital Signs & Weight: Vital Signs (12 hours) Temp Pulse Resp BP BP Pulse Ox 03/20/18 15:20 97.7 F 71 16 108/57 L 98 03/20/18 11:05 97.9 F 91 17 104/54 L 98 03/20/18 07:30 98.5 F 86 15 112/51 L 97 Weight Admit Weight 174 lb 1.6 oz Weight 174 lb 1.6 oz I&O: 03/19/18 03/20/18 03/21/18 06:59 06:59 06:59 Intake Total 517 2524 Output Total 525 850 Balance -8 1674 Result Diagrams: 03/20/18 05:04 03/20/18 05:04 Additional Labs: Accuchecks 03/20/18 03/20/18 03/20/18 16:32 11:04 05:52 POC Glucose 242 H 239 H 206 H 03/19/18 20:55 POC Glucose 234 H Microbiology 03/18/18 Unknown Nasal swab Influenza Types A,B Direct EIA - Final 03/19/18 Unknown Urine voided Urine Culture - Preliminary NO GROWTH AT 24 HOURS 03/18/18 20:32 Venous blood - Left Hand Blood Culture - Preliminary NO GROWTH AT 48 HOURS 03/18/18 20:26 Venous blood - Left Arm Blood Culture - Preliminary NO GROWTH AT 48 HOURS Laboratory Tests 03/18/18 03/20/18 03/20/18 20:27 05:04 05:05 WBC 12.7 H Hgb 12.2 L Magnesium 1.7 TSH 3rd Generation 3.1669 EKG Reviewed by me: Yes (Tele - A-flutter in 60's) Phys Exam - Physical Examination Constitutional: NAD HEENT: PERRLA, sclera anicteric, oral pharynx no lesions Neck: no nodes, no JVD, supple, full ROM Respiratory: no wheezing, no rales, no rhonchi, clear to auscultation bilateral Cardiovascular: RRR, no significant murmur, no rub, gallop Gastrointestinal: soft, non-tender, no distention, positive bowel sounds Musculoskeletal: no edema, pulses present Neurological: normal sensation, moves all 4 limbs Psychiatric: A&O x 3 Skin: normal turgor, cap refill <2 seconds Dx/Plan (1) Sepsis with acute organ dysfunction Code(s): A41.9 - SEPSIS, UNSPECIFIED ORGANISM; R65.20 - SEVERE SEPSIS WITHOUT SEPTIC SHOCK Status: Acute Comment: Improved with IVF's, IV Rocephin and Vancomycin x 24h then convert to po, initial cx results negative (2) UTI (urinary tract infection) Status: Acute Comment: Suspected but no dominant organism identified, continue Rocephin another 24h then consider converting to po abx (3) DM type 2 (diabetes mellitus, type 2) Status: Chronic Qualifiers: Comment: Labile, continue ISS, resume Metformin in 24h, Lantus 35u sc qam (4) S/P TURP Code(s): Z90.79 - ACQUIRED ABSENCE OF OTHER GENITAL ORGAN(S) Status: Acute Comment: Supportive mgmt, Urology consulted (5) Acute kidney failure Status: Acute Comment: Improved, avoid nephrotoxic meds and limit contrast exposure, continue IVF's - Plan continue antibiotics, PT/OT, out of bed/ambulate, DVT proph w/SCDs Stable overall -: Continue Rocephin/Vancomycin another 24h then d/c -: Continue IVF's -: Plan for cardiac ablation for A-flutter -: Continue Lovenox 80mg sc q12h * AM lab: BMP, CBC
[2018-03-20] MEDS: Finasteride 5 MG TAB PO SCH (20:52)
[2018-03-20] MEDS: Atorvastatin Calcium 20 MG TAB PO SCH (20:52)
[2018-03-20] MEDS: Enoxaparin Sodium 80 MG/0.8 ML SYRINGE SC SCH (20:52)
[2018-03-20] MEDS: Triple Antibiotic Oint 1 GM Packet TOP SCH (20:53)
[2018-03-20] MEDS: Tamsulosin HCl 0.4 MG CAP PO SCH (20:53)
[2018-03-21 03:40] LABS: Anion Gap 9 mmol/L (10-20); BUN (Urea Nitrogen) 16 mg/dL (8.4-25.7); Calc. Creatinine Clearance 62 mL/min (70-130); Calcium 8.4 mg/dL (7.8-10.44); Carbon Dioxide 25 mmol/L (23-31); Chloride 110 mmol/L (98-107); Estimated GFR-MDRD 62; Glucose 136 mg/dL (83-110); Potassium 3.8 mmol/L (3.5-5.1); Sodium 140 mmol/L (136-145)
[2018-03-21 03:52] LABS: Band 9 % (5-11); Eosinophils 1 % (0-10); Lymphocytes 34 % (21-51); MDiff Complete? YES; Mean Corpuscular HGB CONC 32.8 g/dL (32.0-36.0); Mean Corpuscular Hemoglobin 28.6 pg (27.0-31.0); Mean Corpuscular Volume 87.3 fL (78.0-98.0); Mean Platelet Volume 6.4 fL (7.4-10.4); Monocytes 5 % (0-10); Neutrophil 51 % (42-75); Platelet Count 312 thou/uL (130-400); RBC Distribution Width 13.3 % (11.5-14.5); Red Blood Cell (RBC) Count 3.83 mill/uL (4.70-6.10); White Blood Cell (WBC) Count 9.4 thou/uL (4.8-10.8)
[2018-03-21] MEDS: Vancomycin HCl 1.25 GM in Sodium Chloride 0.9% 250 ML 300 ML IVPB SCH (03:55)
[2018-03-21] MEDS ORDERED: Cipro 250 MG TAB PO SCH (08:00)
[2018-03-21] MEDS: Insulin Glargine 35 UNITS in Pre-Filled Syringe 1 EACH SC SCH (09:00)
[2018-03-21] MEDS: Sacubitril 24.5 MG/Valsartan 25.5 MG TABLET PO SCH ×2 (09:22→21:15)
[2018-03-21] MEDS: Enoxaparin Sodium 80 MG/0.8 ML SYRINGE SC SCH (09:22)
[2018-03-21] MEDS: Aspirin 325 MG TAB PO SCH (09:23)
[2018-03-21] MEDS: Spironolactone 25 MG TAB PO SCH (09:24)
[2018-03-21] MEDS: Famotidine 20 MG TAB PO SCH ×2 (09:25→21:16)
[2018-03-21] MEDS: Triple Antibiotic Oint 1 GM Packet TOP SCH ×3 (09:25→21:15)
[2018-03-21] MEDS: metFORMIN 500 MG TAB PO SCH ×2 (09:25→17:00)
[2018-03-21] MEDS: Dextrose 5 % And 0.9 % NaCl 1,000 ML IV SCH ×2 (11:01→18:10)
[2018-03-21] MEDS ORDERED: PHENYLEPHRINE-NS 100 MCG/ML 10 ML SYRINGE ONE (11:47)
[2018-03-21] MEDS ORDERED: PROPOFOL 200 MG/20 ML VIAL ONE (11:47)
[2018-03-21] MEDS ORDERED: ePHEDrine/0.9% NaCl/PF SYRINGE 50 mg/10 ml ONE ×2 (11:47→16:48)
[2018-03-21] MEDS ORDERED: Lidocaine 1% (PF) 30 ML VIAL ONE (13:24)
[2018-03-21] MEDS ORDERED: Heparin 10,000 UNITS/1 ML VIAL ONE (13:25)
[2018-03-21] MEDS ORDERED: Fluconazole In NaCl,Iso-Osm 200 MG in Premix Bag 1 BAG IVPB SCH (13:30)
--- NOTE | 2018-03-21 13:34 | PDOC.PN ---
- Subjective Encounter Start Date: 03/21/18 Encounter Start Time: 13:20 Subjective: f/u for suspected UTI/sepsis on current Cipro and Diflucan after -: Ucx showing yeast spp. Feels ok overall. Hypoglycemic this am now -: corrected with D5NS. Plan for cardiac ablation for A-flutter today. - Objective Resuscitation Status - Order Detail: 03/19/18 04:09 Resuscitation Status Routine Resuscitation Status: FULL: Full Resuscitation MAR Reviewed: Yes Vital Signs & Weight: Vital Signs (12 hours) Temp Pulse Resp BP Pulse Ox 03/21/18 11:15 98.2 F 72 16 111/55 L 98 03/21/18 08:11 97.9 F 71 16 114/55 L 99 03/21/18 04:00 99.2 F 85 14 132/61 96 Weight Admit Weight 174 lb 1.6 oz Weight 174 lb 1.6 oz I&O: 03/20/18 03/21/18 03/22/18 06:59 06:59 06:59 Intake Total 2524 2900 Output Total 850 1225 Balance 1674 1675 Result Diagrams: 03/21/18 03:03 03/21/18 03:03 Additional Labs: Accuchecks 03/21/18 03/21/18 03/21/18 11:32 10:33 10:07 POC Glucose 131 H 187 H 66 L 03/21/18 03/20/18 03/20/18 05:56 20:47 16:32 POC Glucose 95 197 H 242 H Microbiology 03/18/18 Unknown Nasal swab Influenza Types A,B Direct EIA - Final 03/19/18 Unknown Urine voided Urine Culture - Preliminary YEAST 03/19/18 Unknown Urine voided Urine Culture - Preliminary NO GROWTH AT 24 HOURS 03/18/18 20:32 Venous blood - Left Hand Blood Culture - Preliminary NO GROWTH AT 48 HOURS 03/18/18 20:26 Venous blood - Left Arm Blood Culture - Preliminary NO GROWTH AT 48 HOURS Laboratory Tests 03/18/18 03/20/18 03/20/18 20:27 05:04 05:05 WBC 12.7 H Hgb 12.2 L Magnesium 1.7 TSH 3rd Generation 3.1669 EKG Reviewed by me: Yes (Tele - A-flutter in 70's) Phys Exam - Physical Examination Constitutional: NAD HEENT: PERRLA, sclera anicteric, oral pharynx no lesions Neck: no nodes, no JVD, supple, full ROM Respiratory: no wheezing, no rales, no rhonchi, clear to auscultation bilateral S1, S2 Cardiovascular: RRR, no significant murmur, no rub, gallop Gastrointestinal: soft, non-tender, no distention, positive bowel sounds Musculoskeletal: no edema, pulses present Neurological: normal sensation, moves all 4 limbs Psychiatric: A&O x 3 Skin: normal turgor, cap refill <2 seconds Dx/Plan (1) Sepsis with acute organ dysfunction Code(s): A41.9 - SEPSIS, UNSPECIFIED ORGANISM; R65.20 - SEVERE SEPSIS WITHOUT SEPTIC SHOCK Status: Acute Comment: Improved with IVF's, IV Rocephin and Vancomycin d/c'd, started Cipro 500mg BID for coverage of prior pseudomonas spp , Diflucan for yeast in current Ucx (2) UTI (urinary tract infection) Status: Acute Comment: See above, continue Diflucan and Cipro (3) DM type 2 (diabetes mellitus, type 2) Status: Chronic Qualifiers: Comment: Labile, continue ISS, resume Metformin in 24h, Lantus 35u sc qam (4) S/P TURP Code(s): Z90.79 - ACQUIRED ABSENCE OF OTHER GENITAL ORGAN(S) Status: Acute Comment: Supportive mgmt, Urology consulted (5) Acute kidney failure Status: Acute Comment: Improved, avoid nephrotoxic meds and limit contrast exposure, continue IVF's - Plan plan discussed w/ family, continue antibiotics, PT/OT, social insurance administrator, out of bed/ambulate Stable overall -: Continue Cipro 500mg BID -: Continue Diflucan -: Plan for cardiac ablation today after ARMANDO -: Continue Lovenox 80mg sc q12h * Likely home in 48h
[2018-03-21] MEDS ORDERED: Meropenem 1 GM in Sodium Chloride 0.9% 100 ML IVPB SCH (14:00)
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
[2018-03-21] MEDS ORDERED: PROPOFOL 40 ML ONE (14:52)
[2018-03-21] MEDS ORDERED: Propofol 500 MG/50 ML VIAL ONE (15:13)
[2018-03-21] MEDS ORDERED: KETAMINE 100 MG/ML (5ML VIAL) ONE (15:13)
[2018-03-21] MEDS ORDERED: Midazolam HCl 2 mg/2 ml Vial ONE (15:13)
[2018-03-21] MEDS ORDERED: Fentanyl 100 MCG/2 ML VIAL ONE (15:13)
[2018-03-21] MEDS ORDERED: Phenylephrine HCL 10 MG/ML VIAL ONE (15:54)
[2018-03-21] MEDS ORDERED: Vancomycin HCl 1.25 GM in Sodium Chloride 0.9% 250 ML 300 ML IVPB SCH (16:00)
[2018-03-21] MEDS ORDERED: Isoproterenol 0.2 MG/1 ML AMP ONE (16:07)
[2018-03-21] MEDS ORDERED: DOPamine 400 MG/D5W 250 ML 250 ML ONE (16:08)
[2018-03-21] MEDS ORDERED: Acetaminophen/Codeine 30-300mg Tablet PO PRN ×2 (18:15)
--- NOTE | 2018-03-21 18:41 | PDOC.CTH ---
Cardiology Progress Note - Subjective No new issues or complaints. Had an episode of hypoglycemia this morning, resolved since. - Objective Vital Signs Temp Pulse Resp BP BP Pulse Ox 03/21/18 17:37 97.5 F L 76 18 128/60 100 03/21/18 11:15 98.2 F 72 16 111/55 L 98 03/21/18 08:11 97.9 F 71 16 114/55 L 99 Admit Weight 174 lb 1.6 oz Weight 174 lb 1.6 oz 03/20/18 03/21/18 03/22/18 06:59 06:59 06:59 Intake Total 2524 2900 0 Output Total 850 1225 0 Balance 1674 1675 0 - Physical Examination General/Neuro: alert & oriented x3, NAD Neck: no JVD present Lungs: CTA, unlabored respirations Heart: RRR Abdomen: NT/ND Extremities: other: (no edema.) - Telemetry Telemetry Rhythm: Aflutter - Labs Result Diagrams: 03/21/18 03:03 03/21/18 03:03 Troponin/CKMB CK-MB (CK-2) 0.9 ng/mL (0-6.6) 03/18/18 20:27 Troponin I Less than 0.010 ng/mL (< 0.028) 03/19/18 02:35 - Assessment/Plan 1. Atrial flutter, typical 2. CAD 3. Ischemic CM 4. Hx of VT s/p AICD placement. 5. UTI, s/p TURP 6. Hypokalemia, hypomagnessemia. PLAN: - Full anticoagulation for aflutter. - Aflutter ablation, today.
[2018-03-21] MEDS: Finasteride 5 MG TAB PO SCH (21:15)
[2018-03-21] MEDS: Atorvastatin Calcium 20 MG TAB PO SCH (21:16)
[2018-03-21] MEDS: Cipro 250 MG TAB PO SCH (21:16)
[2018-03-21] MEDS: Tamsulosin HCl 0.4 MG CAP PO SCH (21:17)
[2018-03-21] MEDS ORDERED: MEROPENEM 1 GM/50 ML 1 GM in Premix Bag 1 BAG IVPB SCH (22:00)
--- NOTE | 2018-03-21 23:23 | ECHO ---
REASON FOR PROCEDURE: The patient is a 77-year-old male with prior history of cardiomyopathy. ICD in place. He is here for ARMANDO prior to planned cardioversion. PROCEDURE: The patient received propofol by Anesthesia specialist. After adequate level of sedation achieved, a transesophageal echocardiogram probe was passed into the esophagus without difficulty. Patient tolerated the procedure well, no complications noted. RESULTS: Left atrium is mildly enlarged to about 4.2 cm in horizontal diameter. The appendage contains no clots. The left atrial appendage velocities are over ---- - cm per second, which is adequate. Four out of four pulmonary veins were visualized. The mitral valve has mild regurgitation. The left ventricular systolic function appears to be near normal about 50%. Left ventricular size and wall thickness is normal. Right chambers are nondilated. ICD on the right sided chambers are seen. The visualized portion of ascending and descending aorta without aneurysm and adherent atheroma noted of the aortic arch. Mild tricuspid regurgitation seen. Aortic valve is sclerotic. Mildly stenotic. The pericardial space without significant effusion. Fat pad is noted. CONCLUSION: 1. No intracardiac clots. 2. Mild left atrial enlargement. 3. Mild mitral and tricuspid regurgitation. 4. Near normal LV function. 5. Mildly stenotic 3 leaflet aortic valve. MTDD
[2018-03-22] MEDS: MEROPENEM 1 GM/50 ML 1 GM in Premix Bag 1 BAG IVPB SCH ×3 (02:03→17:38)
[2018-03-22] MEDS: Cipro 250 MG TAB PO SCH ×2 (05:16→21:29)
--- NOTE | 2018-03-22 07:37 | OP ---
DATE OF PROCEDURE: 03/21/2018 TYPE OF STUDY: Electrophysiology study and radiofrequency ablation report. REFERRING PHYSICIAN: Dr. Briones. REASON FOR PROCEDURE: Mr. Coronado is a 77-year-old male with prior history of cardiomyopathy, single-chamber ICD in place, who had been found to be in atrial flutter. He also had a recent TURP, but no obvious hematuria, on full dose Lovenox. History prior to the procedure demonstrates no intracardiac clots. DESCRIPTION OF PROCEDURE: The patient received propofol by Anesthesia specialist. After adequate level of sedation achieved, the right femoral venous area was prepped, draped, and anesthestized using the subcutaneous lidocaine. Under ultrasound guidance with a multipurpose needle, two 8-Romansh short sheaths were introduced through which a decapolar and ThermoCool SFST catheter were advanced to the right atrium, right ventricle, His bundle, and CS positions. Pacing, mapping, and recording were performed at each location. After 3D mapping was obtained, the following findings were noted. The baseline rhythm was atrial flutter with ventricular shunt atrial cycle length of 220 milliseconds. Overdrive pacing of the cavotricuspid isthmus measured the tachycardia cycle length of 220 milliseconds suggestive of isthmus dependent atrial flutter with appropriate entrainment. Following that, cavotricuspid isthmus ablation was performed. During the flutter ablation, the flutter terminated and following that during proximal CS pacing, the cavotricuspid isthmus block was further ablated and achieved. Total transisthmus time increased to 150 milliseconds from baseline 40 milliseconds. The block was demonstrated by longus transisthmus times adjacent to the ablation line. Following that, basic EP study was performed demonstrating no VA conduction. Sinus node recovery time was 449 milliseconds, which is borderline abnormal. The AV ERP was 600/500. At this point, dopamine was administered. During dopamine, burst atrial pacing was performed and did not range his atrial flutter. The cavotricuspid isthmus block was again re-demonstrated. No atrial fibrillation seen either. The total ablation time was 2 minutes and 55 seconds with a total of four lesions delivered at 40 [place]. The impedances ranged from 97 to 138 ohms. At the end of the case, RENÉE did not demonstrate change in cardiac silhouette. The patient tolerated the procedure well. No complications. CONCLUSION: Succesful CTI ablation eliminating a typical atrial flutter. PLAN: Continue anticoagulation with lovenox hence recent TURP surgery. [facility] ID: [id number] [facility]
[2018-03-22] MEDS: Dextrose 5 % And 0.9 % NaCl 1,000 ML IV SCH (09:32)
[2018-03-22] MEDS: Enoxaparin Sodium 80 MG/0.8 ML SYRINGE SC SCH ×2 (09:33→21:30)
[2018-03-22] MEDS: Aspirin 325 MG TAB PO SCH (09:33)
[2018-03-22] MEDS: Sacubitril 24.5 MG/Valsartan 25.5 MG TABLET PO SCH ×2 (09:33→21:33)
[2018-03-22] MEDS: Famotidine 20 MG TAB PO SCH ×2 (09:34→21:30)
[2018-03-22] MEDS: metFORMIN 500 MG TAB PO SCH ×2 (09:34→17:04)
[2018-03-22] MEDS: Spironolactone 25 MG TAB PO SCH (09:35)
[2018-03-22] MEDS: Insulin Glargine 35 UNITS in Pre-Filled Syringe 1 EACH SC SCH (09:36)
[2018-03-22] MEDS: Triple Antibiotic Oint 1 GM Packet TOP SCH ×3 (09:36→21:29)
--- NOTE | 2018-03-22 14:17 | PDOC.CTH ---
Cardiology Progress Note - Subjective EP FOLLOW UP NOTE 03/22/18 Pt is doing well 1 day after his ARMANDO/CTI ablation procedure. - Objective Vital Signs Temp Pulse Resp BP BP Pulse Ox 03/22/18 12:05 98.1 F 71 18 109/55 L 95 03/22/18 08:47 98.3 F 84 18 119/59 L 99 03/22/18 04:16 98.1 F 75 13 116/57 L 99 Admit Weight 174 lb 1.6 oz Weight 184 lb 3 oz 03/21/18 03/22/18 03/23/18 06:59 06:59 06:59 Intake Total 2900 3566 Output Total 1225 1220 Balance 1675 2346 - Physical Examination General/Neuro: alert & oriented x3, NAD Neck: carotid US brisk, no JVD present Lungs: CTA, unlabored respirations Heart: RRR Abdomen: no HSM, soft Extremities: other: (No right groin hematoma.) - Telemetry Telemetry Rhythm: SR - Labs Result Diagrams: 03/21/18 03:03 03/21/18 03:03 Troponin/CKMB CK-MB (CK-2) 0.9 ng/mL (0-6.6) 03/18/18 20:27 Troponin I Less than 0.010 ng/mL (< 0.028) 03/19/18 02:35 - Assessment/Plan 1.Atrial flutter, typical -dx december 2017 -rate controlled -S/P CTI ablation 03/21/18 resoring SR> No apparent complications. Stable for D/C as per EP. 2. CHADS2-VASC:5 -no anticoagulation currently due to recent TURP. Ideally 14 days before initiating OAC per Dr. Phillips. -ARMANDO showed no left atrial thrombus. 3. Dementia 4. Recurrent infections -ID consult -UA C&S, no growth at 24 hrs -BC x 2 no growth to day Pt appears stable form EP standpoint. Would sign out. Call if questions. Please, arrange 4-6 weeks follow up in our office.
--- NOTE | 2018-03-22 15:29 | PDOC.PN ---
- Subjective Encounter Start Date: 03/22/18 Encounter Start Time: 15:35 Subjective: f/u for A-flutter s/p ablation now SR. States feeling well and no -: CP, SOB. Overall feels well and has good appetite. No fever. - Objective Resuscitation Status - Order Detail: 03/19/18 04:09 Resuscitation Status Routine Resuscitation Status: FULL: Full Resuscitation MAR Reviewed: Yes Vital Signs & Weight: Vital Signs (12 hours) Temp Pulse Resp BP BP Pulse Ox 03/22/18 12:05 98.1 F 71 18 109/55 L 95 03/22/18 08:47 98.3 F 84 18 119/59 L 99 03/22/18 04:16 98.1 F 75 13 116/57 L 99 Weight Admit Weight 174 lb 1.6 oz Weight 184 lb 3 oz I&O: 03/21/18 03/22/18 03/23/18 06:59 06:59 06:59 Intake Total 2900 3566 Output Total 1225 1220 Balance 1675 2346 Result Diagrams: 03/21/18 03:03 03/21/18 03:03 Additional Labs: Accuchecks 03/22/18 03/21/18 03/21/18 05:27 20:31 18:43 POC Glucose 131 H 119 H 85 03/21/18 18:01 POC Glucose 70 Microbiology 03/18/18 Unknown Nasal swab Influenza Types A,B Direct EIA - Final 03/19/18 Unknown Urine voided Urine Culture - Preliminary YEAST 03/19/18 Unknown Urine voided Urine Culture - Preliminary NO GROWTH AT 24 HOURS 03/18/18 20:32 Venous blood - Left Hand Blood Culture - Preliminary NO GROWTH AT 48 HOURS 03/18/18 20:26 Venous blood - Left Arm Blood Culture - Preliminary NO GROWTH AT 48 HOURS Laboratory Tests 03/18/18 03/20/18 03/20/18 20:27 05:04 05:05 WBC 12.7 H Hgb 12.2 L Magnesium 1.7 TSH 3rd Generation 3.1669 EKG Reviewed by me: Yes (Tele - SR) Phys Exam - Physical Examination Constitutional: NAD smiling, alert HEENT: PERRLA, sclera anicteric, oral pharynx no lesions Neck: no nodes, no JVD, supple, full ROM Respiratory: no wheezing, no rales, no rhonchi, clear to auscultation bilateral S1, S2 Cardiovascular: RRR, no significant murmur, no rub, gallop Gastrointestinal: soft, non-tender, no distention, positive bowel sounds Musculoskeletal: no edema, pulses present Neurological: normal sensation, moves all 4 limbs Psychiatric: A&O x 3 Skin: normal turgor, cap refill <2 seconds Dx/Plan (1) Sepsis with acute organ dysfunction Code(s): A41.9 - SEPSIS, UNSPECIFIED ORGANISM; R65.20 - SEVERE SEPSIS WITHOUT SEPTIC SHOCK Status: Acute Comment: Improved with IVF's, IV Rocephin and Vancomycin d/c'd, started Cipro 500mg BID for coverage of prior pseudomonas spp , Diflucan for yeast in current Ucx (2) UTI (urinary tract infection) Status: Acute Comment: See above, continue Diflucan and Cipro (3) DM type 2 (diabetes mellitus, type 2) Status: Chronic Qualifiers: Comment: Labile, continue ISS, resume Metformin in 24h, Lantus 35u sc qam (4) S/P TURP Code(s): Z90.79 - ACQUIRED ABSENCE OF OTHER GENITAL ORGAN(S) Status: Acute Comment: Supportive mgmt, Urology consulted (5) Acute kidney failure Status: Acute Comment: Improved, avoid nephrotoxic meds and limit contrast exposure, continue IVF's (6) Atrial flutter Code(s): I48.92 - UNSPECIFIED ATRIAL FLUTTER Status: Acute Qualifiers: Atrial flutter type: typical Qualified Code(s): I48.3 - Typical atrial flutter Comment: s/p ablation with return SR, continue Metoprolol 75mg BID, no anticoagulation for 14days secondary to recent TURP - Plan plan discussed w/ family, continue antibiotics, PT/OT, social services aide, out of bed/ambulate Stable overall -: Continue Metoprolol 75mg BID -: Hold anticoagulation due to recent TURP -: Continue Cipro -: Continue Diflucan * Likely home in 24h
--- NOTE | 2018-03-22 16:03 | PDOC.CTH ---
Cardiology Progress Note - Subjective He is doing well. He had his ablation and is now back in sinus. Did very well. Feels better already. - Objective Vital Signs Temp Pulse Resp BP BP Pulse Ox 03/22/18 12:05 98.1 F 71 18 109/55 L 95 03/22/18 08:47 98.3 F 84 18 119/59 L 99 03/22/18 04:16 98.1 F 75 13 116/57 L 99 Admit Weight 174 lb 1.6 oz Weight 184 lb 3 oz 03/21/18 03/22/18 03/23/18 06:59 06:59 06:59 Intake Total 2900 3566 Output Total 1225 1220 Balance 1675 2346 - Physical Examination General/Neuro: alert & oriented x3, NAD Neck: no JVD present Lungs: CTA, unlabored respirations Heart: RRR Abdomen: NT/ND Extremities: other: (No edema.) - Telemetry Telemetry Rhythm: NSR, PAC's - Labs Result Diagrams: 03/21/18 03:03 03/21/18 03:03 Troponin/CKMB CK-MB (CK-2) 0.9 ng/mL (0-6.6) 03/18/18 20:27 Troponin I Less than 0.010 ng/mL (< 0.028) 03/19/18 02:35 - Assessment/Plan 1. Atrial flutter, typical, s/p successful ablation. 2. CAD 3. Ischemic CM 4. Hx of VT s/p AICD placement. 5. UTI, s/p TURP 6. Hypokalemia, hypomagnessemia, resolved. 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 - Continue other meds for now. - Abx per primary team.
--- NOTE | 2018-03-22 19:01 | EKG ---
Test Reason : Blood Pressure : / mmHG Vent. Rate : 067 BPM Atrial Rate : 067 BPM P-R Int : 222 ms QRS Dur : 102 ms QT Int : 448 ms P-R-T Axes : 099 046 018 degrees QTc Int : 473 ms Sinus rhythm with sinus arrhythmia with 1st degree A-V block Nonspecific ST abnormality Abnormal ECG When compared with ECG of 18-MAR-2018 20:11, (Unconfirmed) Sinus rhythm has replaced Atrial flutter Nonspecific T wave abnormality no longer evident in Anterolateral leads Confirmed by Uriel BANKS ([id number]) on 03/22/2018 7:01:28 PM Referred By: JACLYN Confirmed By:Uriel BANKS
--- NOTE | 2018-03-22 19:03 | EKG ---
Test Reason : Blood Pressure : / mmHG Vent. Rate : 075 BPM Atrial Rate : 075 BPM P-R Int : 204 ms QRS Dur : 092 ms QT Int : 420 ms P-R-T Axes : 057 025 005 degrees QTc Int : 469 ms Normal sinus rhythm Low voltage QRS Nonspecific ST and T wave abnormality Prolonged QT Abnormal ECG When compared with ECG of 21-MAR-2018 17:19, (Unconfirmed) No significant change was found Confirmed by Uriel BANKS ([id number]) on 03/22/2018 7:03:27 PM Referred By: JACLYN Confirmed By:Uriel BANKS
[2018-03-22] MEDS: Atorvastatin Calcium 20 MG TAB PO SCH (21:29)
[2018-03-22] MEDS: Finasteride 5 MG TAB PO SCH (21:29)
[2018-03-22] MEDS: Tamsulosin HCl 0.4 MG CAP PO SCH (21:30)
[2018-03-23] MEDS: MEROPENEM 1 GM/50 ML 1 GM in Premix Bag 1 BAG IVPB SCH ×2 (00:51→09:23)
[2018-03-23] MEDS: Cipro 250 MG TAB PO SCH (05:26)
[2018-03-23] MEDS: Sacubitril 24.5 MG/Valsartan 25.5 MG TABLET PO SCH (09:17)
[2018-03-23] MEDS: Spironolactone 25 MG TAB PO SCH (09:17)
[2018-03-23] MEDS: metFORMIN 500 MG TAB PO SCH (09:17)
[2018-03-23] MEDS: Famotidine 20 MG TAB PO SCH (09:18)
[2018-03-23] MEDS: Aspirin 325 MG TAB PO SCH (09:20)
[2018-03-23] MEDS: Enoxaparin Sodium 80 MG/0.8 ML SYRINGE SC SCH (09:20)
[2018-03-23] MEDS: Triple Antibiotic Oint 1 GM Packet TOP SCH (09:22)
[2018-03-23] MEDS: Insulin Glargine 35 UNITS in Pre-Filled Syringe 1 EACH SC SCH (09:23)
[2018-03-23 11:28] VITALS: BP 133/62; TEMP 98
--- NOTE | 2018-03-23 11:57 | EKG ---
Test Reason : Blood Pressure : / mmHG Vent. Rate : 082 BPM Atrial Rate : 300 BPM P-R Int : 000 ms QRS Dur : 090 ms QT Int : 404 ms P-R-T Axes : 000 026 -49 degrees QTc Int : 472 ms Atrial flutter with variable A-V block with premature ventricular or aberrantly conducted complexes Nonspecific T wave abnormality Prolonged QT Abnormal ECG Confirmed by RODRÍGUEZ MARES, FREDO ([id number]), newspaper copy editor MARIA ELENA BARCENAS ([id number]) on 03/23/2018 11:56:57 AM Referred By: ANA ARREGUIN Confirmed By:FREDO ARREGUIN MD
--- NOTE | 2018-03-23 12:23 | DIS ---
DATE OF ADMISSION: 03/19/2018 DATE OF DISCHARGE: 03/23/2018 DISCHARGE DIAGNOSES: 1. Sepsis with acute organ dysfunction secondary to urinary tract infection, resolved. 2. Urinary tract infection without dominant organism identified, improved. 3. Atrial flutter, status post ablation with return to sinus mechanism, stable. 4. Diabetes mellitus, type 2, insulin requiring. 5. Status post transurethral resection of the prostate. 6. Acute kidney injury, resolved. CONSULTATIONS: 1. Dr. Briones with Cardiology Service. 2. Dr. Ramos with Electrophysiology Service. 3. Dr. Kamara with Urology Service. 4. Dr. Stewart with Infectious Disease Service. PERTINENT LABORATORY AND DIAGNOSTIC DATA: Creatinine ranged between 0.97 to 1.35. Estimated GFR ranged between 51 to 75. Lactic acid level ranged between 2.9 to 5.1. BNP 254. Troponin I negative x3. TSH 3.17. CBC showed a white blood cell count ranged between 8.9 to 12.7, hemoglobin ranged between 10.6 to 12.2. Blood cultures x2, dated 03/18/2018, showed no growth to date. Influenza A and B antigen on 03/18/2018 negative. Urine culture, dated 03/19/2018, showed presumptive Mi albicans. CT angiogram of the chest, dated 03/18/2018, showed no evidence for pulmonary embolus. Minimal pneumonitis changes in the right upper lobe, questionable scar. Portable chest x-ray, dated 03/18/2018, showed no acute cardiopulmonary process. 2D transesophageal echocardiogram, dated 03/21/2018, showed no evidence for intracardiac thrombus. Ejection fraction estimated at 50%. HOSPITAL COURSE: The patient was initially admitted to the telemetry unit after presenting with generalized weakness and chills with suspicion for urinary tract infection with associated sepsis syndrome. The patient is status post TURP, presenting with suspected urinary tract infection, placed on IV vancomycin and Rocephin. Urine culture did show Mi albicans species without dominant bacterial etiology. The patient was evaluated by the Urology Service due to the recent nature of the prostate resection with recommendations for general supportive management, IV fluids, and monitoring of urine culture results. The patient's urine culture did show Mi species and was placed on Diflucan for approximately 48 hours. The patient continued to receive meropenem at the direction of the Infectious Disease Service in addition to ciprofloxacin. Antibiotic choice was based on a prior urine culture results in early February 2018. The patient was also evaluated due to atrial flutter noted on the telemetry and EKG evaluation. The patient was evaluated by Electrophysiology Service with recommendations to undergo cardiac ablation for definitive care. The patient underwent cardiac ablation on 03/21/2018 with successful return of sinus mechanism. The patient did receive Lovenox for anticoagulation. However, due to the recent prostate resection, full oral anticoagulation was not recommended until 14 days status post ablation. The patient overall remained clinically stable, tolerating regular oral intake, ambulating without assistance or difficulty with stable vital signs. I have examined the patient at the time of discharge and discussed followup instructions with the patient and family. The patient verbalized understanding and in agreement and ready for discharge on 03/23/2018. DISCHARGE MEDICATIONS: 1. Aspirin 325 mg p.o. daily. 2. Lipitor 20 mg p.o. at bedtime. 3. Finasteride 5 mg p.o. at bedtime. 4. Levemir 35 units subcutaneously q.a.m. 5. Namenda 10 mg p.o. b.i.d. 6. Metformin 1000 mg p.o. b.i.d. 7. Metoprolol succinate 75 mg p.o. b.i.d. 8. Myrbetriq 25 mg p.o. q.a.m. 9. Entresto 24/26 mg 1 tablet p.o. b.i.d. 10. Spironolactone 12.5 mg p.o. q.a.m. 11. Ciprofloxacin 500 mg p.o. b.i.d. FOLLOWUP: The patient may follow up with his primary care provider, Dr. Jakub Varghese within 7 days of discharge. The patient to follow up with Dr. Briones with [facility] Cardiology Service. The patient to follow up with Dr. Gerry Kamara within 10 days with Urology Service. The patient to follow up with Dr. Ramos with Electrophysiology Service 14 days after discharge. CONDITION ON DISCHARGE: Stable. ACTIVITY: Ad jada. DIET: ADA. CODE STATUS: Full. SPECIAL INSTRUCTIONS: Recommend initiation of oral anticoagulation by 04/05/2018. DISPOSITION: Home on 03/23/2018. TIME SPENT: Total time preparing and coordinating discharge is 37 minutes. Job ID: [id number]
--- NOTE | 2018-03-23 12:24 | PDOC.CTH ---
Cardiology Progress Note - Subjective The pt seen and examined. No overnight events. No cardiac complaints. - Objective Vital Signs Temp Pulse Resp BP BP Pulse Ox 03/23/18 11:23 98 F 70 16 133/62 100 03/23/18 07:35 97.8 F 76 16 130/62 98 03/23/18 04:00 99.4 F 75 18 125/61 96 Admit Weight 174 lb 1.6 oz Weight 184 lb 5 oz 03/22/18 03/23/18 03/24/18 06:59 06:59 06:59 Intake Total 3566 1456 240 Output Total 1220 100 Balance 2346 1356 240 - Physical Examination General/Neuro: alert & oriented x3 Neck: no JVD present Lungs: CTA Heart: RRR Abdomen: soft Extremities: other: (No edema) - Telemetry Telemetry Rhythm: SR - Labs Result Diagrams: 03/21/18 03:03 03/21/18 03:03 Troponin/CKMB CK-MB (CK-2) 0.9 ng/mL (0-6.6) 03/18/18 20:27 Troponin I Less than 0.010 ng/mL (< 0.028) 03/19/18 02:35 - Assessment/Plan 1. Typical Atrial flutter with s/p successful ablation - remains in SR. On Bblocker and ASA 325mg QD. OAC will be started within 2wks out of TURP per urology. 2. CAD - stable with Bblocker, ARB, ASA, and Statin 3. Ischemic CMY - Stable with Entresto, BBlocker, Spinorolactone. 4. Hx of VT s/p AICD placement. 5. UTI, s/p TURP - On ABX IV; managed by PCP 6. DM type 2 - managed by PCP MAR reviewed * The pt will f/u with Dr Briones within 10 days. All questions were answered. Review of Systems - Review of Systems Constitutional: reports: no symptoms reported EENTM: reports: no symptoms reported Respiratory: reports: no symptoms reported Cardiac (ROS): reports: no symptoms reported ABD/GI: reports: no symptoms reported : reports: no symptoms reported Musculoskeletal: reports: no symptoms reported Skin: reports: no symptoms reported
--- NOTE | 2018-03-26 22:27 | EKG ---
Test Reason : TIMED Blood Pressure : / mmHG Vent. Rate : 073 BPM Atrial Rate : 073 BPM P-R Int : 206 ms QRS Dur : 092 ms QT Int : 402 ms P-R-T Axes : 060 050 025 degrees QTc Int : 442 ms Sinus rhythm with occasional Premature ventricular complexes Otherwise normal ECG When compared with ECG of 22-MAR-2018 07:11, Premature ventricular complexes are now Present Confirmed by Uriel BANKS ([id number]) on 03/26/2018 10:27:29 PM Referred By: JACLYN Confirmed By:Uriel BANKS
== END 2018-03-23 12:50 | disposition home or self-care (01) | DRG 854 ==
LOC: ERS 19:49 → 2NO 03-19 01:15
PROVIDERS: ADMIT Internal Medicine; ATTEND Internal Medicine
PROC: 02583ZZ Destruction of Conduction Mechanism, Percutaneous Approach (ICD-10-PCS; principal; 2018-03-21)
PROC: 4A023FZ Measurement of Cardiac Rhythm, Percutaneous Approach (ICD-10-PCS; 2018-03-21)
PROC: 4A0234Z Measurement of Cardiac Electrical Activity, Percutaneous Approach (ICD-10-PCS; 2018-03-21)
PROC: 02K83ZZ Map Conduction Mechanism, Percutaneous Approach (ICD-10-PCS; 2018-03-21)
PROC: B246ZZ4 Ultrasonography of Right and Left Heart, Transesophageal (ICD-10-PCS; 2018-03-21)
DX: A41.9 Sepsis, unspecified organism (principal); N39.0 Urinary tract infection, site not specified; I48.92 Unspecified atrial flutter; N17.9 Acute kidney failure, unspecified; I50.22 Chronic systolic (congestive) heart failure; E11.9 Type 2 diabetes mellitus without complications; E78.5 Hyperlipidemia, unspecified; F03.90 Unspecified dementia, unspecified severity, without behavioral disturbance, psychotic disturbance, mood disturbance, and anxiety; N41.1 Chronic prostatitis; I25.10 Atherosclerotic heart disease of native coronary artery without angina pectoris; E87.6 Hypokalemia; E83.42 Hypomagnesemia; R65.20 Severe sepsis without septic shock; I25.5 Ischemic cardiomyopathy; Z79.82 Long term (current) use of aspirin; Z79.4 Long term (current) use of insulin; Z95.810 Presence of automatic (implantable) cardiac defibrillator; Z82.49 Family history of ischemic heart disease and other diseases of the circulatory system
CPT/HCPCS: 36415; 36416; 71045; 71275; 76942; 80048; 80053; 80069; 80202; 81003; 81015; 82553; 83605; 83690; 83735; 83880; 84443; 84484; 85007; 85025; 85027; 85379; 87040; 87086; 87804; 93005; 93010; 93312; 93613; 93623; 93653; 93798; 96361; 96365; 96367; C1730; C1769; G8978-GP-CJ; G8979-GP-CI; J0692; J0696; J1265; J1450; J1644; J1650; J1956; J2001; J2185; J2250; J2370; J2543; J2704; J3010; J3370; J7042; J7050; S0028

== ENCOUNTER 2018-03-27 14:39 | Inpatient (IN) | payer MEDICARE, BC ==
[2018-03-27 15:52] LABS: #Basophils 0.1 thou/uL (0.0-0.2); #Eosinphils 0.1 thou/uL (0.0-0.7); #Lymphocytes 2.3 thou/uL (1.20-3.40); #Monocytes 1.1 thou/uL (0.11-0.59); #Neutrophils 9.7 thou/uL (1.40-6.50); %Basophils 0.9 % (0.0-1.0); %Eosinophils 0.8 % (0.0-10.0); %Lymphocytes 17.1 % (21.0-51.0); %Neutrophils 73.2 % (42.0-75.0); Hemoglobin 12.1 g/dL (14.0-18.0); Mean Corpuscular Hemoglobin 27.7 pg (27.0-31.0); Mean Corpuscular Volume 86.6 fL (78.0-98.0); Mean Platelet Volume 6.2 fL (7.4-10.4); Platelet Count 544 thou/uL (130-400); RBC Distribution Width 13.4 % (11.5-14.5); Red Blood Cell (RBC) Count 4.35 mill/uL (4.70-6.10); White Blood Cell (WBC) Count 13.2 thou/uL (4.8-10.8)
[2018-03-27 16:16] LABS: ALT (SGPT) 8 U/L (8-55); AST (SGOT) 8 U/L (5-34); Albumin 3.2 g/dL (3.4-4.8); Alkaline Phosphatase 81 U/L (40-150); Anion Gap 20 mmol/L (10-20); BUN (Urea Nitrogen) 35 mg/dL (8.4-25.7); Bilirubin, Total 0.7 mg/dL (0.2-1.2); CK (CPK) 16 U/L (30-200); Calc. Creatinine Clearance 0 mL/min (70-130); Calcium 9.8 mg/dL (7.8-10.44); Carbon Dioxide 19 mmol/L (23-31); Chloride 100 mmol/L (98-107); Estimated GFR-MDRD 36; Globulin 3.8 g/dL (2.4-3.5); Glucose 222 mg/dL (83-110); Potassium 4.1 mmol/L (3.5-5.1); Sodium 135 mmol/L (136-145)
--- NOTE | 2018-03-27 17:08 | RAD ---
PORTABLE UPRIGHT FRONTAL CHEST RADIOGRAPH 03/27/18 COMPARISON: 03/18/18 HISTORY: Dizziness and weakness. FINDINGS: Single lead transvenous AICD inserted via left subclavian approach, stable. Clips overlie the base of the neck on the left. There is no pneumothorax, pleural fluid, lobar consolidation, or alveolar trey a. IMPRESSION: No acute findings. POS: [facility]
--- NOTE | 2018-03-27 18:21 | CT ---
HEAD CT WITHOUT CONTRAST 03/27/18 COMPARISON: 08/10/16 HISTORY: Weakness and dizziness. TECHNIQUE: Axial CT imaging at 5 mm intervals from the vertex through the skull base without contrast. FINDINGS: The imaged paranasal sinuses and mastoid air cells are well aerated. There is no displaced calvarial fracture. There is atherosclerotic calcification of the cavernous carotid arteries. There is mild diffuse prominence of the lateral ventricles, unchanged when compared to prior imaging. No intracranial hemorrhage, midline shift, or mass effect. There is mild diffuse stable cerebral vol ume loss. Stable scattered areas of dural calcification present. IMPRESSION: No significant interval change - no intracranial hemorrhage. POS: [facility]
[2018-03-27] MEDS ORDERED: Senokot S 8.6-50 MG TAB PO PRN (18:31)
[2018-03-27] MEDS ORDERED: Acetaminophen 325 MG TAB PO PRN (18:31)
[2018-03-27 19:22] LABS: Bilirubin Negative (Negative); Blood, Urine Large (Negative); Clarity TURBID (Clear); Glucose, Urine (Dipstick) 100 mg/dL (Negative); Leukocyte Large (Negative); Nitrite Negative (Negative); Protein, Urine (Dipstick) 30 mg/dL (Neg-Trace); Specific Gravity, Urine 1.011 (1.002-1.036); Urobilinogen 0.2 mg/dL (0.2-1.0); pH, Urine 5.5 (5.0-9.0)
[2018-03-27 19:23] LABS: Bacteria/HPF None Seen HPF (None Seen); Hyaline Casts/LPF 4-6 HYALINE CAST LPF (0-3 Hyaline); Pathc Cast-AUWi Flag 1.02 (0-2.49); Squamous Epithelial 0-3 HPF (0-3)
[2018-03-27 19:24] LABS: Yeast-AUWi Flag 60.5 (0-25.0)
[2018-03-27 19:31] LABS: Yeast-All Forms None Seen HPF (None Seen)
[2018-03-27 19:41] LABS: Troponin I 0.017 ng/mL (< 0.028)
[2018-03-27 20:10] VITALS: BMI 25.4
[2018-03-27] MEDS: Sodium Chloride 0.9% 1,000 ML IV SCH (20:54)
[2018-03-27] MEDS: Atorvastatin Calcium 20 MG TAB PO SCH (20:55)
[2018-03-27] MEDS: Famotidine 20 MG TAB PO SCH (20:55)
[2018-03-27] MEDS: Heparin 5,000 UNITS/ML VIAL SC SCH (20:56)
[2018-03-27] MEDS ORDERED: Ciprofloxacin Lactate/D5W 200 MG in Premix Bag 1 BAG IVPB SCH (21:00)
[2018-03-27 22:34] LABS: Troponin I 0.014 ng/mL (< 0.028)
[2018-03-27] MEDS ORDERED: Ondansetron ODT 4 MG TAB SL PRN (22:40)
[2018-03-27] MEDS ORDERED: Ondansetron PF 4 MG/2 ML Vial IVP PRN (22:40)
--- NOTE | 2018-03-28 02:11 | HP ---
CHIEF COMPLAINT: Dizziness and hypotension. HISTORY OF PRESENT ILLNESS: The patient is a very pleasant 77-year-old male who went to his cardiology appointment today for a followup after an ablation that was done on March 22. The patient was recently discharged from the hospital on March 23, to follow up with Cardiology status post ablation; however, when he went to get up from his seat, the patient felt very lightheaded and dizziness, and at that time, he was directed to the ER for further evaluation. The patient stated that prior to this event, he felt fine, did not have any upper respiratory tract symptoms. No cough. No fevers. No diarrhea. No abdominal pain. No chest pain. No shortness of breath. He felt just fine. The patient stated that he did not even take his morning medications because he was in a mayo trying to get up, to make it to the appointment today. The patient's who was at the bedside stated that the patient has not been drinking enough water and he has not been drinking enough water all day today also. The patient currently denies any chest pain, any nausea, vomiting, or diarrhea. In the ER, when the patient sat up to do orthostatics, he felt very dizzy, and at this time, he was given a liter of normal saline, which the patient stated after that he felt much better. PAST MEDICAL HISTORY: As of the following; 1. He has a history of atrial fibrillation, atrial flutter, status post ablation done on 03/22 or 03/23. 2. Non-sustained ventricular tachycardia, status post pacemaker defibrillator placement. 3. He has had recurrent UTI. 4. Diabetes type 2. 5. Benign prostatic hyperplasia. 6. Hyperlipidemia. 7. Early dementia. PAST SURGICAL HISTORY: 1. 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 2. Status post right hand skin graft. 3. Status post prostatectomy with dorsal slit on 03/11/2018. MEDICATIONS: Per his last discharge was the following; 1. Aspirin 325 mg daily. 2. Lipitor 20 mg at bedtime. 3. Finasteride 5 mg p.o. at bedtime. 4. Levemir 35 units subcu q.a.m. 5. Namenda 10 mg b.i.d. 6. Metformin 1000 mg p.o. b.i.d. 7. Metoprolol succinate 75 mg p.o. b.i.d. 8. Myrbetriq 25 mg p.o. q.a.m. 9. Entresto one tablet p.o. b.i.d. 10. Spironolactone 12.5 mg q.a.m. 11. Ciprofloxacin 500 mg p.o. b.i.d. ALLERGIES: HE HAS NO KNOWN DRUG ALLERGIES. FAMILY HISTORY: Father had an NC and mother had lymphoma. SOCIAL HISTORY: He is a former smoker. No recreational drug use. No alcohol use. He is a full code and he is . Lives with his . REVIEW OF SYSTEMS: All negative except for the ones mentioned above in the HPI. PHYSICAL EXAMINATION: VITAL SIGNS: Vital signs are as of the following; temperature of 98.0, respirations 16, oxygen 98% on room air, blood pressure 120/68, pulse of 78. GENERAL: He is awake, alert, and oriented x3. He does not appear in any distress. HEENT: Mucous membranes appear to be very dry. CV: S1 and S2 present. No murmurs, rubs, or gallops. Regular rate. LUNGS: Clear to auscultation. No rhonchi or wheezes noted. ABDOMEN: Obese. Bowel sounds are present x2. EXTREMITIES: No edema. Pedal pulses are present x2. NEUROVASCULAR: No focal deficits noted. SKIN: No cuts, lesions, or bruises noted. LABORATORY RESULTS: As of the following; WBCs of 13.2, hemoglobin of 12.1, hematocrit of 37.7, platelets of 544, and I did not see any bands or any significant elevation of neutrophils. Chemistry; sodium of 135, potassium of 4.1, BUN of 35, creatinine of 1.82. His glucose was 222. His troponin x1 was negative. He also had a chest x-ray, which was essentially negative and also had a brain CT that did not show any acute abnormalities. ASSESSMENT AND PLAN: The patient is a very pleasant 77-year-old male who presents to the hospital with complaints of dizziness. 1. Dizziness, near syncope, most likely secondary to orthostatic hypotension. The patient stated that he has not been taking in a lot of fluids. Definitely, he has a component of dehydration, which contributed to his hypotension. The patient stated that he did not take any of his medications this morning, may need to consider adjusting his blood pressure medications since the patient's states that he normally runs very low. We will also get an echocardiogram since his given recent ablation just to rule out any other etiologies. 2. Acute kidney injury, most likely prerenal. This is most likely secondary to his hypotension. We will continue to monitor. 3. Diabetes. We will continue his home medications. 4. BPH. We will hold off on his finasteride given his low blood pressure and we may start it probably back tomorrow. 5. Deep venous thrombosis prophylaxis, we will put the patient on some heparin subcu or sequential compression devices, and also we will consult Cardiology just to follow up. Job ID: [id number]
[2018-03-28 04:59] LABS: #Eosinphils 0.2 thou/uL (0.0-0.7); #Lymphocytes 2.4 thou/uL (1.20-3.40); #Monocytes 0.8 thou/uL (0.11-0.59); #Neutrophils 6.9 thou/uL (1.40-6.50); %Basophils 0.4 % (0.0-1.0); %Eosinophils 1.7 % (0.0-10.0); %Lymphocytes 22.9 % (21.0-51.0); %Monocytes 7.8 % (0.0-10.0); %Neutrophils 67.3 % (42.0-75.0); Hemoglobin 11.2 g/dL (14.0-18.0); Mean Corpuscular HGB CONC 33.3 g/dL (32.0-36.0); Mean Corpuscular Hemoglobin 28.6 pg (27.0-31.0); Mean Corpuscular Volume 85.8 fL (78.0-98.0); Mean Platelet Volume 6.2 fL (7.4-10.4); Platelet Count 465 thou/uL (130-400); RBC Distribution Width 13.4 % (11.5-14.5); Red Blood Cell (RBC) Count 3.93 mill/uL (4.70-6.10); White Blood Cell (WBC) Count 10.3 thou/uL (4.8-10.8)
[2018-03-28 05:09] LABS: Anion Gap 13 mmol/L (10-20); BUN (Urea Nitrogen) 29 mg/dL (8.4-25.7); Calc. Creatinine Clearance 58 mL/min (70-130); Calcium 9.1 mg/dL (7.8-10.44); Carbon Dioxide 23 mmol/L (23-31); Chloride 104 mmol/L (98-107); Estimated GFR-MDRD 59; Glucose 245 mg/dL (83-110); Potassium 3.9 mmol/L (3.5-5.1); Sodium 136 mmol/L (136-145)
[2018-03-28] MEDS: Aspirin 325 MG TAB PO SCH (08:13)
[2018-03-28] MEDS: Sodium Chloride 0.9% 1,000 ML IV SCH (08:13)
[2018-03-28] MEDS: Heparin 5,000 UNITS/ML VIAL SC SCH ×3 (08:14→21:45)
[2018-03-28] MEDS ORDERED: Dextrose 5% in Water 1,000 ML IV PRN (10:41)
[2018-03-28] MEDS ORDERED: Dextrose 50% Abboject 50 ML SYRINGE SLOW IVP PRN (10:41)
--- NOTE | 2018-03-28 13:31 | PDOC.PN ---
- Subjective Encounter Start Date: 03/28/18 Encounter Start Time: 10:15 Subjective: pt up in bed no complains - Objective Resuscitation Status - Order Detail: 03/27/18 18:31 Resuscitation Status Routine Resuscitation Status: FULL: Full Resuscitation Vital Signs & Weight: Vital Signs (12 hours) Temp Pulse Resp BP BP BP BP 03/28/18 12:11 97.6 F 78 16 116/55 L 03/28/18 09:55 74 146/59 H 102/59 L 121/59 L 03/28/18 07:37 98.2 F 75 18 115/55 L 03/28/18 03:45 98.2 F 80 16 114/59 L Pulse Ox 03/28/18 12:11 98 03/28/18 09:55 03/28/18 07:37 98 03/28/18 03:45 97 Weight Weight 171 lb I&O: 03/27/18 03/28/18 03/29/18 06:59 06:59 06:59 Intake Total 1190 Output Total 600 Balance 590 Result Diagrams: 03/28/18 04:36 03/28/18 04:36 Additional Labs: Accuchecks 03/28/18 03/27/18 10:08 21:09 POC Glucose 248 H 220 H Phys Exam - Physical Examination Respiratory: no wheezing, no rales, no rhonchi, wheezing present, clear to auscultation bilateral Cardiovascular: RRR, no significant murmur, no rub, gallop, irregular Gastrointestinal: soft, non-tender, no distention, positive bowel sounds Musculoskeletal: no edema, pulses present, edema present Dx/Plan (1) Near syncope Status: Acute (2) Hypotension Status: Acute (3) Acute kidney failure Status: Acute Comment: Improved, avoid nephrotoxic meds and limit contrast exposure, continue IVF's (4) DM type 2 (diabetes mellitus, type 2) Status: Chronic Qualifiers: Comment: Labile, continue ISS, resume Metformin in 24h, Lantus 35u sc qam - Plan will continue iv fluids pt was orthostatic -: will hold all bp meds -: will continue cipro. * . Review of Systems - Review of Systems Cardiovascular: negative: chest pain, palpitations, orthopnea, paroxysmal nocturnal dyspnea, edema, light headedness, other Gastrointestinal: negative: Nausea, Vomiting, Abdominal Pain, Diarrhea, Constipation, Melena, Hematochezia, Other Genitourinary: negative: Dysuria, Frequency, Incontinence, Hematuria, Retention , Other Musculoskeletal: negative: Neck Pain, Shoulder Pain, Arm Pain, Back Pain, Hand Pain, Leg Pain, Foot Pain, Other - Medications/Allergies Allergies/Adverse Reactions: Allergies Allergy/AdvReac Type Severity Reaction Status Date / Time No Known Drug Allergies Allergy Verified 03/27/18 19:48 Medications: Current Medications Acetaminophen (Tylenol) 650 mg PO Q4H PRN PRN Reason: Headache/Fever/Mild Pain (1-3) Aspirin (Aspirin) 325 mg PO DAILY [facility] Last Admin: 03/28/18 08:13 Dose: 325 mg Atorvastatin Calcium (Lipitor) 20 mg PO HS [facility] Last Admin: 03/27/18 20:55 Dose: 20 mg Dextrose/Water (Dextrose 50%) 25 gm SLOW IVP PRN PRN PRN Reason: Hypoglycemia Famotidine (Pepcid) 20 mg PO QPM [facility] Last Admin: 03/27/18 20:55 Dose: 20 mg Finasteride (Proscar) 5 mg PO [facility] Glucagon (Glucagon) 1 mg IM PRN PRN PRN Reason: Hypoglycemia Heparin Sodium (Porcine) (Heparin) 5,000 units SC TID [facility] Last Admin: 03/28/18 08:14 Dose: 5,000 units Sodium Chloride (Normal Saline 0.9%) 1,000 mls @ 75 mls/hr IV .[id number] [facility] Last Admin: 03/28/18 08:13 Dose: 1,000 mls Ciprofloxacin/Dextrose 400 mg/ (Device) 200 mls @ 100 mls/hr IVPB Q12HR [facility] Last Admin: 03/28/18 08:13 Dose: 200 mls Dextrose/Water (D5w) 1,000 mls @ 0 mls/hr IV .Q0M PRN PRN Reason: Hypoglycemia Insulin Glargine 35 units/ (Miscellaneous Medication) 0.35 mls @ 0 mls/hr SC QAM [facility] Insulin Human Lispro (Humalog) 0 units SC .MILD SLIDING SCALE PRN PRN Reason: Mild Correctional Scale Memantine (Namenda) 10 mg PO BID [facility] Last Admin: 03/28/18 08:14 Dose: 10 mg Miscellaneous Medication (Pharmacy To Dose) 1 each IVPB PRN PRN PRN Reason: Pharmacy to dose Senna/Docusate Sodium (Senokot S) 2 tab PO BIDPRN PRN PRN Reason: Constipation Sodium Chloride (Flush - Normal Saline) 10 ml IVF Q12HR [facility] Last Admin: 03/28/18 08:14 Dose: Not Given Sodium Chloride (Flush - Normal Saline) 10 ml IVF PRN PRN PRN Reason: Saline Flush
[2018-03-28] MEDS: HumaLOG 300 UNITS/3 ML VIAL SC PRN (17:45)
--- NOTE | 2018-03-28 19:14 | CON ---
DATE OF CONSULTATION: 03/28/2018 REASON FOR CONSULTATION: Chronic heart failure. HISTORY OF PRESENT ILLNESS: Mr. Coronado is a very pleasant 77-year-old white gentleman, very well known to myself, who comes to the hospital for weakness. He was admitted last week for complicated urinary tract infection due to recurrent UTIs. He had a recent instrumentation of his prostate. He had TURP. He was started on antibiotics. He was found to be in atrial flutter, underwent a flutter ablation successfully converting him into sinus rhythm. He has remained in sinus since. I saw him in the office yesterday and he remained in sinus rhythm; however, he was complaining of severe weakness to the point where he stood up and he had to hold on to the wall and to his to even give the first step when sitting up from the chair. Secondary to this, he was sent to the ER, where he was found to have an acute kidney injury and admitted. He denies any chest pain, tightness, pressure. No shortness of breath. He was started on ciprofloxacin IV, secondary to possible recurrent UTI. However, this just seems to be remnants of the recent infection. He was given normal saline 75 mL an hour, and he already feels much better. He was probably dry. PAST MEDICAL HISTORY: 1. Ischemic cardiomyopathy, last EF at 40% to 45%. 2. Atrial flutter, status post ablation. 3. Nonsustained VT, status post AICD placement. 4. Recurrent UTIs. 5. Type 2 diabetes. 6. BPH. 7. Hyperlipidemia. 8. Coronary artery disease, nonrevascularizable. 9. Dementia. PAST SURGICAL HISTORY: 1. Status post amputation of 1st and 2nd toes. 2. Status post orchiectomy. 3. Status post TURP. 4. Right hand skin graft. MEDICATIONS: Outpatient medications include, 1. Aspirin 325 a day. 2. Lipitor 20 mg at bedtime. 3. Finasteride 5 mg at bedtime. 4. Levemir. 5. Namenda. 6. Metformin. 7. Metoprolol tartrate 75 mg b.i.d. 8. Myrbetriq. 9. Entresto 24/ b.i.d. 10. Spironolactone 12.5 mg q.a.m. 11. Cipro 500 mg p.o. b.i.d. ALLERGIES: NO KNOWN DRUG ALLERGIES. FAMILY HISTORY: Father with PA. Mother with lymphoma. SOCIAL HISTORY: Former smoker. No drug or alcohol use. REVIEW OF SYSTEMS: A 12-point review of systems was done and was found to be negative other than stated in the history of present illness. PHYSICAL EXAMINATION: VITAL SIGNS: Temperature 99.3, pulse 94, respiratory rate 18, saturating 92% on room air, blood pressure 143/79. He went from 146/59 sitting to 102/59 standing. GENERAL: Awake, alert, oriented x3, in no distress. HEENT: Normocephalic, atraumatic. NECK: Supple. LUNGS: Clear. CARDIOVASCULAR: S1, S2. No S3, S4. ABDOMEN: Soft. Positive bowel sounds. EXTREMITIES: No edema. SKIN: Warm and dry. LABORATORY DATA: Laboratory work was reviewed. CBC was reviewed. Chemistry was reviewed. Creatinine was 1.8 yesterday, down to 1.2 after fluids. Troponin is negative x3. UA with 30 protein, 100 glucose, large blood, large amount of leukocyte esterase with greater than 20 red blood cells, more than 50 white blood cells. Urine culture is negative so far. CT of the brain was unremarkable. Chest x-ray showed no acute findings. ASSESSMENT AND PLAN: 1. Weakness. 2. Chronic systolic heart failure, stable. 3. Volume depletion. 4. Acute on chronic kidney injury. 5. Recurrent urinary tract infections. PLAN: 1. Agree with continued antibiotics. 2. I agree with IV fluids. I think he was a little bit volume down and has not been eating that well in the last few days. 3. Restart home medications once blood pressure allows. We may have to hold Aldactone and Entresto for a few days before restarting. Thank you for letting me to participate in the care of your patient. We will follow. Job ID: [id number]
[2018-03-28] MEDS ORDERED: Finasteride 5 MG TAB PO SCH (21:00)
[2018-03-28] MEDS: Atorvastatin Calcium 20 MG TAB PO SCH (21:44)
[2018-03-28] MEDS: Famotidine 20 MG TAB PO SCH (21:44)
[2018-03-29] MEDS: Sodium Chloride 0.9% 1,000 ML IV SCH ×2 (00:08→10:47)
[2018-03-29 08:18] LABS: Anion Gap 11 mmol/L (10-20); BUN (Urea Nitrogen) 17 mg/dL (8.4-25.7); Calc. Creatinine Clearance 61 mL/min (70-130); Calcium 8.7 mg/dL (7.8-10.44); Carbon Dioxide 25 mmol/L (23-31); Chloride 106 mmol/L (98-107); Estimated GFR-MDRD 65; Glucose 206 mg/dL (83-110); Magnesium 1.3 mg/dL (1.6-2.6); Potassium 4.1 mmol/L (3.5-5.1); Sodium 138 mmol/L (136-145)
[2018-03-29] MEDS ORDERED: Non-Formulary Item 1 EACH (Levemir Flexpen [Levemir Flexpen] 35 UNITS) SC SCH (09:00)
[2018-03-29] MEDS: Aspirin 325 MG TAB PO SCH (09:21)
[2018-03-29] MEDS: Heparin 5,000 UNITS/ML VIAL SC SCH ×3 (09:22→20:44)
[2018-03-29] MEDS: Insulin Glargine 35 UNITS in Pre-Filled Syringe SC SCH (09:22)
[2018-03-29] MEDS: HumaLOG 300 UNITS/3 ML VIAL SC PRN ×4 (09:23→20:45)
[2018-03-29] MEDS ORDERED: Magnesium 2 GM/50 ML 2 GM in Premix Bag 1 BAG IVPB SCH (09:45)
[2018-03-29 13:06] LABS: Phosphorus 2.3 mg/dL (2.3-4.7)
--- NOTE | 2018-03-29 14:32 | PDOC.PN ---
- Subjective Encounter Start Date: 03/29/18 Encounter Start Time: 11:15 Subjective: pt up in bed does not feel well today still orthostatic - Objective Resuscitation Status - Order Detail: 03/27/18 18:31 Resuscitation Status Routine Resuscitation Status: FULL: Full Resuscitation Vital Signs & Weight: Vital Signs (12 hours) Temp Pulse Resp BP BP BP BP 03/29/18 08:57 117/55 L 87/64 L 127/57 L 03/29/18 08:36 99.5 F 73 16 111/59 L 03/29/18 03:27 97.8 F 71 16 145/65 H Pulse Ox 03/29/18 08:57 03/29/18 08:36 97 03/29/18 03:27 97 Weight Weight 167 lb 9.6 oz I&O: 03/28/18 03/29/18 03/30/18 06:59 06:59 06:59 Intake Total 3960 Output Total 1550 Balance 2410 Result Diagrams: 03/28/18 04:36 03/29/18 07:48 Additional Labs: Accuchecks 03/28/18 03/28/18 16:34 06:05 POC Glucose 273 H 238 H Phys Exam - Physical Examination Neck: no nodes, no JVD, supple, full ROM Respiratory: no wheezing, no rales, no rhonchi, wheezing present, clear to auscultation bilateral Cardiovascular: RRR, no significant murmur, no rub, gallop, irregular Gastrointestinal: soft, non-tender, no distention, positive bowel sounds Musculoskeletal: no edema, pulses present, edema present Dx/Plan (1) Near syncope Status: Acute (2) Hypotension Status: Acute (3) Acute kidney failure Status: Acute Comment: Improved, avoid nephrotoxic meds and limit contrast exposure, continue IVF's (4) DM type 2 (diabetes mellitus, type 2) Status: Chronic Qualifiers: Comment: Labile, continue ISS, resume Metformin in 24h, Lantus 35u sc qam - Plan pt is very orthostatic will check cotisol level -: will check tsh. will continue to hold bp meds -: will hold finastride since that can cause hypotension * . Review of Systems - Review of Systems Respiratory: negative: Cough, Dry, Shortness of Breath, Hemoptysis, SOB with Excertion, Pleuritic Pain, Sputum, Wheezing Cardiovascular: negative: chest pain, palpitations, orthopnea, paroxysmal nocturnal dyspnea, edema, light headedness, other Gastrointestinal: negative: Nausea, Vomiting, Abdominal Pain, Diarrhea, Constipation, Melena, Hematochezia, Other Genitourinary: negative: Dysuria, Frequency, Incontinence, Hematuria, Retention , Other - Medications/Allergies Allergies/Adverse Reactions: Allergies Allergy/AdvReac Type Severity Reaction Status Date / Time No Known Drug Allergies Allergy Verified 03/27/18 19:48 Medications: Current Medications Acetaminophen (Tylenol) 650 mg PO Q4H PRN PRN Reason: Headache/Fever/Mild Pain (1-3) Aspirin (Aspirin) 325 mg PO DAILY [facility] Last Admin: 03/29/18 09:21 Dose: 325 mg Atorvastatin Calcium (Lipitor) 20 mg PO HS [facility] Last Admin: 03/28/18 21:44 Dose: 20 mg Dextrose/Water (Dextrose 50%) 25 gm SLOW IVP PRN PRN PRN Reason: Hypoglycemia Famotidine (Pepcid) 20 mg PO QPM [facility] Last Admin: 03/28/18 21:44 Dose: 20 mg Finasteride (Proscar) 5 mg PO HS [facility] Last Admin: 03/28/18 21:44 Dose: 5 mg Glucagon (Glucagon) 1 mg IM PRN PRN PRN Reason: Hypoglycemia Heparin Sodium (Porcine) (Heparin) 5,000 units SC TID [facility] Last Admin: 03/29/18 09:22 Dose: 5,000 units Ciprofloxacin/Dextrose 400 mg/ (Device) 200 mls @ 100 mls/hr IVPB Q12HR [facility] Last Admin: 03/29/18 10:18 Dose: 200 mls Dextrose/Water (D5w) 1,000 mls @ 0 mls/hr IV .Q0M PRN PRN Reason: Hypoglycemia Insulin Glargine 35 units/ (Miscellaneous Medication) 0.35 mls @ 0 mls/hr SC QAM [facility] Last Admin: 03/29/18 09:22 Dose: 0.35 mls Insulin Human Lispro (Humalog) 0 units SC .MILD SLIDING SCALE PRN PRN Reason: Mild Correctional Scale Last Admin: 03/29/18 12:34 Dose: 4 unit Insulin Human Lispro (Humalog) 0 units SC .BEDTIME SLIDING SC PRN; Protocol PRN Reason: BEDTIME SLIDING SCALE Miscellaneous Medication (Pharmacy To Dose) 1 each IVPB PRN PRN PRN Reason: Pharmacy to dose Senna/Docusate Sodium (Senokot S) 2 tab PO BIDPRN PRN PRN Reason: Constipation Sodium Chloride (Flush - Normal Saline) 10 ml IVF Q12HR [facility] Last Admin: 03/29/18 09:22 Dose: Not Given Sodium Chloride (Flush - Normal Saline) 10 ml IVF PRN PRN PRN Reason: Saline Flush
--- NOTE | 2018-03-29 14:39 | PDOC.CTH ---
Cardiology Progress Note - Subjective No new issues. He felt better yesterday, he is weaker again today. - Objective Vital Signs Temp Pulse Resp BP BP BP BP 03/29/18 08:57 117/55 L 87/64 L 127/57 L 03/29/18 08:36 99.5 F 73 16 111/59 L 03/29/18 03:27 97.8 F 71 16 145/65 H Pulse Ox 03/29/18 08:57 03/29/18 08:36 97 03/29/18 03:27 97 Weight 167 lb 9.6 oz 03/28/18 03/29/18 03/30/18 06:59 06:59 06:59 Intake Total 3960 Output Total 1550 Balance 2410 - Physical Examination General/Neuro: NAD Neck: no JVD present Lungs: CTA, unlabored respirations Heart: RRR Abdomen: NT/ND Extremities: other: (no edema) - Telemetry Telemetry Rhythm: NSR - Labs Result Diagrams: 03/28/18 04:36 03/29/18 07:48 Troponin/CKMB Troponin I 0.014 ng/mL (< 0.028) 03/27/18 22:00 - Assessment/Plan 1. Weakness 2. RALPH, resolved. 3. Dehydration. Resolved. 4. Aflutter s/p ablation a few days ago 5. UTI, recurrent. 6. Orthostatic hypotension. PLAN: - Judicious use of fluids. - Continue to hold CHF meds due to orthostatic hypotension. - LV function at 45-50% on echo. - Consider consultation with Dr. Stewart for recurrent UTI's
[2018-03-29] MEDS: Atorvastatin Calcium 20 MG TAB PO SCH (20:43)
[2018-03-29] MEDS: Famotidine 20 MG TAB PO SCH (20:44)
[2018-03-30 09:39] LABS: Anion Gap 12 mmol/L (10-20); BUN (Urea Nitrogen) 14 mg/dL (8.4-25.7); Calc. Creatinine Clearance 63 mL/min (70-130); Calcium 9.2 mg/dL (7.8-10.44); Carbon Dioxide 26 mmol/L (23-31); Chloride 106 mmol/L (98-107); Estimated GFR-MDRD 69; Glucose 182 mg/dL (83-110); Magnesium 1.6 mg/dL (1.6-2.6); Potassium 4.1 mmol/L (3.5-5.1); Sodium 140 mmol/L (136-145)
[2018-03-30] MEDS: Aspirin 325 MG TAB PO SCH (09:55)
[2018-03-30] MEDS: Cyanocobalamin (Vitamin B-12) 1,000 MCG TAB PO SCH (09:56)
[2018-03-30] MEDS: Heparin 5,000 UNITS/ML VIAL SC SCH ×3 (09:56→20:27)
[2018-03-30] MEDS: Insulin Glargine 35 UNITS in Pre-Filled Syringe SC SCH (09:58)
[2018-03-30] MEDS: HumaLOG 300 UNITS/3 ML VIAL SC PRN ×3 (12:37→22:00)
--- NOTE | 2018-03-30 13:48 | EKG ---
Test Reason : HYPOTENSION Blood Pressure : / mmHG Vent. Rate : 074 BPM Atrial Rate : 074 BPM P-R Int : 170 ms QRS Dur : 092 ms QT Int : 410 ms P-R-T Axes : 043 012 -22 degrees QTc Int : 455 ms Normal sinus rhythm Nonspecific T wave abnormality Abnormal ECG Confirmed by KILLIAN HUBER ([id number]), purchasing expeditor MARIA ELENA BARCENAS ([id number] on 03/30/2018 1:47:57 PM Referred By: Confirmed By:KILLIAN HUBER
--- NOTE | 2018-03-30 15:12 | PDOC.PN ---
- Subjective Encounter Start Date: 03/30/18 Encounter Start Time: 10:15 Subjective: pt up in bed no complains - Objective Resuscitation Status - Order Detail: 03/27/18 18:31 Resuscitation Status Routine Resuscitation Status: FULL: Full Resuscitation Vital Signs & Weight: Vital Signs (12 hours) Temp Pulse Resp BP BP BP Pulse Ox 03/30/18 12:09 89 111/56 L 03/30/18 12:08 82 131/62 98 03/30/18 12:07 84 141/71 H 97 03/30/18 08:02 98.2 F 96 24 H 104/60 94 L 03/30/18 08:00 98.2 F 96 24 H 104/60 94 L 03/30/18 04:06 98.0 F 72 18 136/61 98 Weight Weight 164 lb 14.4 oz I&O: 03/29/18 03/30/18 03/31/18 06:59 06:59 06:59 Intake Total 3960 1427 Output Total 1550 1438 Balance 2410 -11 Result Diagrams: 03/28/18 04:36 03/30/18 05:47 Additional Labs: Accuchecks 03/29/18 16:36 POC Glucose 252 H Phys Exam - Physical Examination Neck: no nodes, no JVD, supple, full ROM Respiratory: no wheezing, no rales, no rhonchi, wheezing present, clear to auscultation bilateral Cardiovascular: RRR, no significant murmur, no rub, gallop, irregular Gastrointestinal: soft, non-tender, no distention, positive bowel sounds Dx/Plan (1) Near syncope Status: Acute (2) Hypotension Status: Acute (3) Acute kidney failure Status: Acute Comment: Improved, avoid nephrotoxic meds and limit contrast exposure, continue IVF's (4) DM type 2 (diabetes mellitus, type 2) Status: Chronic Qualifiers: Comment: Labile, continue ISS, resume Metformin in 24h, Lantus 35u sc qam - Plan pt's ortho are still positve but improved -: pt had TURP last admission, recurrent uti, but cx indicates yeast -: he was tx with diflucan. cardio recommeded ID consult will do. -: pt will need rehab vs snf * . Review of Systems - Review of Systems ENT: negative: Ear Pain, Ear Discharge, Nose Pain, Nose Discharge, Nose Congestion, Mouth Pain, Mouth Swelling, Throat Pain, Throat Swelling, Other Respiratory: negative: Cough, Dry, Shortness of Breath, Hemoptysis, SOB with Excertion, Pleuritic Pain, Sputum, Wheezing Cardiovascular: negative: chest pain, palpitations, orthopnea, paroxysmal nocturnal dyspnea, edema, light headedness, other Gastrointestinal: negative: Nausea, Vomiting, Abdominal Pain, Diarrhea, Constipation, Melena, Hematochezia, Other Genitourinary: negative: Dysuria, Frequency, Incontinence, Hematuria, Retention , Other - Medications/Allergies Allergies/Adverse Reactions: Allergies Allergy/AdvReac Type Severity Reaction Status Date / Time No Known Drug Allergies Allergy Verified 03/27/18 19:48 Medications: Current Medications Acetaminophen (Tylenol) 650 mg PO Q4H PRN PRN Reason: Headache/Fever/Mild Pain (1-3) Aspirin (Aspirin) 325 mg PO DAILY [facility] Last Admin: 03/30/18 09:55 Dose: 325 mg Atorvastatin Calcium (Lipitor) 20 mg PO HS [facility] Last Admin: 03/29/18 20:43 Dose: 20 mg Cyanocobalamin (Vitamin B-12) 1,000 mcg PO DAILY [facility] Last Admin: 03/30/18 09:56 Dose: 1,000 mcg Dextrose/Water (Dextrose 50%) 25 gm SLOW IVP PRN PRN PRN Reason: Hypoglycemia Famotidine (Pepcid) 20 mg PO QPM [facility] Last Admin: 03/29/18 20:44 Dose: 20 mg Glucagon (Glucagon) 1 mg IM PRN PRN PRN Reason: Hypoglycemia Heparin Sodium (Porcine) (Heparin) 5,000 units SC TID [facility] Last Admin: 03/30/18 09:56 Dose: 5,000 units Ciprofloxacin/Dextrose 400 mg/ (Device) 200 mls @ 100 mls/hr IVPB Q12HR [facility] Last Admin: 03/30/18 12:39 Dose: 200 mls Dextrose/Water (D5w) 1,000 mls @ 0 mls/hr IV .Q0M PRN PRN Reason: Hypoglycemia Insulin Glargine 35 units/ (Miscellaneous Medication) 0.35 mls @ 0 mls/hr SC QAM [facility] Last Admin: 03/30/18 09:58 Dose: 0.35 mls Insulin Human Lispro (Humalog) 0 units SC .MILD SLIDING SCALE PRN PRN Reason: Mild Correctional Scale Last Admin: 03/30/18 12:37 Dose: 5 unit Insulin Human Lispro (Humalog) 0 units SC .BEDTIME SLIDING SC PRN; Protocol PRN Reason: BEDTIME SLIDING SCALE Last Admin: 03/29/18 20:45 Dose: 2 unit Miscellaneous Medication (Pharmacy To Dose) 1 each IVPB PRN PRN PRN Reason: Pharmacy to dose Senna/Docusate Sodium (Senokot S) 2 tab PO BIDPRN PRN PRN Reason: Constipation Sodium Chloride (Flush - Normal Saline) 10 ml IVF Q12HR [facility] Last Admin: 03/29/18 20:50 Dose: 10 ml Sodium Chloride (Flush - Normal Saline) 10 ml IVF PRN PRN PRN Reason: Saline Flush
[2018-03-30] MEDS ORDERED: Magnesium 2 GM/50 ML 2 GM in Premix Bag 1 BAG IVPB SCH (15:15)
[2018-03-30] MEDS: Famotidine 20 MG TAB PO SCH (20:22)
[2018-03-30] MEDS: Atorvastatin Calcium 20 MG TAB PO SCH (20:26)
[2018-03-31 04:09] LABS: Hemoglobin 11.8 g/dL (14.0-18.0); Platelet Count 490 thou/uL (130-400)
[2018-03-31 04:24] LABS: Anion Gap 9 mmol/L (10-20); BUN (Urea Nitrogen) 17 mg/dL (8.4-25.7); Calc. Creatinine Clearance 67 mL/min (70-130); Carbon Dioxide 27 mmol/L (23-31); Chloride 106 mmol/L (98-107); Estimated GFR-MDRD 71; Glucose 151 mg/dL (83-110); Potassium 4.1 mmol/L (3.5-5.1); Sodium 138 mmol/L (136-145)
[2018-03-31] MEDS ORDERED: Fluconazole In NaCl,Iso-Osm 100 MG in Premix Bag 1 BAG IVPB SCH (09:00)
[2018-03-31] MEDS: Aspirin 325 MG TAB PO SCH (09:27)
[2018-03-31] MEDS: Heparin 5,000 UNITS/ML VIAL SC SCH ×3 (09:28→20:45)
[2018-03-31] MEDS: Insulin Glargine 35 UNITS in Pre-Filled Syringe SC SCH (09:28)
[2018-03-31] MEDS: metFORMIN 500 MG TAB PO SCH ×2 (09:28→16:30)
[2018-03-31] MEDS: Cyanocobalamin (Vitamin B-12) 1,000 MCG TAB PO SCH (09:29)
[2018-03-31] MEDS: Cipro 250 MG TAB PO SCH ×2 (09:29→20:45)
[2018-03-31] MEDS: Fluconazole In NaCl,Iso-Osm 100 MG in Admixture Fee 1 EACH IVPB SCH (10:24)
[2018-03-31] MEDS: Sacubitril 24.5 MG/Valsartan 25.5 MG TABLET PO SCH ×2 (10:24→20:45)
[2018-03-31] MEDS: HumaLOG 300 UNITS/3 ML VIAL SC PRN ×2 (11:37→20:48)
--- NOTE | 2018-03-31 16:34 | CT ---
CT ABDOMEN NONCONTRAST CT PELVIS NONCONTRAST: (urolithiasis protocol) DATE: 03-31-18 HISTORY: 68-year-old male with urosepsis; urinary tract infection in bladder, yeast. COMPARISON: None available. TECHNIQUE: IV injection of iodinated contrast media: none Oral contrast media: none FINDINGS: Other than for urolithiasis, the lack of IV and oral contrast limits the evaluation. In the left pelvic cavity, located between the left side of the dome of the urinary bladder and a loo p of proximal sigmoid colon, there is a region of prominent fat stranding representing edema/inflamma tion, surrounding a round, approximately 1.5 x 1.5 x 1.5 cm mass with intermediate density rim and sl ightly low density center (axial image 77 of 100, series 2; coronal image 68 of 144, series 601). This is very close to the adjacent outer wall of the urinary bladder. The urinary bladder wall is dif fusely thickened. The urinary bladder is filled with a low volume of urine at the time of this scan. There is no calculus within the urinary bladder, ureters, or kidneys. There is no hydronephrosis. The re is an approximately 1 cm calcified gallstone in the proximal gallbladder. No signs of acute cholec ystitis. Within the limitations of a noncontrast scan, no major pathology is identified involving heidi ateral kidneys, adrenals, pancreas, liver, or spleen. No small bowel dilation. Normal appendix. No as cites or pneumoperitoneum. Minimal amount of fluid or edema in the pelvis, along the perirectal fasci a. No pneumoperitoneum. Lung bases are grossly clear. IMPRESSION: 1. Focal edema consistent with an inflammatory process in the left side of the pelvic cavity, between the urinary bladder and proximal sigmoid colon. There is a round mass at the center of this which ma y represent a large diverticulum, and this could represent an acute diverticulitis very close to the urinary bladder. 2. Diffuse mural thickening of the decompressed urinary bladder. It is uncertain whether this mural t hickening is merely due to non-distension or presents cystitis. 3. No urolithiasis or obstructive uropathy. 4. Cholelithiasis without acute cholecystitis. 5. Given the history of UTI of the bladder, a CT of the pelvis with water soluble rectal contrast med ia may be useful to search for a colovesical fistula, if clinically indicated. ENMA Macias POS: NIVIA
--- NOTE | 2018-03-31 18:12 | CON ---
DATE OF CONSULTATION: 03/31/2018 HISTORY OF PRESENT ILLNESS: Mr. 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 He had recurrent UTIs subsequently, and he had a transurethral resection of prostate. He had numerous prostatic stones identified and Pseudomonas species was retrieved, treated with Cipro and then he was admitted with general malaise, chills, and neutrophilia. The organism was susceptible to quinolones. The patient improved and he was discharged home. A ARMANDO demonstrated no clots, mitral and tricuspid regurg, mild. He did have Mi albicans identified on urine culture from March 19. He now is readmitted. According to the , when he went back home he felt not back to himself. Two days after discharge, he has followed up with Dr. Brionse on Sunday and he still continued feeling lightheaded and from Dr. Briones's office, he was sent to the emergency room because he was found to be hypotensive. He denied any fever. No respiratory symptoms. No abdominal pain or diarrhea. He was voiding without problems. PAST MEDICAL HISTORY: 1. Atrial fibrillation, flutter with ablation. 2. Orchiepididymitis, which required one-sided orchiectomy. 3. Recurrent UTIs. 4. Type 2 diabetes. 5. Prostatitis with recent TURP. 6. Dementia. PAST SURGICAL HISTORY: Includes amputation of left 1st and 2nd toes and the above surgeries. CURRENT MEDICATIONS: Include; 1. Aspirin. 2. Lipitor. 3. Cipro. 4. Dextrose. 5. Fluconazole. 6. Insulin. FAMILY HISTORY: Noncontributory. SOCIAL HISTORY: Former smoker. . Lives with his . PHYSICAL EXAMINATION: VITAL SIGNS: T-max 99.9, blood pressure 120/60, pulse 69, respirations 16, and O2 saturation 98%. SKIN: The patient has a wound in the scrotal area as on the previous orchiectomy, fresh granulation tissue at the base, the borders are little bit erythematous. He has a peripheral IV access. No lymphadenopathy. HEENT: Ocular movements conjugate. NECK: Supple. LUNGS: Symmetric air entry without crackles or wheezing. HEART: S1 and S2. Regular rate without murmurs. ABDOMEN: Soft, not distended or tender. No ascites. No bladder distention. EXTREMITIES: He moves extremities equally. NEUROLOGIC: He is awake. He has a little bit of cognitive impairment with recollection deficit. His replies are bit sluggish. LABORATORY DATA: White cell count 13.2 and now 10.3, hemoglobin 12, and platelets 544 and now 490, and 73% neutrophils. Creatinine 1.02. The liver profile was normal. CK was normal. Albumin 3.2. Urinalysis with greater than 50 wbc's. Culture showed Mi albicans. Previous imaging studies, testicular ultrasound and chest CT. ASSESSMENT: 1. Supraventricular tachycardia with ablation. 2. Prostatitis with recent transurethral resection of the prostate with chronic infection with Pseudomonas. He also had Mi albicans identified, which was not treated upon discharge. Now, he returns with what appears to be volume depletion and some element of inflammatory changes in the peripheral blood with mild neutrophilia and abnormal urinalysis. We will do a CT stone protocol at this time and continue current antimicrobials. Monitor cultures. Job ID: [id number] [facility]
[2018-03-31] MEDS: Atorvastatin Calcium 20 MG TAB PO SCH (20:45)
[2018-03-31] MEDS: Famotidine 20 MG TAB PO SCH (20:45)
[2018-04-01] MEDS: Cipro 250 MG TAB PO SCH (06:05)
--- NOTE | 2018-04-01 08:20 | PDOC.PN ---
- Subjective Encounter Start Date: 03/31/18 Encounter Start Time: 08:19 Subjective: feeling better, has been walking with PT. No complains - Objective Resuscitation Status - Order Detail: 03/27/18 18:31 Resuscitation Status Routine Resuscitation Status: FULL: Full Resuscitation MAR Reviewed: Yes Vital Signs & Weight: Vital Signs (12 hours) Temp Pulse Resp BP BP Pulse Ox 04/01/18 07:30 97.6 F 73 16 118/56 L 96 04/01/18 03:46 97.8 F 69 16 97/51 L 96 03/31/18 20:44 98 F 64 16 118/57 L 99 Weight Weight 171 lb 5 oz I&O: 03/31/18 04/01/18 04/02/18 06:59 06:59 06:59 Intake Total 390 970 Output Total 525 Balance -135 970 Result Diagrams: 03/31/18 03:40 03/31/18 03:40 Additional Labs: Accuchecks 04/01/18 03/31/18 03/31/18 05:21 20:20 16:38 POC Glucose 126 H 219 H 177 H 03/31/18 11:10 POC Glucose 220 H Phys Exam - Physical Examination HEENT: PERRLA, moist MMs, sclera anicteric, TM's clear, oral pharynx no lesions , 2+ tonsils Neck: no nodes, no JVD, supple, full ROM Respiratory: no wheezing, no rales Cardiovascular: RRR, no significant murmur, no rub Gastrointestinal: soft, non-tender, no distention Musculoskeletal: no edema, pulses present Neurological: non-focal, normal sensation, moves all 4 limbs Lymphatic: no nodes Psychiatric: normal affect, A&O x 3 Dx/Plan (1) Recurrent UTI (urinary tract infection) Code(s): N39.0 - URINARY TRACT INFECTION, SITE NOT SPECIFIED Status: Acute Comment: s/p TURP and cystoscopy 03/11/18. Urine cx with Mi, treat with Fluconazole. 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
[2018-04-01] MEDS: Cyanocobalamin (Vitamin B-12) 1,000 MCG TAB PO SCH (09:21)
[2018-04-01] MEDS: Heparin 5,000 UNITS/ML VIAL SC SCH (09:22)
[2018-04-01] MEDS: metFORMIN 500 MG TAB PO SCH (09:22)
[2018-04-01] MEDS: Aspirin 325 MG TAB PO SCH (09:22)
[2018-04-01] MEDS: Sacubitril 24.5 MG/Valsartan 25.5 MG TABLET PO SCH (09:23)
[2018-04-01] MEDS: Insulin Glargine 35 UNITS in Pre-Filled Syringe SC SCH (09:23)
[2018-04-01] MEDS: Fluconazole In NaCl,Iso-Osm 100 MG in Admixture Fee 1 EACH IVPB SCH (10:19)
[2018-04-01 12:20] VITALS: BP 102/59; TEMP 98.1
--- NOTE | 2018-04-01 15:06 | PDOC.PN ---
- Subjective Encounter Start Date: 04/01/18 Encounter Start Time: 15:04 Subjective: doing well - Objective Resuscitation Status - Order Detail: 03/27/18 18:31 Resuscitation Status Routine Resuscitation Status: FULL: Full Resuscitation MAR Reviewed: Yes Vital Signs & Weight: Vital Signs (12 hours) Temp Pulse Resp BP BP Pulse Ox 04/01/18 11:12 98.1 F 72 16 102/59 L 94 L 04/01/18 09:10 96 04/01/18 07:30 97.6 F 73 16 118/56 L 96 04/01/18 03:46 97.8 F 69 16 97/51 L 96 Weight Weight 171 lb 5 oz I&O: 03/31/18 04/01/18 04/02/18 06:59 06:59 06:59 Intake Total 390 970 Output Total 525 Balance -135 970 Result Diagrams: 03/31/18 03:40 03/31/18 03:40 Additional Labs: Accuchecks 04/01/18 04/01/18 03/31/18 11:05 05:21 20:20 POC Glucose 205 H 126 H 219 H 03/31/18 16:38 POC Glucose 177 H Radiology Reviewed by me: Yes Phys Exam - Physical Examination HEENT: PERRLA, moist MMs, sclera anicteric, TM's clear, oral pharynx no lesions , 2+ tonsils Neck: no nodes, no JVD, supple, full ROM Respiratory: no wheezing, no rales Cardiovascular: RRR, no significant murmur Gastrointestinal: soft, non-tender, no distention, positive bowel sounds Musculoskeletal: no edema Lymphatic: no nodes Psychiatric: normal affect, A&O x 3 Skin: no rash, normal turgor, cap refill <2 seconds Dx/Plan (1) Recurrent UTI (urinary tract infection) Code(s): N39.0 - URINARY TRACT INFECTION, SITE NOT SPECIFIED Status: Acute Comment: s/p TURP and cystoscopy 03/11/18. Urine cx with Mi, treat with Fluconazole. (2) S/P TURP Code(s): Z90.79 - ACQUIRED ABSENCE OF OTHER GENITAL ORGAN(S) Status: Acute Comment: Supportive mgmt, Urology consulted - Plan * .
--- NOTE | 2018-04-01 18:08 | PDOC.CTH ---
Cardiology Progress Note - Subjective Doing well. No new issues. Remains pleasantly confused. - Objective Vital Signs Temp Pulse Resp BP Pulse Ox 04/01/18 11:12 98.1 F 72 16 102/59 L 94 L 04/01/18 09:10 96 04/01/18 07:30 97.6 F 73 16 118/56 L 96 Weight 171 lb 5 oz 03/31/18 04/01/18 04/02/18 06:59 06:59 06:59 Intake Total 390 970 Output Total 525 Balance -135 970 - Physical Examination General/Neuro: NAD Neck: no JVD present Lungs: CTA, unlabored respirations Heart: RRR Abdomen: NT/ND Extremities: other: (no edema) - Telemetry Telemetry Rhythm: NSR - Labs Result Diagrams: 03/31/18 03:40 03/31/18 03:40 Troponin/CKMB Troponin I 0.014 ng/mL (< 0.028) 03/27/18 22:00 - Assessment/Plan 1. Weakness 2. RALPH, resolved. 3. Dehydration. Resolved. 4. Aflutter s/p ablation a few days ago 5. UTI, recurrent. 6. Orthostatic hypotension. PLAN: - Will continue to hold any BP meds or CHF meds that affect BP. - Agree with Rehab placement. - Will follow up in 1 month to see if he can tolerate restarting any CHF meds.
[2018-04-02] MEDS ORDERED: Fluconazole 100 MG TAB PO SCH (09:00)
== END 2018-04-01 15:18 | DRG 683 ==
LOC: ERS 14:39 → 2NO 19:36
PROVIDERS: ADMIT Internal Medicine; ATTEND Internal Medicine
DX: N17.9 Acute kidney failure, unspecified (principal); N39.0 Urinary tract infection, site not specified; I50.22 Chronic systolic (congestive) heart failure; E11.9 Type 2 diabetes mellitus without complications; N40.0 Benign prostatic hyperplasia without lower urinary tract symptoms; I25.10 Atherosclerotic heart disease of native coronary artery without angina pectoris; I25.5 Ischemic cardiomyopathy; F03.90 Unspecified dementia, unspecified severity, without behavioral disturbance, psychotic disturbance, mood disturbance, and anxiety; I48.91 Unspecified atrial fibrillation; E78.5 Hyperlipidemia, unspecified; Z89.412 Acquired absence of left great toe; Z89.422 Acquired absence of other left toe(s); Z79.82 Long term (current) use of aspirin; Z79.899 Other long term (current) drug therapy; Z79.84 Long term (current) use of oral hypoglycemic drugs; Z79.1 Long term (current) use of non-steroidal anti-inflammatories (NSAID); I95.1 Orthostatic hypotension; E86.0 Dehydration
CPT/HCPCS: 36415; 36416; 70450; 71045; 74176; 80048; 80053; 81003; 81015; 82533; 82550; 82607; 83735; 84100; 84443; 84484; 85014; 85018; 85025; 85049; 87086; 93005; 93306; G8978-GP-CK; G8979-GP-CJ; J0744; J1450; J1644

== ENCOUNTER 2018-09-25 08:35 | Observation (INO) | payer MEDICARE, BC ==
--- NOTE | 2018-09-25 09:15 | RAD ---
Chest one view HISTORY: Chest pain. COMPARISON: 03/27/2008. FINDINGS: Cardiac silhouette is magnified by projection. Vasculature is unremarkable. Mediastinum is midline with a single lead left subclavian cardiac defibrillator. No lobar consolidation or evidence of pneumothorax. manager monitoring leads overlie the chest. IMPRESSION: No active cardiopulmonary abnormalities are demonstrated.
[2018-09-25 09:17] LABS: #Basophils 0.1 thou/uL (0.0-0.2); #Eosinphils 0.1 thou/uL (0.0-0.7); #Monocytes 0.7 thou/uL (0.11-0.59); #Neutrophils 5.1 thou/uL (1.40-6.50); %Eosinophils 1.3 % (0.0-10.0); %Lymphocytes 25.3 % (21.0-51.0); %Monocytes 8.6 % (0.0-10.0); %Neutrophils 63.7 % (42.0-75.0); Hemoglobin 12.5 g/dL (14.0-18.0); Mean Corpuscular HGB CONC 33.8 g/dL (32.0-36.0); Mean Corpuscular Hemoglobin 29.5 pg (27.0-31.0); Mean Corpuscular Volume 87.4 fL (78.0-98.0); Mean Platelet Volume 6.4 fL (7.4-10.4); Platelet Count 331 thou/uL (130-400); RBC Distribution Width 12.8 % (11.5-14.5); Red Blood Cell (RBC) Count 4.23 mill/uL (4.70-6.10)
[2018-09-25 09:32] LABS: ALT (SGPT) 14 U/L (8-55); AST (SGOT) 11 U/L (5-34); Albumin 3.7 g/dL (3.4-4.8); Alkaline Phosphatase 101 U/L (40-150); Anion Gap 12 mmol/L (10-20); BUN (Urea Nitrogen) 17 mg/dL (8.4-25.7); Bilirubin, Total 0.7 mg/dL (0.2-1.2); CK (CPK) 64 U/L (30-200); Calc. Creatinine Clearance 0 mL/min (70-130); Calcium 9.3 mg/dL (7.8-10.44); Carbon Dioxide 26 mmol/L (23-31); Chloride 104 mmol/L (98-107); Estimated GFR-MDRD 66; Globulin 3.3 g/dL (2.4-3.5); Glucose 320 mg/dL (83-110); Lipase 15 U/L (8-78); Potassium 3.8 mmol/L (3.5-5.1); Sodium 138 mmol/L (136-145)
[2018-09-25] MEDS ORDERED: Aspirin Chewable 81 MG TAB ONE (09:42)
--- NOTE | 2018-09-25 10:04 | CT ---
Head CT without contrast 09/25/2018: COMPARISON: 03/27/2018 HISTORY: Numbness and tingling of hands and feet, sensation abnormalities TECHNIQUE: Axial CT imaging at 5 mm intervals from vertex through skull base without contrast FINDINGS: The imaged paranasal sinuses and mastoid air cells are well aerated. No displaced calvarial fracture noted. There is mild diffuse cerebral volume loss with associated prominence of the CSF containing spaces, s table. There is no intracranial hemorrhage, midline shift, or mass effect. IMPRESSION: Stable head CT-no acute findings.
--- NOTE | 2018-09-25 12:29 | HP ---
PRIMARY CARE PROVIDER: Dr. Jakub Varghese. HISTORY OF PRESENT ILLNESS: Referred to the [facility] by [facility] for chest pain and nonsustained ventricular tachycardia. The patient awoke this morning with hands and feet tingling, became anxious, happened 10 days ago. His brought him to the emergency room. She said he was a little weak, a little stumbling this morning. The patient and the adamantly deny any chest pain or shortness of breath. PAST MEDICAL HISTORY: Pertinent for ischemic cardiomyopathy, EF 40% to 45%; atrial flutter, post ablation; nonsustained ventricular tachycardia, post AICD placement; recurrent UTIs; type 2 diabetes; benign prostatic hypertrophy; dyslipidemia; coronary artery disease, nonrevascularizable; and dementia. PAST SURGICAL HISTORY: Status post amputation of first and second toes, status post orchiectomy, status post TURPs, right hand skin graft. CURRENT MEDICATIONS: 1. Atorvastatin 20 mg a day. 2. Aspirin 325 mg a day. 3. Finasteride 5 mg a day. 4. Levemir 35 units subcu q.a.m. 5. Metoprolol 25 mg a day. 6. Myrbetriq 25 mg a day. 7. Metformin 1000 mg twice a day. ALLERGIES: NO KNOWN DRUG ALLERGIES. FAMILY HISTORY: Father had an [place]. Mother had lymphoma. SOCIAL HISTORY: Former smoker, none in decades. Full code. , lives with his . No alcohol or drug use. is surrogate decision maker. REVIEW OF SYSTEMS: HEAD: No headaches, dizziness, or fainting. EYES: No double vision, blurred vision, or flashing lights. EAR, NOSE, AND THROAT: No ear pain or drainage. No nasal bleeding. No trouble swallowing. CARDIAC: No chest pain, orthopnea, or paroxysmal nocturnal dyspnea. RESPIRATION: No cough, wheezing, or asthma. GASTROINTESTINAL: states she is not sure if he has had a BM recently. He has dementia and cannot recall. No abdominal pain, nausea, vomiting, or diarrhea. GENITOURINARY: No hematuria or dysuria. He takes medicines for BPH. MUSCULOSKELETAL: Only the numbness and tingling in his hands, which is almost resolved. NEUROLOGICAL: No strokes, seizures, or focal weakness. PSYCHIATRIC: Some dementia. SKIN: Easy bruising. No rash. HEME/LYMPH: No tender or swollen lymph nodes in the axilla, inguinal, or cervical area. PHYSICAL EXAMINATION: GENERAL: He is alert, oriented, cooperative, although he demonstrates a lack of recent memory. VITAL SIGNS: Blood pressure 136/75, pulse 85, respirations 14, and temperature 97.6. HEAD, EYES, EARS, NOSE, AND THROAT: Revealed pupils are equal and round. Extraocular movements are intact. Sclerae are white. Tympanic membranes are clear. Nose is clear. Oral mucous membranes are wet. Dental hygiene is good. NECK: No jugular venous distention, adenopathy, or thyromegaly. CHEST: Clear to auscultation and percussion. HEART: Irregular rhythm, appears to be sinus with dropped beats frequently, almost a bigeminal rhythm with PVCs. No murmurs or gallops appreciated. ABDOMEN: Soft. Bowel sounds normal. No hepatosplenomegaly. No mass. No rebound. EXTREMITIES: Reveal no cyanosis, clubbing, or edema. PULSES: Carotid, radial, femoral, and dorsalis pedis pulses are palpable. SKIN: Warm and dry without bruises or rash. HEME/LYMPH: No tender or swollen lymph nodes in axilla, inguinal, or cervical area. NEUROLOGICAL: Cranial nerves 2 through 12 are intact. Deep tendon reflexes symmetric. Decreased sensation in his hands and feet. DIAGNOSTIC DATA: EKG, sinus rhythm with PVCs in couplets, prominent U waves, reviewed by me. For some reason, a brain CT was done. No acute intracranial abnormality. Chest x-ray, no cardiomegaly, CHF, or infiltrate. Pacemaker in the left upper chest, reviewed by me. LABORATORY DATA: CBC; white count 8.0, hemoglobin 12.5, and platelet count 331,000. Comprehensive metabolic profile normal except for a blood sugar of 320. BNP 366. Troponin normal. ASSESSMENT: 1. Nonsustained ventricular tachycardia. 2. Coronary artery disease. 3. Cardiomyopathy. 4. Diabetes mellitus type 2, insulin dependent. 5. Dyslipidemia. 6. Dementia. The patient will be placed in the hospital on his home medicines. His cotton breeder and Dr. Ramos will be asked to see him. Job ID: [id number]
[2018-09-25 12:55] LABS: Troponin I Less than 0.010 ng/mL (< 0.028)
[2018-09-25] MEDS ORDERED: Ondansetron PF 4 MG/2 ML Vial IVP PRN (13:48)
[2018-09-25] MEDS ORDERED: Ondansetron ODT 4 MG TAB PO PRN ×2 (13:48→13:53)
[2018-09-25] MEDS ORDERED: Dextrose 5% in Water 1,000 ML IV PRN (13:53)
[2018-09-25] MEDS ORDERED: Dextrose 50% Abboject 50 ML SYRINGE SLOW IVP PRN (13:53)
[2018-09-25] MEDS ORDERED: Acetaminophen 325 MG TAB PO PRN (13:53)
[2018-09-25] MEDS ORDERED: HumaLOG 300 UNITS/3 ML VIAL SC PRN (13:53)
[2018-09-25 14:06] VITALS: BMI 26.4
[2018-09-25 14:07] VITALS: BP 145/96; TEMP 98.6
[2018-09-25] MEDS: Sodium Chloride 0.9% 1,000 ML IV SCH ×2 (14:23→14:46)
--- NOTE | 2018-09-25 15:47 | DIS ---
DATE OF ADMISSION: 09/25/2018 DATE OF DISCHARGE: 09/25/2018 PRIMARY CARE PROVIDER: Dr. Liu. DISPOSITION: Discharged home. FINAL DIAGNOSES: Nonsustained ventricular tachycardia, diabetes mellitus type 2, coronary artery disease, cardiomyopathy, dyslipidemia, dementia. DISCHARGE MEDICATIONS: Are same as home medicines except, 1. He was changed to metoprolol succinate 25 mg p.o. b.i.d. 2. He is on Myrbetriq 25 mg a day. 3. Metformin 1000 mg twice a day. 4. Aspirin 325 mg a day. 5. Lipitor 20 mg a day. 6. Finasteride 5 mg a day. 7. Levemir 35 units in the morning subcu. 8. Entresto 49/51 twice a day. ALLERGIES: NO KNOWN DRUG ALLERGIES. PENDING AT TIME OF DISCHARGE: Nothing. DIET: Diabetic diet. CONSULTATIONS: Dr. Jensen, Electrophysiology. HOSPITAL COURSE: The patient was referred by [facility] to the [facility] for chest pain and nonsustained ventricular tachycardia. The patient has a pacemaker. The patient's adamantly denied any chest pain. He had premature ventricular contractions and couplets on his normal EKG. On interrogation of his pacemaker, he had multiple episodes of nonsustained ventricular tachycardia. CBC; hemoglobin 12.5, white count 8.0, platelet count 331,000. Comprehensive metabolic profile normal, except for an abnormal blood sugar. Cardiac enzymes normal x2. BNP 366. The patient was seen by Dr. Ramos. His metoprolol 25 a day was changed to metoprolol 25 twice a day. He is arranging for an outpatient monitor to follow up with him in about 4 weeks. Discussed this with the patient and his . They are both comfortable with discharge. Job ID: [id number]
--- NOTE | 2018-09-25 16:25 | CON ---
DATE OF CONSULTATION: 09/25/2018 REASON FOR CONSULTATION: Nonsustained ventricular tachycardia, device management. HISTORY OF PRESENT ILLNESS: Mr. Coronado is a pleasant 77-year-old gentleman, known to our practice for history of cardiomyopathy and nonsustained ventricular tachycardia, also more recently typical atrial flutter. He underwent single-chamber ICD implant in 2015 after being found inducible for ventricular tachycardia during EP study. In 2017, he was hospitalized after having a TURP done in March and was found to be in typical atrial flutter. He underwent CTI ablation with Dr. Ramos at that time. No further atrial arrhythmias have clinically been seen since that time. He was also having hematuria following his TURP and was not on anticoagulation post ablation. He remains on aspirin. He was most recently seen in May, at which point he was found to have occasional nonsustained VT episodes, which he is asymptomatic and have not required AICD treatments. Mr. Coronado was reporting to his this morning that he was having numbness in bilateral hands and bilateral feet that feels like pins and needles. He was somewhat anxious and had a repeat episode in the recent past. He also had some slight dizziness when he was somewhat anxious about this, so they came to the emergency room. They deny that he was reporting or experiencing any chest pain or associated symptoms. REVIEW OF SYSTEMS: A 12-point review of systems is conducted, is negative except that listed above in HPI. PAST MEDICAL HISTORY: 1. Ischemic cardiomyopathy, ejection fraction most recently assessed at 45% to 50% by echo on 06/26/2018. 2. Diabetes. 3. Hypertension. 4. Coronary artery disease. 5. Aortic valve calcification. 6. Carotid artery stenosis, status post CEA in 2016. 7. Single-chamber ICD implant on 07/24/2015, after being found inducible for VT during EP study. 8. Typical atrial flutter, status post CTI ablation in March [address] Ramos. 9. Transurethral resection of prostate in March 2018 with subsequent hematuria. ALLERGIES: NONE. HOME MEDICATIONS: Include: 1. Entresto 49/51 p.o. b.i.d. 2. Levemir as directed. 3. Finasteride 5 mg at bedtime. 4. Lipitor 20 mg daily. 5. Aspirin 325 mg daily. 6. Metoprolol tartrate 25 mg p.o. b.i.d. 7. Metformin 1000 mg p.o. b.i.d. PHYSICAL EXAMINATION: VITAL SIGNS: Temperature 96.8, pulse 96, blood pressure 145/96, respirations 18, and oxygen is 99% on room air. GENERAL: The patient is alert and oriented to times, person, place, poorly oriented to situation with his baseline dementia. HEART: His heart rate is irregularly irregular with crisp S1 and S2. LUNGS: Clear to auscultation. Respirations even and nonlabored. ICDs, left infraclavicular fossa without swelling, bruising, erosion, or drainage. ABDOMEN: Soft and nontender without palpable masses. Hepatojugular reflux is negative. EXTREMITIES: Warm and dry to touch without clubbing, cyanosis, or edema. NEUROLOGIC: Gait was not assessed. DATABASE: EKG and telemetry were all personally reviewed. They display ongoing sinus rhythm with occasional couplets and PVCs, multiple morphologies. 12-lead EKG from the emergency room shows underlying sinus rhythm with frequent couplets. Echocardiogram on 06/26/2018, ejection fraction estimated at 45% to 50% and mild valvular disease. LABORATORY DATA: Hematology was unremarkable. Chemistry was unremarkable as well. Potassium 3.8, creatinine 1.08. Liver enzymes within normal limits. BNP 366. Troponins are negative. Device check, the patient has a [employer]onic Evera XT VR single-chamber ICD that was implanted on 08/13/2015. Battery longevity is 8.8 years. RV lead impedance is 437 ohms, capture threshold 0.75 V at 0.4 milliseconds, measured R-wave is 13.4 mV. Current mode VVI at 40. No treated ventricular arrhythmias. No sustained ventricular tachycardia. 11 episodes of nonsustained VT largely in the past 24 hours, lasting not exceeding 2 seconds in duration or captured. This is not a new finding for him, V sense and V pace 0.4%. Average ventricular rates have had some variability over the past couple of months, but no sustained elevated rates. OptiVol fluid index is stable and below threshold since early June. PVC runs slightly increased device was last interrogated, but the number of PVC singles has decreased slightly from last check, overall normal functioning device with no significant or sustained arrhythmia issues detected. IMPRESSION: 1. Nonsustained ventricular tachycardia, chronic finding with moderately frequent premature ventricular complexes and occasional couplets. 2. Chronic systolic heart failure and ischemic cardiomyopathy, remote history of a severely reduced ejection fraction, now estimated at 45% to 50% by echo in June 2018. 3. Adequately functioning single-chamber ICD. 4. History of atrial flutter, status post CTI ablation in March of 2018 without recurrence. 5. Paresthesias. 6. Type 2 diabetes. PLAN RECOMMENDATIONS: Mr. Coronado's device interrogation does show that he has had a handful of nonsustained ventricular tachycardia episodes, however, this is not a new indication for him when he has had a predisposition for ventricular tachycardia in the past and has had a fair amount of ventricular ectopy. My recommendation for this would be to optimize his beta-el therapy, which I will increase from metoprolol succinate 25 mg daily to 50 mg daily. His symptoms described with paresthesias could be attributed to type 2 diabetes are possibly very atypical presentation for neurologic event. His head of CT was negative for any acute intracranial process. With his history of typical atrial flutter, there is approximately 30% to 40% chance that he does develop left-sided atrial arrhythmias as well which would not be detected by his single-chamber device. I will arrange for him to wear a 2-week monitor as an outpatient and follow up with me in 4 to 6 weeks once that monitor has been completed. He is okay to discharge home and followup as an outpatient. Thank you for allowing me to participate in the care of this patient. Job ID: [id number]
[2018-09-25] MEDS ORDERED: metFORMIN 500 MG TAB PO SCH (17:00)
[2018-09-25] MEDS ORDERED: Non-Formulary Item 1 EACH (Metformin Hcl [Metformin Hcl] 1,000 MG) PO SCH (17:00)
[2018-09-25] MEDS ORDERED: Atorvastatin Calcium 20 MG TAB PO SCH (21:00)
[2018-09-25] MEDS ORDERED: Finasteride 5 MG TAB PO SCH (21:00)
[2018-09-26] MEDS ORDERED: Insulin Glargine 35 UNITS in Pre-Filled Syringe 1 EACH SC SCH (09:00)
[2018-09-26] MEDS ORDERED: Non-Formulary Item 1 EACH (Levemir Flexpen [Levemir Flexpen] 35 UNITS) SC SCH (09:00)
[2018-09-26] MEDS ORDERED: Aspirin 325 MG TAB PO SCH (09:00)
--- NOTE | 2018-09-28 15:30 | EKG ---
Test Reason : Blood Pressure : / mmHG Vent. Rate : 085 BPM Atrial Rate : 085 BPM P-R Int : 186 ms QRS Dur : 098 ms QT Int : 378 ms P-R-T Axes : 019 012 067 degrees QTc Int : 449 ms Sinus rhythm with frequent , and consecutive Premature ventricular complexes Nonspecific ST and T wave abnormality Abnormal ECG Confirmed by EDIE GIORDANO MD ([id number]), publication editor MARIA ELENA BARCENAS ([id number]) on 09/28/2018 3:30:30 PM Referred By: Confirmed By:EDIE GIORDANO MD
== END 2018-09-25 16:10 | disposition home or self-care (01) ==
LOC: ERS 08:35 → 2SW 11:20
PROVIDERS: ADMIT Internal Medicine; ATTEND Internal Medicine
DX: I47.2 Ventricular tachycardia (principal); E11.9 Type 2 diabetes mellitus without complications; I25.10 Atherosclerotic heart disease of native coronary artery without angina pectoris; I25.5 Ischemic cardiomyopathy; E78.5 Hyperlipidemia, unspecified; I11.0 Hypertensive heart disease with heart failure; I50.22 Chronic systolic (congestive) heart failure; F03.90 Unspecified dementia, unspecified severity, without behavioral disturbance, psychotic disturbance, mood disturbance, and anxiety; R20.2 Paresthesia of skin; I65.29 Occlusion and stenosis of unspecified carotid artery; I25.2 Old myocardial infarction; N40.0 Benign prostatic hyperplasia without lower urinary tract symptoms; Z87.891 Personal history of nicotine dependence; Z86.79 Personal history of other diseases of the circulatory system; Z95.810 Presence of automatic (implantable) cardiac defibrillator; Z89.422 Acquired absence of other left toe(s); Z79.4 Long term (current) use of insulin; Z79.82 Long term (current) use of aspirin; Z79.899 Other long term (current) drug therapy
CPT/HCPCS: 70450; 71045; 80053; 82550; 83690; 83880; 84484 ×2; 85025; 93005; 99285; G0378 ×2; 36415

== ENCOUNTER 2019-08-21 21:12 | Observation (INO) | payer MEDICARE, BC ==
[2019-08-21 21:56] LABS: #Basophils 0.1 thou/uL (0.0-0.2); #Eosinphils 0.2 thou/uL (0.0-0.7); #Lymphocytes 2.6 thou/uL (1.20-3.40); #Monocytes 0.8 thou/uL (0.11-0.59); #Neutrophils 8.5 thou/uL (1.40-6.50); %Basophils 0.8 % (0.0-1.0); %Eosinophils 1.4 % (0.0-10.0); %Lymphocytes 21.4 % (21.0-51.0); %Monocytes 6.8 % (0.0-10.0); %Neutrophils 69.5 % (42.0-75.0); Hemoglobin 11.7 g/dL (14.0-18.0); Mean Corpuscular Hemoglobin 29.5 pg (27.0-31.0); Mean Corpuscular Volume 89.3 fL (78.0-98.0); Platelet Count 329 thou/uL (130-400); RBC Distribution Width 13.6 % (11.5-14.5); Red Blood Cell (RBC) Count 3.98 mill/uL (4.70-6.10); White Blood Cell (WBC) Count 12.2 thou/uL (4.8-10.8)
[2019-08-21 22:27] LABS: ALT (SGPT) 12 U/L (8-55); AST (SGOT) 12 U/L (5-34); Albumin 3.5 g/dL (3.4-4.8); Alkaline Phosphatase 86 U/L (40-110); Anion Gap 16 mmol/L (10-20); BUN (Urea Nitrogen) 35 mg/dL (8.4-25.7); Bilirubin, Total 0.5 mg/dL (0.2-1.2); Calc. Creatinine Clearance 0 mL/min (70-130); Calcium 8.9 mg/dL (7.8-10.44); Carbon Dioxide 20 mmol/L (23-31); Chloride 107 mmol/L (98-107); Estimated GFR-MDRD 46; Globulin 2.8 g/dL (2.4-3.5); Glucose 70 mg/dL (83-110); Potassium 4.7 mmol/L (3.5-5.1); Protein, Total 6.3 g/dL (5.8-8.1); Sodium 138 mmol/L (136-145)
[2019-08-21 22:35] LABS: Bilirubin Negative (Negative); Blood, Urine Negative (Negative); Glucose, Urine (Dipstick) Negative (Negative); Leukocyte Negative (Negative); Nitrite Negative (Negative); Protein, Urine (Dipstick) Negative (Neg-Trace); Urobilinogen 0.2 mg/dL (Less than 2)
[2019-08-21 22:36] LABS: Clarity Clear (Clear)
[2019-08-22] MEDS ORDERED: hydrALAZINE 20 MG/ML VIAL SLOW IVP PRN (00:25)
[2019-08-22] MEDS ORDERED: Aspirin 325 MG TAB ONE (00:47)
[2019-08-22 01:59] LABS: Troponin I Less than 0.010 ng/mL (< 0.028)
[2019-08-22] MEDS ORDERED: Dextrose 50% Abboject 50 ML SYRINGE SLOW IVP PRN (02:29)
[2019-08-22] MEDS ORDERED: Dextrose 5% in Water 1,000 ML IV PRN (02:29)
[2019-08-22 03:14] VITALS: BMI 27.6
[2019-08-22 05:01] LABS: Cardiac Risk 2.6 (Less than 4.5)
[2019-08-22] MEDS: Sodium Chloride 0.9% 1,000 ML IV SCH ×2 (05:04→17:30)
--- NOTE | 2019-08-22 07:10 | RAD ---
CHEST 1 VIEW: Date: 08/21/2019 HISTORY: Slurred speech. COMPARISON: Radiograph dated 09/25/2018. FINDINGS: Lungs are clear. No pneumothorax. No effusion. Cardiac silhouette and mediastinal contours are within normal limits. No acute osseous abnormality. IMPRESSION: No acute intrathoracic abnormality. POS: HOME
--- NOTE | 2019-08-22 08:28 | ULT ---
ULTRASOUND RETROPERITONEUM COMPLETE: (RENAL) DATE: 08/22/2019 HISTORY: 78-year-old male with renal failure FINDINGS: The right kidney measures 9.5 x 5 x 5 cm. The left kidney measures 11.5 x 4.5 x 7 cm. Both kidneys have normal parenchymal echogenicity. There is no hydronephrosis. No moderate sized or large renal cystic or solid renal lesion is identified. Cursory images of the urinary bladder demonstrate no gross abnormality. IMPRESSION: Normal
[2019-08-22] MEDS: Aspirin 81 mg Enteric Coated Tablet PO SCH (10:06)
[2019-08-22] MEDS: Enoxaparin Sodium 30 MG/0.3 ML SYRINGE SC SCH (10:06)
--- NOTE | 2019-08-22 11:23 | HP ---
PRIMARY CARE PHYSICIAN: Dr. Jakub Varghese. Source of the history is from the patient and history is moderately reliable. CHIEF COMPLAINT: "I have been feeling weak in general." HISTORY OF PRESENT ILLNESS: This is a 78-year-old male patient, who had history of diabetes mellitus; dyslipidemia; benign prostatic hyperplasia; coronary artery disease, which is nonobstructive; ischemic cardiomyopathy with ejection fraction of 40% to 45%; history of atrial flutter, status post ablation in the past; sick- sinus syndrome, status post pacemaker placement; and dementia; has been brought to the emergency department as the patient has been feeling weak. According to the patient, he lives with his and usually he is able to take care of his activities of daily living without any difficulty. The patient was brought to the emergency department as the patient's noted the patient to be feeling very weak while sitting on the chair, and subsequently, the patient was not able to stand up, otherwise the patient has spontaneously movement of both upper and lower extremities. Subsequently, the patient's has concern about possible stroke and so the patient was brought to the emergency department. Otherwise, the patient denies any recent history of headache or head injury. Denies any visual disturbances. Subsequently, the patient had evaluation in the emergency department and the patient had CT scan of the head, which did not reveal any significant findings. Currently, the patient is alert, awake, and is oriented to person and place, but not to time. The patient is presently confused, otherwise has spontaneous movements of both upper and lower extremities. Currently, the patient denies any complaints of weakness involving the upper or lower extremities, and no complaints of tingling or numbness. PAST MEDICAL HISTORY: 1. Diabetes mellitus. 2. Dyslipidemia. 3. Recurrent urinary tract infection. 4. Benign prostatic hyperplasia. 5. Nonobstructive coronary artery disease. 6. Dementia. 7. Ischemic cardiomyopathy with ejection fraction of 40% to 45%. 8. Atrial flutter, status post ablation. 9. History of nonsustained ventricular tachycardia. 10. Sick-sinus syndrome. PAST SURGICAL HISTORY: None. ALLERGIES: NONE. CURRENT MEDICATIONS AT HOME: 1. Metformin 1000 mg orally twice a day. 2. Aspirin 325 mg orally once a day. 3. Metoprolol 50 mg tablet 1-1/2 tablets 2 times a day. 4. Levemir insulin 45 units subcutaneously once a day. 5. Lipitor 20 mg orally once a day. 6. Finasteride 5 mg orally once a day. SOCIAL HISTORY: He lives with his and ambulates. Otherwise the patient had chronic tobacco abuse for 20 years, which he stopped 30 years ago. Otherwise, denies any history of alcohol abuse. Denies any recreational drug abuse. FAMILY HISTORY: Significant for hypertension and diabetes mellitus. REVIEW OF SYSTEMS: As mentioned in the history of present illness, otherwise 14-point review of systems have been evaluated and noncontributory. PHYSICAL EXAMINATION: GENERAL: Elderly male patient, lying on the stretcher comfortably, not appears to be in any cardiopulmonary distress. Mucous membranes are pink and moist. Acyanotic. Anicteric. No finger clubbing, pedal edema, or lymphadenopathy. VITAL SIGNS: Temperature 98.3, BP 135/75, pulse 66, respirations 15. HEAD: Atraumatic, normocephalic. ENT: Neck is supple. No jugular venous distention. No thyromegaly or carotid bruit. EYES: Extraocular movements are intact. Pupils are equal and reactive to light bilaterally and accommodation reflex bilaterally. CHEST: Bilaterally symmetrical. Trachea is in midline. Air entry is good bilaterally with clear vesicular breath sounds. CARDIOVASCULAR: Normal intensity of S1 and S2 without S3. No murmurs or rubs appreciated. ABDOMEN: Soft without any distension. Nontender. No organomegaly. Bowel sounds are normoactive. [employer]: The patient is alert, awake, and oriented to place and person, but not to time. The patient is minimally confused. No facial asymmetry. Cranial nerves 2 through 12 are intact. The patient has grade 5/5 power involving both the upper and lower extremities. Bilateral plantars are flexor. EXTREMITIES: No edema or calf asymmetry. LABORATORY DATA: WBC 12.2, hemoglobin 11.7, hematocrit 35.6, platelets 329. Sodium 138, potassium 4.7, chloride 107, bicarb 20, anion gap 16, BUN 35, creatinine 1.4, glucose 70, calcium 8.9, total bilirubin 0.5, AST 12, ALT 12, alkaline phosphatase 86. Troponin less than 0.010. Total protein 6.3, albumin 3.5, globulin 2.8. Urinalysis reveal negative nitrites and negative leukocyte estrace. DIAGNOSTIC DATA: CT scan of the head without contrast revealed no acute intracranial abnormalities. ASSESSMENT AND PLAN: 1. Transient ischemic attack. a. Keep the patient on telemetry floor and monitor neuro checks closely. b. MRI of the brain without contrast. c. Bilateral carotid artery Doppler. d. 2D echocardiogram. e. Fasting lipid panel in the morning. f. Lipitor 40 mg orally once a day. g. Aspirin 81 mg orally once a day. h. Await home medications. 2. Renal failure. a. Renal failure: acute versus chronic kidney disease. b. Kidney ultrasound. c. IV hydration with IV fluids. d. Monitor renal functions tomorrow. e. Await nephrotoxic medications. 3. Ischemic cardiomyopathy with ejection fraction of 40% to 45%. a. Currently, the patient is well compensated and with renal failure. b. IV hydration with normal saline at 75 mL/hr and avoid fluid overload. c. Await 2D echocardiogram. d. Restart the patient on beta blockers and consider LEAH inhibitors once the patient's renal functions have been normalized. 4. Atrial flutter. a. Status post ablation. b. Start the patient on beta blockers. c. Monitor the patient on telemetry. 5. Diabetes mellitus. a. Start the patient on Levemir insulin 20 units subcutaneously at bedtime and keep the patient on Humalog insulin sliding scale coverage. 6. Benign prostatic hyperplasia. a. Continue finasteride. 7. Possible history of dementia. a. We will discuss with the patient's tomorrow regarding the patient's functional status and memory issues. Job ID: [id number] MTDD
--- NOTE | 2019-08-22 12:41 | CON ---
DATE OF CONSULTATION: 08/22/2019 REASON FOR CONSULTATION: Transient ischemic attack. Duplicate MTDD
--- NOTE | 2019-08-22 12:44 | ULT ---
BILATERAL CAROTID DUPLEX ULTRASOUND: DATE: 08/22/2019 HISTORY: TIA. TECHNIQUE: Krishna scale ultrasound with color flow and spectral Doppler imaging of the extracranial carotid artery systems performed bilaterally. FINDINGS: There is plaque formation on both sides. The peak systolic velocity in the right ICA measures 90 cm/second with an end-diastolic velocity of 1 1 cm/second and a systolic ratio of 0.65. The peak systolic velocity in the left ICA measures 108 cm/second with an end-diastolic velocity of 1 8 cm/second and a systolic ratio of 1.31. Flow in both vertebral arteries remains antegrade. IMPRESSION: No evidence of hemodynamically significant stenosis. POS: [facility]
--- NOTE | 2019-08-22 15:09 | CON ---
DATE OF CONSULTATION: 08/22/2019 REASON FOR CONSULTATION: Episode of Slurred speech. HISTORY OF PRESENT ILLNESS: A 78-year-old male with history significant for diabetes, dyslipidemia, coronary artery disease, benign prostatic hyperplasia, ischemic cardiomyopathy, atrial fibrillation, status post pacemaker placement, presented to the [facility] ER by EMS after the saw him having slurred speech and generalized weakness and they were having the usual activity inside, but then he was unable to stand up from the chair and the was concerned about possible stroke and brought him to the emergency room. He had a CT scan done, which did not reveal any acute intracranial findings. The symptoms resolved when he came to the hospital. The patient denies focal weakness, focal paresthesias, nausea, vomiting, headache, dizziness, loss of vision, or loss of swelling associated with this episode. REVIEW OF SYSTEMS: All 14 systems were reviewed and were negative except mentioned in the HPI. PAST MEDICAL HISTORY: Diabetes, dyslipidemia, benign prostatic hyperplasia, coronary artery disease, dementia, ischemic cardiomyopathy, atrial fibrillation, sick sinus syndrome, history of nonsustained ventricular tachycardia. PAST SURGICAL HISTORY: Status post pacemaker placement. ALLERGIES: NO KNOWN DRUG ALLERGIES. HOME MEDICATIONS: 1. Metformin 1000 mg twice a day. 2. Aspirin 325 mg once a day. 3. Metoprolol 50 mg tablets 1-1/2 tablets two times a day. 4. Levemir insulin 45 units subcutaneously once a day. 5. Lipitor 20 mg daily. 6. Finasteride 5 mg once a day. SOCIAL HISTORY: , lives with his . Denies alcohol or illegal drug abuse. He has a history of tobacco abuse, but left few years ago. FAMILY HISTORY: Significant for hypertension and diabetes. Objective Vital Signs & Weight: Vital Signs (12 hours) Temp Pulse Pulse Pulse Resp BP BP 08/22/19 15:00 98.1 F 99 16 08/22/19 11:00 98.7 F 88 16 08/22/19 09:07 94 102 H 119/50 L 115/51 L 08/22/19 09:04 94 102 H 119/50 L 115/51 L 08/22/19 07:44 97.9 F 95 16 BP Pulse Ox 08/22/19 15:00 123/57 L 97 08/22/19 11:00 124/75 97 08/22/19 09:07 08/22/19 09:04 08/22/19 07:44 105/44 L 98 Weight Weight 186 lb 12.8 oz I&O: 08/21/19 08/22/19 08/23/19 06:59 06:59 06:59 Intake Total 382 Balance 382 Result Diagrams: 08/22/19 15:45 08/22/19 15:45 Additional Labs: Accuchecks 08/22/19 08/22/19 08/22/19 17:26 10:32 05:25 POC Glucose 195 H 167 H 77 EKG Reviewed by me: Yes Hospitalist ROS - Medication Medications: Active Medications Generic Name Dose Route Start Last Admin Trade Name Freq PRN Reason Stop Dose Admin Aspirin 81 mg 08/22/19 09:00 08/22/19 10:06 Ecotrin PO 81 mg DAILY ATUL Administration Enoxaparin Sodium 30 mg 08/22/19 09:00 08/22/19 10:06 Lovenox SC 30 mg 0900 ATUL Administration Sodium Chloride 1,000 mls @ 75 mls/hr 08/22/19 00:30 08/22/19 17:30 Normal Saline 0.9% IV Not Given .[id number] Metoprolol Succinate 50 mg 08/22/19 09:00 08/22/19 10:06 Toprol Xl PO 50 mg DAILY ATUL Administration PHYSICAL EXAMINATION: GENERAL: Elderly male, in no acute distress. CV: Regular rate and rhythm. CHEST: Clear. ABDOMEN: Soft. NEUROLOGIC: Mental status: The patient is alert and oriented to person, place , and time. Speech is normal. Cranial nerves 2 through 12 intact. Motor, muscle tone and bulk are normal. Strength 5/5 bilaterally. Sensory intact. Cerebellar, [id number] testing intact. Gait not tested because of the patient's safety reasons. DATA Reviewed. I reviewed the CT scan, which did not reveal any acute intracranial pathology. I also reviewed the carotid Doppler, which did not reveal any hemodynamically significant stenosis. An echocardiogram was also essentially unremarkable. ASSESSMENT AND PLAN: Mr. Tin Coronado is a 78-year-old male consulted for an apparent episode of slurred speech to rule out transient ischemic attack. The patient does have risk factors for transient ischemic attack, permissive control of blood pressure at this time. Continue aspirin and Lipitor for secondary stroke prevention. 2D echocardiogram reviewed, which showed ejection fraction of 40% to 45%, stable. The patient is unable to have an MRI secondary to pacemaker. Carotid Doppler results reviewed, which did not reveal any acute hemodynamically significant stenosis. Continue neuro checks every 4 hours. PT/OT/Speech. Continue home medications. Continue medical management per primary team. Thank you for the consult. Job ID: [id number] MTDD
--- NOTE | 2019-08-22 15:46 | PDOC.EVN ---
Event Note - Event Note Event Note: Patient was seen and examined. Patient appears to have mild short-term memory loss. He reports that he is completely back to his normal baseline. Discussed the case with his at his request. The patient has been seen by Dr. Briones several times recently. He recently had another TIA type event. He was apparently placed on anticoagulation for a couple of days. He then saw Dr. Briones again. Subsequently he had his anticoagulation reduced. He recently had his aspirin reduced from 325 mg to 81 mg. He is also been on Lasix. We will repeat a BMP and a CBC. I will coordinate with his pharmacology professor to determine the plan.
[2019-08-22 15:51] LABS: #Basophils 0.1 thou/uL (0.0-0.2); #Eosinphils 0.2 thou/uL (0.0-0.7); #Lymphocytes 2.5 thou/uL (1.20-3.40); #Monocytes 0.6 thou/uL (0.11-0.59); #Neutrophils 6.2 thou/uL (1.40-6.50); %Basophils 0.6 % (0.0-1.0); %Lymphocytes 26.2 % (21.0-51.0); %Monocytes 6.2 % (0.0-10.0); %Neutrophils 65.1 % (42.0-75.0); Hemoglobin 11.3 g/dL (14.0-18.0); Mean Corpuscular HGB CONC 32.9 g/dL (32.0-36.0); Mean Corpuscular Hemoglobin 29.4 pg (27.0-31.0); Mean Corpuscular Volume 89.5 fL (78.0-98.0); Mean Platelet Volume 6.9 fL (7.4-10.4); Platelet Count 294 thou/uL (130-400); RBC Distribution Width 13.6 % (11.5-14.5); Red Blood Cell (RBC) Count 3.84 mill/uL (4.70-6.10); White Blood Cell (WBC) Count 9.5 thou/uL (4.8-10.8)
[2019-08-22 16:09] LABS: Anion Gap 15 mmol/L (10-20); BUN (Urea Nitrogen) 29 mg/dL (8.4-25.7); Calc. Creatinine Clearance 52 mL/min (70-130); Calcium 8.5 mg/dL (7.8-10.44); Carbon Dioxide 21 mmol/L (23-31); Chloride 108 mmol/L (98-107); Estimated GFR-MDRD 48; Glucose 195 mg/dL (83-110); Potassium 4.5 mmol/L (3.5-5.1); Sodium 139 mmol/L (136-145)
--- NOTE | 2019-08-22 17:48 | PDOC.HOSPP ---
- Subjective Encounter Date: 08/22/19 Encounter Time: 11:30 Subjective: Patient seen and examined at this time, no complaints overnight and "feels the best he has in days". - Objective Vital Signs & Weight: Vital Signs (12 hours) Temp Pulse Pulse Pulse Resp BP BP 08/22/19 15:00 98.1 F 99 16 08/22/19 11:00 98.7 F 88 16 08/22/19 09:07 94 102 H 119/50 L 115/51 L 08/22/19 09:04 94 102 H 119/50 L 115/51 L 08/22/19 07:44 97.9 F 95 16 BP Pulse Ox 08/22/19 15:00 123/57 L 97 08/22/19 11:00 124/75 97 08/22/19 09:07 08/22/19 09:04 08/22/19 07:44 105/44 L 98 Weight Weight 186 lb 12.8 oz I&O: 08/21/19 08/22/19 08/23/19 06:59 06:59 06:59 Intake Total 382 Balance 382 Result Diagrams: 08/22/19 15:45 08/22/19 15:45 Additional Labs: Accuchecks 08/22/19 08/22/19 08/22/19 17:26 10:32 05:25 POC Glucose 195 H 167 H 77 EKG Reviewed by me: Yes Hospitalist ROS - Medication Medications: Active Medications Generic Name Dose Route Start Last Admin Trade Name Freq PRN Reason Stop Dose Admin Aspirin 81 mg 08/22/19 09:00 08/22/19 10:06 Ecotrin PO 81 mg DAILY ATUL Administration Enoxaparin Sodium 30 mg 08/22/19 09:00 08/22/19 10:06 Lovenox SC 30 mg 0900 ATUL Administration Sodium Chloride 1,000 mls @ 75 mls/hr 08/22/19 00:30 08/22/19 17:30 Normal Saline 0.9% IV Not Given .[id number] ATUL Metoprolol Succinate 50 mg 08/22/19 09:00 08/22/19 10:06 Toprol Xl PO 50 mg DAILY ATUL Administration - Exam General Appearance: NAD, awake alert Neck: supple, no JVD, no lymphadenopathy Heart: RRR, no murmur, no gallops, no rubs Respiratory: CTAB, no wheezes, no rales, no ronchi Gastrointestinal: soft, non-tender, non-distended, normal bowel sounds Neurological: cranial nerve grossly intact, no focal deficits Musculoskeletal: normal tone, normal strength Psychiatric: normal affect, normal behavior Hosp A/P (1) TIA (transient ischemic attack) Code(s): G45.9 - TRANSIENT CEREBRAL ISCHEMIC ATTACK, UNSPECIFIED Status: Acute (2) Acute on chronic renal failure Code(s): N17.9 - ACUTE KIDNEY FAILURE, UNSPECIFIED; N18.9 - CHRONIC KIDNEY DISEASE, UNSPECIFIED Status: Acute (3) BPH (benign prostatic hyperplasia) Code(s): N40.0 - BENIGN PROSTATIC HYPERPLASIA WITHOUT LOWER URINRY TRACT SYMP Status: Chronic (4) DM type 2 (diabetes mellitus, type 2) Status: Chronic - Plan Patient states symptoms have resolved, no longer with slurred speech Awaiting ECHO and carotid doppler results, unable to complete MRI due to PM Will recheck BMP to see if any kidney improvement, continue gentle hydration Already on statin and increased to Aspirin 325mg
[2019-08-22] MEDS ORDERED: Insulin Glargine 20 UNITS in Pre-Filled Syringe 1 EACH SC SCH (21:00)
[2019-08-22] MEDS ORDERED: Atorvastatin Calcium 40 MG TAB PO SCH (21:00)
[2019-08-23] MEDS: Sodium Chloride 0.9% 1,000 ML IV SCH (05:51)
[2019-08-23] MEDS: HumaLOG 300 UNITS/3 ML VIAL SC PRN ×2 (05:52→12:16)
[2019-08-23] MEDS: Enoxaparin Sodium 30 MG/0.3 ML SYRINGE SC SCH (08:49)
[2019-08-23] MEDS: Aspirin 81 mg Enteric Coated Tablet PO SCH (08:49)
[2019-08-23 08:50] VITALS: TEMP 97.6
[2019-08-23 12:25] VITALS: BP 125/52
--- NOTE | 2019-08-23 15:49 | DIS ---
DATE OF ADMISSION: 08/21/2019 DATE OF DISCHARGE: 08/23/2019 DISCHARGE DISPOSITION AND FOLLOWUP: Patient discharged home. The patient was seen and examined on the day of discharge. Denies any new complaints. Instructed to follow up with PCP, Dr. Jakub Varghese within [address] Hernando Briones within 7 days. INPATIENT CONSULTS: Neurology with Dr. Bynum. CLINICAL COURSE: The patient is a 78-year-old male with history of diabetes mellitus; dyslipidemia; BPH; coronary artery disease; ischemic cardiomyopathy; history of atrial flutter, status post ablation; status post pacemaker placement ; and dementia, who presented for slurred speech and a general feeling of weakness. At home he was not able to stand up, but was otherwise able to move his limbs. In the ER, CT scan of the head did not reveal any significant acute findings. Unable to do an MRI due to his pacemaker not being MRI compatible. A carotid Doppler revealed no evidence of hemodynamically significant stenosis. Renal ultrasound was completed and was normal. Echo was completed and showed the patient with an EF of 50% to 55%, which was an improvement from his previous 40% to 45% EF. Neurology cleared him for discharge on increased aspirin and statin. The had concerns taking him home without first speaking with Cardiology due to him having previous similar episodes. We spoke with Dr. Briones and he agreed that the patient should be on aspirin 325 mg p.o. daily and to also hold his Lasix due to a declining kidney function. He is also to follow up with Dr. Briones in the outpatient. FINAL DIAGNOSES: 1. Transient ischemic attack. 2. Acute on chronic renal failure. 3. BPH. 4. Diabetes type 2. DISCHARGE MEDICATIONS: 1. Aspirin 325 mg p.o. daily. 2. Lipitor 40 mg p.o. at bedtime. 3. Vitamin B12 1000 mcg p.o. daily. 4. Finasteride 5 mg p.o. at bedtime. 5. Levemir 60 units subcu q.a.m. 6. Metformin 500 mg p.o. b.i.d. with meals. 7. Metoprolol tartrate 50 mg p.o. b.i.d. 8. Entresto 49/51 mg one tablet p.o. b.i.d. DISCHARGE INSTRUCTIONS: The patient was instructed to no longer take his Lasix and to increase his aspirin. Statin was also increased at discharge. He needs to follow up with Dr. Briones this week and also with his primary care physician. The patient was asked to continue to monitor blood sugars and blood pressure at home. TIME SPENT: Total time coordinating the discharge of this patient was 35 minutes. Job ID: [id number] MTDD
--- NOTE | 2019-08-28 16:12 | EKG ---
Test Reason : Blood Pressure : / mmHG Vent. Rate : 081 BPM Atrial Rate : 081 BPM P-R Int : 214 ms QRS Dur : 088 ms QT Int : 352 ms P-R-T Axes : 027 010 010 degrees QTc Int : 408 ms Sinus rhythm with 1st degree A-V block with occasional Premature ventricular complexes Otherwise normal ECG Confirmed by RAPHAEL COLVIN ([id number]), electronic news gathering editor RADHA RUTLEDGE ([id number] on 08/28/2019 4:11:10 PM Referred By: Confirmed By:RAPHAEL COLVIN
--- NOTE | 2019-09-01 15:36 | CT ---
CT BRAIN NONCONTRAST: This study was marked dictated and removed from the unread less. It is being submitted for dictation on 09/01/2019 DATE: 08/31/2019 HISTORY: 78-year-old male with dysarthria FINDINGS: There is no evidence of acute intra-axial or extra-axial hemorrhage. There is no midline shift or any other mass effect. There is no extra-axial fluid collection. There is mild ventriculomegaly of lateral ventricles and third ventricle. There is no evidence of obstructive hydrocephalus. Calvarium is intact. There is diffuse brain parenchymal volume loss. There is no interval change since 09/25/2018 and 03/27/2018. IMPRESSION: 1) No acute intracranial findings. 2) involutional changes .
== END 2019-08-23 13:55 | disposition home or self-care (01) ==
LOC: ERS 21:12 → 2SE 23:39
PROVIDERS: ADMIT Hospitalist; ATTEND Hospitalist
DX: G45.9 Transient cerebral ischemic attack, unspecified (principal); E11.22 Type 2 diabetes mellitus with diabetic chronic kidney disease; N18.9 Chronic kidney disease, unspecified; N17.9 Acute kidney failure, unspecified; N40.0 Benign prostatic hyperplasia without lower urinary tract symptoms; I25.10 Atherosclerotic heart disease of native coronary artery without angina pectoris; I25.5 Ischemic cardiomyopathy; I48.92 Unspecified atrial flutter; F03.90 Unspecified dementia, unspecified severity, without behavioral disturbance, psychotic disturbance, mood disturbance, and anxiety; I49.5 Sick sinus syndrome; Z79.4 Long term (current) use of insulin; Z79.82 Long term (current) use of aspirin; Z79.899 Other long term (current) drug therapy; Z87.891 Personal history of nicotine dependence; Z95.5 Presence of coronary angioplasty implant and graft
CPT/HCPCS: 36415; 36416; 70450; 71045; 76770; 80048; 80053; 80061; 81003; 84484; 85025; 93005; 93306; 93880; 96360; 96361; 96372; G0378; J1650; J1815

== ENCOUNTER 2020-06-22 15:38 | Inpatient (IN) | payer MEDICARE, BC ==
[2020-06-22] MEDS ORDERED: Cefepime 1 GM VIAL ONE (17:42)
[2020-06-22 17:43] LABS: #Basophils 0.1 thou/uL (0.0-0.2); #Eosinphils 0.2 thou/uL (0.0-0.7); #Lymphocytes 1.5 thou/uL (1.20-3.40); #Monocytes 0.9 thou/uL (0.11-0.59); #Neutrophils 7.6 thou/uL (1.40-6.50); %Basophils 0.7 % (0.0-1.0); %Eosinophils 1.8 % (0.0-10.0); %Lymphocytes 14.8 % (21.0-51.0); %Monocytes 8.9 % (0.0-10.0); %Neutrophils 73.7 % (42.0-75.0); Hemoglobin 9.7 g/dL (14.0-18.0); Mean Corpuscular HGB CONC 31.3 g/dL (32.0-36.0); Mean Corpuscular Volume 86.1 fL (78.0-98.0); Mean Platelet Volume 6.6 fL (7.4-10.4); Platelet Count 454 thou/uL (130-400); RBC Distribution Width 14.9 % (11.5-14.5); Red Blood Cell (RBC) Count 3.59 mill/uL (4.70-6.10); White Blood Cell (WBC) Count 10.3 thou/uL (4.8-10.8)
[2020-06-22] MEDS ORDERED: Vancomycin 1.5 GRAM/300 ML BAG 1.5 GM in Premix Bag 1 BAG IVPB SCH (17:45)
[2020-06-22 18:27] LABS: Albumin 3.3 g/dL (3.4-4.8)
[2020-06-22 18:28] LABS: Chloride 110 mmol/L (98-107)
[2020-06-22 18:29] LABS: Calcium 8.2 mg/dL (7.8-10.44); Potassium 4.7 mmol/L (3.5-5.1); Sodium 140 mmol/L (136-145)
[2020-06-22 18:30] LABS: Globulin 3.3 g/dL (2.4-3.5); Glucose 130 mg/dL (83-110); Protein, Total 6.6 g/dL (5.8-8.1)
[2020-06-22 18:31] LABS: Anion Gap 18 mmol/L (10-20); Carbon Dioxide 17 mmol/L (23-31)
[2020-06-22 18:32] LABS: Bilirubin, Total 0.5 mg/dL (0.2-1.2)
[2020-06-22 18:33] LABS: Alkaline Phosphatase 86 U/L (40-110); Calc. Creatinine Clearance 0 mL/min (70-130)
[2020-06-22 18:34] LABS: BUN (Urea Nitrogen) 37 mg/dL (8.4-25.7)
[2020-06-22 18:35] LABS: AST (SGOT) 13 U/L (5-34)
[2020-06-22 18:36] LABS: ALT (SGPT) 11 U/L (8-55)
[2020-06-22 20:17] VITALS: BMI 26.6
[2020-06-22] MEDS ORDERED: Acetaminophen 650 MG Suppository PR PRN (23:18)
[2020-06-22] MEDS ORDERED: Acetaminophen 325 MG TAB PO PRN (23:18)
[2020-06-22] MEDS ORDERED: Dextrose 50% Abboject 50 ML SYRINGE SLOW IVP PRN (23:42)
[2020-06-22] MEDS ORDERED: Dextrose 5% in Water 1,000 ML IV PRN (23:42)
[2020-06-23 05:53] LABS: #Basophils 0.1 thou/uL (0.0-0.2); #Eosinphils 0.3 thou/uL (0.0-0.7); #Lymphocytes 1.7 thou/uL (1.20-3.40); #Monocytes 0.8 thou/uL (0.11-0.59); #Neutrophils 6.2 thou/uL (1.40-6.50); %Basophils 0.7 % (0.0-1.0); %Eosinophils 2.9 % (0.0-10.0); %Monocytes 9.3 % (0.0-10.0); %Neutrophils 68.1 % (42.0-75.0); Hemoglobin 8.8 g/dL (14.0-18.0); Mean Corpuscular HGB CONC 31.9 g/dL (32.0-36.0); Mean Corpuscular Hemoglobin 27.4 pg (27.0-31.0); Mean Corpuscular Volume 85.8 fL (78.0-98.0); Mean Platelet Volume 6.4 fL (7.4-10.4); Platelet Count 376 thou/uL (130-400); RBC Distribution Width 14.6 % (11.5-14.5); White Blood Cell (WBC) Count 9.1 thou/uL (4.8-10.8)
[2020-06-23 06:17] LABS: Anion Gap 13 mmol/L (10-20); BUN (Urea Nitrogen) 28 mg/dL (8.4-25.7); Calc. Creatinine Clearance 61 mL/min (70-130); Calcium 7.8 mg/dL (7.8-10.44); Carbon Dioxide 17 mmol/L (23-31); Chloride 112 mmol/L (98-107); Glucose 122 mg/dL (83-110); Potassium 4.2 mmol/L (3.5-5.1); Sodium 138 mmol/L (136-145)
[2020-06-23] MEDS ORDERED: Zolpidem Tartrate 5 MG TAB PO PRN (07:46)
[2020-06-23] MEDS ORDERED: Senokot S 8.6-50 MG TAB PO PRN (07:46)
[2020-06-23] MEDS ORDERED: Ondansetron PF 4 MG/2 ML Vial IVP PRN (07:46)
[2020-06-23] MEDS ORDERED: Loratadine 10 MG TAB PO PRN (07:46)
[2020-06-23] MEDS ORDERED: Cepastat Lozenges 1 LOZ PO PRN (07:46)
[2020-06-23] MEDS ORDERED: Ondansetron ODT 4 MG TAB SL PRN (07:46)
[2020-06-23] MEDS ORDERED: Loperamide HCl 2 MG CAP PO PRN (07:46)
[2020-06-23] MEDS ORDERED: Bisacodyl 5 MG TAB PO PRN (07:46)
[2020-06-23] MEDS ORDERED: hydrALAZINE 20 MG/ML VIAL SLOW IVP PRN (07:46)
[2020-06-23] MEDS ORDERED: Sodium Chloride 0.65% Nasal 44 ML BOT EA NARE PRN (07:46)
[2020-06-23] MEDS ORDERED: HYDROcodone/Acetaminophen 5/325 mg Tablet PO PRN (07:46)
[2020-06-23] MEDS ORDERED: GUAIFENESIN SF SOLN 200 MG/10 ML UDCUP PO PRN (07:46)
[2020-06-23] MEDS: Cefepime 1 GM in Sodium Chloride 0.9% 100 ML IVPB SCH ×2 (08:51→20:43)
[2020-06-23] MEDS: Cyanocobalamin (Vitamin B-12) 1,000 MCG TAB PO SCH (08:54)
[2020-06-23] MEDS: Famotidine 20 MG TAB PO SCH (08:54)
[2020-06-23] MEDS: Aspirin 325 MG TAB PO SCH (08:54)
[2020-06-23] MEDS: metroNIDAZOLE 500 MG in Premix Bag 1 BAG IVPB SCH ×3 (08:54→23:01)
[2020-06-23] MEDS ORDERED: Lidocaine 1% PF 5 ML VIAL ONE (09:27)
[2020-06-23] MEDS ORDERED: Ondansetron PF 4 MG/2 ML Vial ONE (09:27)
[2020-06-23] MEDS ORDERED: PHENYLEPHRINE-NS 100 MCG/ML 10 ML SYRINGE ONE ×2 (09:27→11:18)
[2020-06-23] MEDS ORDERED: PROPOFOL 200 MG/20 ML VIAL ONE (09:27)
[2020-06-23 09:34] LABS: SARS-CoV-2 PCR by NAA Not Detected (NotDetected)
[2020-06-23] MEDS ORDERED: Fentanyl 100 MCG/2 ML VIAL ONE ×2 (09:45→11:56)
[2020-06-23] MEDS ORDERED: Promethazine HCl 25 MG/ML VIAL IM PRN (11:29)
[2020-06-23] MEDS ORDERED: Ondansetron HCl/PF 4 MG/2 ML Vial IVP PRN (11:29)
[2020-06-23] MEDS ORDERED: Promethazine HCl 25 MG/ML VIAL SLOW IVP PRN (11:29)
[2020-06-23] MEDS ORDERED: Acetaminophen 500 MG TAB PO PRN (11:34)
[2020-06-23] MEDS: VANCOMYCIN 1.25 GM/250 ML BAG 1.25 GM in Premix Bag 1 BAG IVPB SCH (17:08)
[2020-06-23] MEDS: Atorvastatin Calcium 40 MG TAB PO SCH (20:43)
[2020-06-23] MEDS: Finasteride 5 MG TAB PO SCH (20:43)
[2020-06-23] MEDS ORDERED: HumaLOG 300 UNITS/3 ML VIAL SC PRN (21:55)
[2020-06-24] MEDS: traMADol HCl 50 MG TAB PO PRN ×2 (04:49→20:32)
[2020-06-24] MEDS: HumaLOG 300 UNITS/3 ML VIAL SC PRN ×2 (05:22→16:44)
[2020-06-24] MEDS: metroNIDAZOLE 500 MG in Premix Bag 1 BAG IVPB SCH ×3 (09:08→23:45)
[2020-06-24] MEDS: Famotidine 20 MG TAB PO SCH (09:09)
[2020-06-24] MEDS: Cyanocobalamin (Vitamin B-12) 1,000 MCG TAB PO SCH (09:09)
[2020-06-24] MEDS: Aspirin 325 MG TAB PO SCH (09:09)
[2020-06-24] MEDS: Cefepime 1 GM in Sodium Chloride 0.9% 100 ML IVPB SCH ×2 (11:22→21:04)
[2020-06-24 18:16] LABS: Vancomycin, Trough 9.2 ug/mL
[2020-06-24] MEDS: VANCOMYCIN 1.25 GM/250 ML BAG 1.25 GM in Premix Bag 1 BAG IVPB SCH (18:30)
[2020-06-24] MEDS ORDERED: Vancomycin 1.5 GRAM/300 ML BAG 1.5 GM in Premix Bag 1 BAG IVPB SCH (20:00)
[2020-06-24] MEDS: Atorvastatin Calcium 40 MG TAB PO SCH (20:30)
[2020-06-24] MEDS: Finasteride 5 MG TAB PO SCH (20:30)
[2020-06-25] MEDS: HumaLOG 300 UNITS/3 ML VIAL SC PRN (05:23)
[2020-06-25 07:52] VITALS: BP 95/61; TEMP 97.9
[2020-06-25] MEDS ORDERED: Non-Formulary Item 1 EACH (Metformin Hcl [Metformin Hcl] 1,000 MG Tablet) PO SCH (08:00)
[2020-06-25] MEDS ORDERED: metFORMIN 500 MG TAB PO SCH (08:00)
[2020-06-25] MEDS: Cyanocobalamin (Vitamin B-12) 1,000 MCG TAB PO SCH (08:07)
[2020-06-25] MEDS: Famotidine 20 MG TAB PO SCH (08:07)
[2020-06-25] MEDS: metroNIDAZOLE 500 MG in Premix Bag 1 BAG IVPB SCH (08:07)
[2020-06-25] MEDS: Aspirin 325 MG TAB PO SCH (08:07)
[2020-06-25] MEDS ORDERED: Sacubitril 49 MG/Valsartan 51 MG TABLET PO SCH ×2 (09:00)
[2020-06-25] MEDS ORDERED: Non-Formulary Item 1 EACH (Levemir Flexpen [Levemir Flexpen] 100 UNITS/ML Pen) SC SCH (09:00)
[2020-06-25] MEDS ORDERED: Metoprolol Tartrate 50 MG TAB PO SCH (09:00)
[2020-06-25] MEDS ORDERED: Insulin Glargine 30 UNITS in Pre-Filled Syringe 1 EACH SC SCH (09:00)
[2020-06-25] MEDS ORDERED: Metoprolol Tartrate 25 MG TAB PO SCH (09:00)
[2020-06-25] MEDS ORDERED: Non-Formulary Item 1 EACH (Levemir Flexpen [Levemir Flexpen] 30 UNITS) SC SCH (09:00)
[2020-06-25] MEDS: Cefepime 1 GM in Sodium Chloride 0.9% 100 ML IVPB SCH (09:13)
[2020-06-25] MEDS: traMADol HCl 50 MG TAB PO PRN (10:06)
== END 2020-06-25 15:46 | disposition home health service (06) | DRG 617 ==
LOC: ERS 15:38 → T4-A 18:51
PROVIDERS: ADMIT Internal Medicine; ATTEND Internal Medicine
PROC: 0Y6Y0Z1 Detachment at Left 5th Toe, High, Open Approach (ICD-10-PCS; principal; 2020-06-23)
PROC: 0QBR0ZZ Excision of Left Toe Phalanx, Open Approach (ICD-10-PCS; 2020-06-23)
PROC: 0QBR0ZZ Excision of Left Toe Phalanx, Open Approach (ICD-10-PCS; 2020-06-23)
DX: E11.621 Type 2 diabetes mellitus with foot ulcer (principal); E11.52 Type 2 diabetes mellitus with diabetic peripheral angiopathy with gangrene; Z20.822 Contact with and (suspected) exposure to COVID-19; I13.0 Hypertensive heart and chronic kidney disease with heart failure and stage 1 through stage 4 chronic kidney disease, or unspecified chronic kidney disease; I48.20 Chronic atrial fibrillation, unspecified; M86.8X7 Other osteomyelitis, ankle and foot; I50.42 Chronic combined systolic (congestive) and diastolic (congestive) heart failure; I48.3 Typical atrial flutter; I96 Gangrene, not elsewhere classified; N17.9 Acute kidney failure, unspecified; L97.529 Non-pressure chronic ulcer of other part of left foot with unspecified severity; N40.0 Benign prostatic hyperplasia without lower urinary tract symptoms; E78.5 Hyperlipidemia, unspecified; E78.00 Pure hypercholesterolemia, unspecified; E11.22 Type 2 diabetes mellitus with diabetic chronic kidney disease; N18.9 Chronic kidney disease, unspecified; I25.10 Atherosclerotic heart disease of native coronary artery without angina pectoris; I25.5 Ischemic cardiomyopathy; I49.5 Sick sinus syndrome; E11.69 Type 2 diabetes mellitus with other specified complication; F03.90 Unspecified dementia, unspecified severity, without behavioral disturbance, psychotic disturbance, mood disturbance, and anxiety; D63.1 Anemia in chronic kidney disease; I95.9 Hypotension, unspecified; I25.2 Old myocardial infarction; Z95.810 Presence of automatic (implantable) cardiac defibrillator; Z89.412 Acquired absence of left great toe; Z89.422 Acquired absence of other left toe(s); Z79.82 Long term (current) use of aspirin; Z79.4 Long term (current) use of insulin; Z79.899 Other long term (current) drug therapy
CPT/HCPCS: 36415; 36416; 80048; 80053; 80202; 85025; 85652; 86140; 87040; 87635; 88305; 88311; 93923; 96365; 96367; J0692; J1815; J2405; J2704; J3010; J3370; J3490; U0003; U0005

== ENCOUNTER 2021-05-16 09:52 | Day surgery (SDC) | payer MEDICARE, BC ==
[2021-05-13 10:29] VITALS: BMI 25.8
[2021-05-16] MEDS ORDERED: Vancomycin 1 GM/200 ML BAG ONE (10:33)
[2021-05-16] MEDS ORDERED: Acetaminophen 500 MG TAB ONE (10:33)
[2021-05-16 11:21] LABS: #Eosinphils 0.1 thou/uL (0.0-0.7); #Lymphocytes 0.7 thou/uL (1.20-3.40); #Monocytes 0.7 thou/uL (0.11-0.59); #Neutrophils 6.5 thou/uL (1.40-6.50); %Basophils 0.3 % (0.0-1.0); %Eosinophils 0.9 % (0.0-10.0); %Lymphocytes 8.2 % (21.0-51.0); %Monocytes 8.5 % (0.0-10.0); Hemoglobin 11.1 g/dL (14.0-18.0); Mean Corpuscular HGB CONC 31.3 g/dL (32.0-36.0); Mean Corpuscular Hemoglobin 25.6 pg (27.0-31.0); Mean Corpuscular Volume 81.9 fL (78.0-98.0); Mean Platelet Volume 6.5 fL (7.4-10.4); Platelet Count 373 thou/uL (130-400); RBC Distribution Width 15.9 % (11.5-14.5); Red Blood Cell (RBC) Count 4.33 mill/uL (4.70-6.10); White Blood Cell (WBC) Count 7.9 thou/uL (4.8-10.8)
[2021-05-16] MEDS ORDERED: Fentanyl 100 MCG/2 ML VIAL ONE ×2 (11:29→13:25)
[2021-05-16 11:35] LABS: Anion Gap 14 mmol/L (10-20); BUN (Urea Nitrogen) 26 mg/dL (8.4-25.7); Calc. Creatinine Clearance 56 mL/min (70-130); Calcium 9.5 mg/dL (7.8-10.44); Carbon Dioxide 25 mmol/L (23-31); Chloride 102 mmol/L (98-107); Glucose 108 mg/dL (83-110); Potassium 4.3 mmol/L (3.5-5.1); Sodium 137 mmol/L (136-145)
[2021-05-16] MEDS ORDERED: Cefepime 2 GM in Sodium Chloride 0.9% 100 ML IVPB SCH (11:45)
[2021-05-16] MEDS ORDERED: PROPOFOL 40 ML ONE (12:14)
[2021-05-16] MEDS ORDERED: Ondansetron PF 4 MG/2 ML Vial ONE ×2 (12:15→13:17)
[2021-05-16] MEDS ORDERED: ePHEDrine 50 MG/ML VIAL ONE (12:15)
[2021-05-16] MEDS ORDERED: PROPOFOL 200 MG/20 ML VIAL ONE (12:15)
[2021-05-16] MEDS ORDERED: PHENYLEPHRINE-NS 100 MCG/ML 10 ML SYRINGE ONE ×2 (12:15→12:45)
[2021-05-16] MEDS ORDERED: ePHEDrine Sulfate 50 MG/10 ML VIAL ONE (13:17)
[2021-05-16] MEDS ORDERED: HYDROcodone/Acetaminophen 5/325 mg Tablet ONE (15:33)
== END 2021-05-16 16:10 | disposition home or self-care (01) ==
LOC: SDC 09:52
PROVIDERS: ATTEND Specialist
PROC: 0Y6N0Z5 Detachment at Left Foot, Complete 2nd Ray, Open Approach (ICD-10-PCS; principal; 2021-05-16)
PROC: 0Y6N0Z6 Detachment at Left Foot, Complete 3rd Ray, Open Approach (ICD-10-PCS; 2021-05-16)
DX: E11.69 Type 2 diabetes mellitus with other specified complication (principal); M86.172 Other acute osteomyelitis, left ankle and foot; M86.672 Other chronic osteomyelitis, left ankle and foot; E11.621 Type 2 diabetes mellitus with foot ulcer; L97.522 Non-pressure chronic ulcer of other part of left foot with fat layer exposed; E11.51 Type 2 diabetes mellitus with diabetic peripheral angiopathy without gangrene; G47.30 Sleep apnea, unspecified; Z87.891 Personal history of nicotine dependence; Z79.01 Long term (current) use of anticoagulants; Z79.02 Long term (current) use of antithrombotics/antiplatelets; Z79.4 Long term (current) use of insulin; Z79.82 Long term (current) use of aspirin; Z79.84 Long term (current) use of oral hypoglycemic drugs; Z79.899 Other long term (current) drug therapy; Z89.412 Acquired absence of left great toe; Z89.422 Acquired absence of other left toe(s); Z89.611 Acquired absence of right leg above knee; Z95.810 Presence of automatic (implantable) cardiac defibrillator
CPT/HCPCS: 36416; 80048; 85025; 88305; 88311; J0692; J2405; J2704; J3010; J3370; J3490